=== PATIENT | male | born 1965 | race Caucasian/White ===

== ENCOUNTER 2018-12-01 15:19 | Observation (INO) | payer OTHER ==
[~2018-12-01] VITALS: Ht 180.3 cm; Wt 147.1 kg
--- NOTE | 2018-12-01 16:17 | ED Chest Pain ---
General Chief Complaint: Chest Pain Stated Complaint: CHEST PAIN; EDEMA; SOB Nursing Triage Note: Patient reports intermittent sternal/substernal chest pain rated 8/10 with movement for 1 week. He also reports shortness of breath and increased lower extremity edema bilaterally. Nursing Sepsis Screen: No Definite Risk Source: patient Exam Limitations: no limitations History of Present Illness Date Seen by Provider: Dec 01, 2018 Time Seen by Provider: 15:30 Initial Comments Patient is a 53-year-old male with history of hypertension dyslipidemia who presents with intermittent daily exertional substernal chest pain radiating to his back for the past 2 weeks. Pain is described as sharp and aching and lasts for several minutes at a time. Most recent episode was just prior to ED arrival while talking to his daughter. Pain is relieved by rest. Patient reports several episodes per day. During episodes, patient reports nausea and, shortness of breath and sweats. Patient currently symptom and pain free. Denies dizziness lightheadedness, palpitations, increased sleepiness swelling. No cough, sore throat, abdominal pain. Denies history of DVT or PE. No history of CAD. No other acute symptoms or complaints. Timing/Duration: changing over time, 12-24 hours (2 weeks) Severity/Quality: moderate Location: substernal Radiation: shoulders Activities at Onset: activity Prior CP/Workup: no prior chest pain ASA po HOME CARE COORDINATOR: No NTG SL HOME CARE COORDINATOR: No Associated Symptoms: shortness of breath Allergies and Home Medications Allergies Coded Allergies: lisinopril (Verified Allergy, Unknown, 12/01/18) Patient Home Medication List Home Medication List Reviewed: Yes Review of Systems Review of Systems Constitutional: no symptoms reported EENTM: No Symptoms Reported Respiratory: No Symptoms Reported Cardiovascular: See HPI Gastrointestinal: See HPI Genitourinary: See HPI Musculoskeletal: see HPI Skin: see HPI Psychiatric/Neurological: See HPI Endocrine: See HPI Hematologic/Lymphatic: See HPI Past Eltfwus-Sswofw-Ruzuvy Hx Patient Social History Alcohol Use: Denies Use Recreational Drug Use: No Smoking Status: Never a Smoker Type Used: Smokeless Tobacco 2nd Hand Smoke Exposure: No Recent Foreign Travel: No Contact w/Someone Who Travel: No Recent Infectious Disease Expo: No Recent Hopitalizations: No Physical Abuse: No Sexual Abuse: No Mistreated: No Fear: No Seasonal Allergies Seasonal Allergies: No Past Medical History Surgeries: Yes Gallbladder Respiratory: Yes Sleep Apnea Cardiac: Yes Hypertension Neurological: No Genitourinary: No Gastrointestinal: Yes (gangrenous gallbladder with sepsis) Gall Bladder Disease Musculoskeletal: No Endocrine: No HEENT: No Cancer: No Psychosocial: No Integumentary: No Physical Exam Vital Signs Vital Signs - First Documented 12/01/18 15:23 Temp 97.4 Pulse 77 Resp 18 B/P (MAP) 161/83 (109) Pulse Ox 97 O2 Delivery Room Air Capillary Refill : Less Than 3 Seconds Height, Weight, BMI Height: 6'" Weight: 318lbs. oz. 144.958519my; BMI Method:Stated General Appearance: No Apparent Distress, WD/WN HEENT: Normal ENT Inspection Neck: Full Range of Motion, Non Tender, Supple Respiratory: Chest Non Tender, Lungs Clear Cardiovascular: Regular Rate, Rhythm Extremity: Other (negative Homans sign) Neurologic/Psychiatric: Alert, Oriented x3 Skin: Normal Color, Warm/Dry Focused Exam Sepsis Stage: Ruled Out Progress/Results/Core Measures Results/Orders Lab Results Laboratory Tests Test 12/01/18 15:35 Range/Units White Blood Count 11.5 H 4.3-11.0 10^3/uL Red Blood Count 4.89 4.35-5.85 10^6/uL Hemoglobin 13.1 L 13.3-17.7 G/DL Hematocrit 39 L 40-54 % Mean Corpuscular Volume 80 80-99 FL Mean Corpuscular Hemoglobin 27 25-34 PG Mean Corpuscular Hemoglobin Concent 33 32-36 G/DL Red Cell Distribution Width 13.5 10.0-14.5 % Platelet Count 255 130-400 10^3/uL Mean Platelet Volume 9.7 7.4-10.4 FL Neutrophils (%) (Auto) 64 42-75 % Lymphocytes (%) (Auto) 27 12-44 % Monocytes (%) (Auto) 7 0-12 % Eosinophils (%) (Auto) 1 0-10 % Basophils (%) (Auto) 1 0-10 % Neutrophils # (Auto) 7.3 1.8-7.8 X 10^3 Lymphocytes # (Auto) 3.1 1.0-4.0 X 10^3 Monocytes # (Auto) 0.8 0.0-1.0 X 10^3 Eosinophils # (Auto) 0.2 0.0-0.3 10^3/uL Basophils # (Auto) 0.1 0.0-0.1 10^3/uL D-Dimer 0.36 0.00-0.49 UG/ML Sodium Level 139 135-145 MMOL/L Potassium Level 4.4 3.6-5.0 MMOL/L Chloride Level 99 98-107 MMOL/L Carbon Dioxide Level 26 21-32 MMOL/L Anion Gap 14 5-14 MMOL/L Blood Urea Nitrogen 13 7-18 MG/DL Creatinine 1.10 0.60-1.30 MG/DL Estimat Glomerular Filtration Rate > 60 BUN/Creatinine Ratio 12 Glucose Level 175 H 70-105 MG/DL Calcium Level 9.0 8.5-10.1 MG/DL Corrected Calcium 9.0 8.5-10.1 MG/DL Total Bilirubin 0.3 0.1-1.0 MG/DL Aspartate Amino Transf (AST/SGOT) 36 H 5-34 U/L Alanine Aminotransferase (ALT/SGPT) 58 H 0-55 U/L Alkaline Phosphatase 98 40-136 U/L Troponin I < 0.30 <0.30 NG/ML Total Protein 7.3 6.4-8.2 GM/DL Albumin 4.0 3.2-4.5 GM/DL My Orders Orders - GLORIA CHERRY DO Cbc With Automated Diff (12/01/18 15:57) Comprehensive Metabolic Panel (12/01/18 15:57) Troponin I (12/01/18 15:57) Chest Pa/Lat (2 View) (12/01/18 15:57) Fibrin Degradation Products (12/01/18 15:57) Ekg Tracing (12/01/18 15:58) Aspirin Chewable Tablet (Baby Aspirin Ch (12/01/18 17:00) Vital Signs/I&O 12/01/18 12/01/18 15:23 15:23 Temp 97.4 Pulse 77 Resp 18 B/P (MAP) 161/83 (109) Pulse Ox 97 O2 Delivery Room Air Room Air Blood Pressure Mean: 109 Departure Communication (Admissions) Time/Spoke to Admitting Phy: 17:04 Exertional chest pain today with escalating severity in the past 2 weeks. Patient asymptomatic in the ED. Chest x-ray, EKG lab nondiagnostic. Aspirin given. Dr. Carpenter accepts to [facility] Impression Primary Impression: Chest pain Disposition: 09 ADMITTED INPATIENT Condition: Stable Admissions Decision to Admit Reason: Admit from ER (General) Decision to Admit/Date: Dec 01, 2018 Time/Decision to Admit Time: 17:06 Transfer Method of Transfer: EMS Departure-Patient Inst. Referrals: NO,LOCAL PHYSICIAN (PCP/Family) Primary Care Physician GLORIA CHERRY DO Dec 01, 2018 16:17
--- NOTE | 2018-12-01 16:30 | Diagnostic Imaging Report ---
CLINICAL INDICATION: Patient with chest pain x1 week. EXAM: Chest x-ray PA and lateral views. COMPARISONS: None. FINDINGS: Lungs/pleura: Lungs are clear. There is no pneumothorax. There is no pleural effusion. Mediastinum: Unremarkable. Pulmonary vasculature: Unremarkable. Heart: Unremarkable. Bones/extrathoracic soft tissue: There are mildly hypertrophic degenerative osteophytes scattered throughout the thoracic spine. IMPRESSION: There is no radiographic evidence of acute cardiopulmonary process. Dictated by: Dictated on workstation # [id number]
[2018-12-01 16:43] LABS: HEMATOCRIT 39 % (40-54); HEMOGLOBIN 13.1 G/DL (13.3-17.7); MEAN CORPUSCULAR HEMOGLOBIN 27 PG (25-34); MEAN CORPUSCULAR HGB CONC 33 G/DL (32-36); MEAN CORPUSCULAR VOLUME 80 FL (80-99); MEAN PLATELET VOLUME 9.7 FL (7.4-10.4); PLATELET COUNT 255 10^3/uL (130-400); RED CELL DISTRIBUTION WIDTH 13.5 % (10.0-14.5); WHITE BLOOD COUNT 11.5 10^3/uL (4.3-11.0)
[2018-12-01 16:45] LABS: BASOPHILS # (AUTO) 0.1 10^3/uL (0.0-0.1); BASOPHILS % (AUTO) 1 % (0-10); EOSINOPHILS # (AUTO) 0.2 10^3/uL (0.0-0.3); EOSINOPHILS % (AUTO) 1 % (0-10); LYMPHOCYTES # (AUTO) 3.1 X 10^3 (1.0-4.0); LYMPHOCYTES % (AUTO) 27 % (12-44); MONOCYTES # (AUTO) 0.8 X 10^3 (0.0-1.0); MONOCYTES % (AUTO) 7 % (0-12); NEUTROPHILS # (AUTO) 7.3 X 10^3 (1.8-7.8); NEUTROPHILS % (AUTO) 64 % (42-75)
[2018-12-01 16:46] LABS: ALKALINE PHOSPHATASE 98 U/L (40-136); BILIRUBIN,TOTAL 0.3 MG/DL (0.1-1.0); BUN/CREATININE RATIO 12; CARBON DIOXIDE 26 MMOL/L (21-32); CHLORIDE 99 MMOL/L (98-107); GFR ESTIMATED > 60; GLUCOSE 175 MG/DL (70-105); POTASSIUM 4.4 MMOL/L (3.6-5.0); SODIUM 139 MMOL/L (135-145)
[2018-12-01 16:47] LABS: ALANINE AMINOTRANSFERASE 58 U/L (0-55); TOTAL PROTEIN 7.3 GM/DL (6.4-8.2)
[2018-12-01] MEDS ORDERED: ASPIRIN 81 MG CHEW (CHILDREN'S ASA) PO ONE (17:00)
--- OUTSIDE RECORDS SUMMARY | 2018-12-01 17:43 | XMS REPORT | Continuity of Care Document ---
Author Author [facility] Organization [facility] Address Unknown Phone Unavailable Care Team Providers Care Finance And Administration Manager Name Role Phone DARIA CARRERA M.D. PCP Insurance Providers Payer Name Policy Number Subscriber Name Relationship Auto Insurance Tin Aparicio Self / Same As Patient [facility] Tin Aapricio Self / Same As Patient Chief Complaint and Reason for Visit Chief Complaint Foot Pain Reason for Visit Contusion of foot [id number] Problems Medical Problems Problem Onset Date Status Contusion of foot Unknown Active Crush injury of foot Unknown Active Medications Medication Dose Route Sig Days/Qty Instructions Order Date Discontinued Date Status Metoprolol Succinate 300 Mg OR DAILY 10/27/09 Active Meloxicam 15 Mg PO DAILY 01/15/13 Active Levothyroxine Sodium 25 Mcg PO DAILY 01/15/13 Active Tramadol Hcl 50 Mg PO Every 8 hours as needed PRN PAIN 10 Qty 11/05/14 Active Social History Social History Problem Response Recorded Date/Time Smoking Status Never smoker 11/05/2014 12:23am Query Response Start Date Stop Date Smoking Status Never smoker Hospital Discharge Instructions No hospital discharge instructions. Plan of Care Discharge Date 11/05/14 1:16am Disposition 01 HOME, SELF-CARE Condition at Discharge Stable Instructions/Education Provided Crush Injury Contusion (ED) Prescriptions See Medications Section Referrals DARIA CARRERA M.D. Additional Instructions/Education Ice to help with swelling. Use Ibuprofen up to 800mg 3x/day for mild pain and Tramadol for breakthrough pain. Follow up with your regular doctor in 3-5 days if without improvement. Functional Status No functional status results. Allergies, Adverse Reactions, Alerts Allergen Type Severity Reaction Status Last Updated No Known Drug Allergy Allergy Unknown Active 04/10/14 Immunizations No immunization records. Vital Signs Acute Vital Signs Vital Response Date/Time Blood Pressure 185/104 mm Hg Blood Pressure Mean 131 mm Hg Temperature (Fahrenheit) 98.1 degrees F (96.0 - 99.9) Temperature (Calculated Celsius) 36.53970 degrees C Temperature Source Oral Pulse Pulse Rate: ED 82 bpm Respiratory Rate 16 breaths per minute (10 - 20) Height (Feet) 5 ft Height (Inches) 11 in. Weight (Pounds) 290 lbs Height 5 ft 11 in Weight 290 lb Body Mass Index 40.4 kg/m^2 Ambulatory Vital Signs Vital Response Date/Time Height 5 ft 11 in 09/26/2012 10:15am Weight 292 lbs 09/26/2012 10:15am Blood Pressure 140/108 mm Hg 09/26/2012 10:15am Pulse Rate 68 bpm 09/26/2012 10:15am Body Surface Area 2.63 m2 09/26/2012 10:15am Body Mass Index 40.7 kg/m2 09/26/2012 10:15am Results Test Source Date Result Interp. Ref. Range Comments Alanine Aminotransferase (ALT/SGPT) January 15, 2013 12:50am 34 U/L N 5-40 COMMENT: 01 Albumin January 15, 2013 12:50am 4.0 gm/dL N 3.2-5.0 COMMENT: 01 Albumin/Globulin Ratio January 15, 2013 12:50am 1.2 L 1.4-2.4 COMMENT: 01 Alkaline Phosphatase January 15, 2013 12:50am 58 U/L N 35-125 COMMENT: 01 Anion Gap January 15, 2013 12:50am 5.8 L 6-13 COMMENT: 01 Aspartate Amino Transf (AST/SGOT) January 15, 2013 12:50am 21 U/L N 5-40 COMMENT: 01 B-Type Natriuretic Peptide January 15, 2013 12:50am 94 pg/mL N 15-100 COMMENT: 01 BUN/Creatinine Ratio January 15, 2013 12:50am 12.3 COMMENT: 01 Basophils # (Auto) January 15, 2013 12:50am 0.1 K/uL N 0-0.2 COMMENT: 01 Basophils (%) (Auto) January 15, 2013 12:50am 0.7 % N 0-1 COMMENT: 01 Blood Urea Nitrogen January 15, 2013 12:50am 14 mg/dL N 8-25 COMMENT: 01 Calcium Level January 15, 2013 12:50am 9.2 mg/dL N 8.2-10.6 COMMENT: 01 Carbon Dioxide Level January 15, 2013 12:50am 24 mEq/L N 22-34 COMMENT: 01 Chloride Level January 15, 2013 12:50am 107 mEq/L N 98-116 COMMENT: 01 Creatinine January 15, 2013 12:50am 1.14 mg/dL N 0.9-1.6 COMMENT: 01 Eosinophils # (Auto) January 15, 2013 12:50am 0.5 K/uL N 0-0.8 COMMENT: 01 Eosinophils (%) (Auto) January 15, 2013 12:50am 4.2 % N 0-7.0 COMMENT: 01 Globulin January 15, 2013 12:50am 3.3 gm/dL H 2.0-3.0 COMMENT: 01 Hematocrit January 15, 2013 12:50am 42.3 % N 40.0-54.0 COMMENT: 01 Hemoglobin January 15, 2013 12:50am 14.6 g/dL N 14.0-18.0 COMMENT: 01 Immature Blood Cells January 15, 2013 12:50am 0.2 K/uL N 0-0.4 COMMENT: 01 Lymphocytes # (Auto) January 15, 2013 12:50am 2.7 K/uL N 0.9-5.2 COMMENT: 01 Lymphocytes (%) (Auto) January 15, 2013 12:50am 22.0 % N 16.0-44.0 COMMENT: 01 Mean Corpuscular Hemoglobin January 15, 2013 12:50am 27.3 pg N 26.0-33.0 COMMENT: 01 Mean Corpuscular Hemoglobin Concent January 15, 2013 12:50am 34.5 g/dL N 31.0-36.0 COMMENT: 01 Mean Corpuscular Volume January 15, 2013 12:50am 79.3 fL L 80.0-94.0 COMMENT: 01 Mean Platelet Volume January 15, 2013 12:50am 6.1 fL L 7.0-11.0 COMMENT: 01 Monocytes # (Auto) January 15, 2013 12:50am 0.7 K/uL N 0.16-1.0 COMMENT: 01 Monocytes (%) (Auto) January 15, 2013 12:50am 5.6 % N 2.0-9.0 COMMENT: 01 Neutrophils # (Auto) January 15, 2013 12:50am 7.9 K/uL N 1.9-8.0 COMMENT: 01 Neutrophils (%) (Auto) January 15, 2013 12:50am 65.8 % N 42.0-75.0 COMMENT: 01 Platelet Count January 15, 2013 12:50am 252 K/uL N 130-400 COMMENT: 01 Potassium Level January 15, 2013 12:50am 3.8 mEq/L N 3.5-5.1 COMMENT: 01 Random Glucose January 15, 2013 12:50am 132 mg/dL H 65-115 COMMENT: 01 Red Blood Count January 15, 2013 12:50am 5.33 M/uL N 4.60-5.40 COMMENT: 01 Red Cell Distribution Width January 15, 2013 12:50am 13.9 % N 11.5-14.5 COMMENT: 01 Sodium Level January 15, 2013 12:50am 133 mEq/L N 133-145 COMMENT: 01 Total Bilirubin January 15, 2013 12:50am 0.7 mg/dL N 0.1-1.3 COMMENT: 01 Total Protein January 15, 2013 12:50am 7.3 gm/dL N 6.0-8.4 COMMENT: 01 White Blood Count January 15, 2013 12:50am 12.1 K/uL H 5.0-10.0 COMMENT: 01 Bedside Troponin I January 15, 2013 1:15am < 0.05 ng/mL 0.00-0.05 <0.05 ng/mL=NORMAL0.05 - 0.40 ng/mL=CARDIAC CONDITION >0.40 ng/mL=SUGGESTS AMI Glomerular Filtration Rate Calc January 15, 2013 12:50am > 60.00 mL/min MULTIPLY RESULT BY 1.210 IF THE PATIENT IS -AMERICANUnits are mL/min/1.73 m2 > 60 Normal kidney function 30-59 Moderately decreased kidney function 15-29 Severely decreased kidney function <15 End-stage kidney failure Procedures No known history of procedures. Encounters Encounter Location Date/Time Departed Emergency Room [facility] 11/05/14 12:19am Recent Diagnosis
[2018-12-01 19:30] VITALS: BP 174/92
[2018-12-01] MEDS ORDERED: CATHETER FLUSH 10 ML SYR IV PRN (19:30)
[2018-12-01 19:42] VITALS: BP 154/92
[2018-12-01 19:45] VITALS: BP 154/92
[2018-12-01 20:00] VITALS: BP 176/95
[2018-12-02] VITALS: BP 151/83
[2018-12-02 04:00] VITALS: BP 160/87
[2018-12-02 04:01] LABS: BASOPHILS # (AUTO) 0.1 10^3/uL (0.0-0.1); BASOPHILS % (AUTO) 0 % (0-10); EOSINOPHILS # (AUTO) 0.2 10^3/uL (0.0-0.3); EOSINOPHILS % (AUTO) 2 % (0-10); HEMATOCRIT 39 % (40-54); HEMOGLOBIN 13.2 G/DL (13.3-17.7); LYMPHOCYTES # (AUTO) 3.3 X 10^3 (1.0-4.0); LYMPHOCYTES % (AUTO) 29 % (12-44); MEAN CORPUSCULAR HEMOGLOBIN 26 PG (25-34); MEAN CORPUSCULAR HGB CONC 34 G/DL (32-36); MEAN CORPUSCULAR VOLUME 78 FL (80-99); MEAN PLATELET VOLUME 9.3 FL (7.4-10.4); MONOCYTES # (AUTO) 0.9 X 10^3 (0.0-1.0); MONOCYTES % (AUTO) 8 % (0-12); NEUTROPHILS % (AUTO) 61 % (42-75); PLATELET COUNT 225 10^3/uL (130-400); RED CELL DISTRIBUTION WIDTH 14.3 % (10.0-14.5); WHITE BLOOD COUNT 11.5 10^3/uL (4.3-11.0)
[2018-12-02 04:19] LABS: ALANINE AMINOTRANSFERASE 62 U/L (0-55); ALBUMIN 3.9 GM/DL (3.2-4.5); ALKALINE PHOSPHATASE 97 U/L (40-136); BILIRUBIN,TOTAL 0.3 MG/DL (0.1-1.0); BUN/CREATININE RATIO 10; CALCIUM 9.2 MG/DL (8.5-10.1); CARBON DIOXIDE 22 MMOL/L (21-32); CHLORIDE 104 MMOL/L (98-107); CREATININE SERUM 1.01 MG/DL (0.60-1.30); GFR ESTIMATED > 60; GLUCOSE 116 MG/DL (70-105); POTASSIUM 3.7 MMOL/L (3.6-5.0); SODIUM 137 MMOL/L (135-145); TOTAL PROTEIN 6.8 GM/DL (6.4-8.2)
--- NOTE | 2018-12-02 05:29 | Pulmonary Consultation ---
History of Present Illness History of Present Illness Date of Consultation 12/02/18 05:22 Time Seen by Provider: 05:22 Date of Admission History of Present Illness 53yo presented to ED secondary to 8/10 substernal CP over the last 2 wks. worse with exertion. Rest improved CP. During episodes, patient reports nausea and, shortness of breath and sweats. Allergies and Home Medications Allergies Coded Allergies: lisinopril (Verified Allergy, Unknown, 12/01/18) Home Medications Amlodipine Besylate 10 Mg Tablet, 10 MG PO DAILY, (Reported) Aspirin 81 Mg Tablet.dr, 81 MG PO DAILY Prescribed by: CARL WALKER on 12/02/18 1400 Carvedilol 25 Mg Tab, 25 MG PO BID, (Reported) Furosemide 40 Mg Tablet, 40 MG PO DAILY, (Reported) Meloxicam 15 Mg Tablet, 15 MG PO DAILY, (Reported) Omeprazole 40 Mg Capsule.dr, 40 MG PO DAILY, (Reported) Past Uugjxsz-Ctnejx-Jnddof Hx Patient Social History Alcohol Use: Denies Use Recreational Drug Use: No Smoking Status: Never a Smoker Type Used: Smokeless Tobacco 2nd Hand Smoke Exposure: No Recent Foreign Travel: No Contact w/Someone Who Travel: No Recent Infectious Disease Expo: No Recent Hopitalizations: No Physical Abuse: No Sexual Abuse: No Mistreated: No Fear: No Seasonal Allergies Seasonal Allergies: No Past Medical History Surgeries: Yes (3 neck surgeries and gallbladder removal) Gallbladder Respiratory: Yes (Sleep apnea) Sleep Apnea Currently Using CPAP: Yes Currently Using BIPAP: No Cardiac: Yes Hypertension Neurological: No Genitourinary: No Gastrointestinal: Yes Gall Bladder Disease Musculoskeletal: Yes Arthritis Endocrine: No HEENT: No Cancer: No Psychosocial: No Integumentary: No Blood Disorders: No Adverse Reaction/Blood Tranf: No Family Medical History Cardiovascular disease 19 MOTHER Diabetes mellitus 19 FATHER Hypertension 19 FATHER 19 MOTHER G8 BROTHER Myocardial infarction 19 MOTHER Respiratory disorder 19 MOTHER Review of Systems Time Seen by Provider: 05:39 Constitutional: No: Fever, Chills, Sweats, Weakness, Malaise, Other Eyes: No: Pain, Vision change, Conjunctivae inflammation, Eyelid inflammation, Other, Redness ENT: No: Ear pain, Ear discharge, Nose pain, Nose discharge, Nose congestion, Mouth pain, Mouth swelling, Throat pain, Throat swelling, Other Respiratory: No: Cough, Dry, Shortness of breath, SOB with excertion, Wheezing, Hemoptysis, Pleuritic Pain, Sputum, Wheezing, Other Cardiovascular: Chest Pain; No: Palpitations, Paroxysmal Noc. Dyspnea Gastrointestinal: No: Nausea, Vomiting, Abdominal Pain, Diarrhea, Constipation, Melena, Hematochezia, Other Genitourinary: No Dysuria, No Frequency, No Incontinence, No Hematuria, No Retention, No Other Musculoskeletal: No: other, neck pain, shoulder pain, arm pain, back pain, hand pain, leg pain, foot pain Sepsis Event Evaluation Height, Weight, BMI Height: 5'11.00" Weight: 325lbs. 6.0oz. 147.453207my; 45.4 BMI Method:Stated Exam Exam Vital Signs Date Time Temp Pulse Resp B/P (MAP) Pulse Ox O2 Delivery O2 Flow Rate FiO2 12/02/18 04:35 99 Room Air 12/02/18 04:00 70 17 160/87 (111) 97 Room Air 12/02/18 01:00 75 12/02/18 00:50 99 Room Air 12/02/18 00:00 79 16 151/83 (105) 98 Room Air 12/01/18 20:02 99 Room Air 12/01/18 20:00 75 17 176/95 (122) 99 Room Air 12/01/18 19:45 73 22 154/92 (112) 99 Room Air 12/01/18 19:42 98.7 75 20 154/92 98 Room Air 12/01/18 19:30 98.3 72 20 174/92 (119) 98 Room Air 12/01/18 19:19 73 12/01/18 18:32 84 16 181/68 (105) 97 Room Air 12/01/18 15:23 97.4 77 18 161/83 (109) 97 Room Air 12/01/18 15:23 Room Air I & O 12/02/18 07:00 Intake Total 360 ml Output Total 350 ml Balance 10 ml Height & Weight Height: 5'11.00" Weight: 325lbs. 6.0oz. 147.979502wd; 45.4 BMI Method:Stated General Appearance: No Apparent Distress, WD/WN HEENT: PERRL/EOMI, Normal ENT Inspection, Pharynx Normal Neck: Full Range of Motion, Non Tender, Supple Respiratory: Chest Non Tender, No Accessory Muscle Use, No Respiratory Distress, Decreased Breath Sounds Cardiovascular: Regular Rate, Rhythm, No Edema Capillary Refill: Less Than 3 Seconds Gastrointestinal: non tender, soft Extremity: Normal Capillary Refill, Normal Inspection, No Pedal Edema Neurologic/Psychiatric: Alert, Oriented x3 Skin: Normal Color, Warm/Dry Lymphatic: No Adenopathy Results Lab Laboratory Tests 12/01/18 15:35 12/02/18 03:34 Assessment/Plan Assessment/Plan CP - Now resolved -Cardiology consulted -Troponins negative x 2 HTN -start Hydralazine PRN -Start home meds once known SIMONA -Home CPAP machine. Currently using Morbid obesity with probable OHS AALIYAH PIERRE DO Dec 02, 2018 05:29
[2018-12-02] MEDS ORDERED: hydrALAZINE (APESOLINE) 20 MG/ML VIAL IV PRN (05:45)
[2018-12-02 06:00] LABS: MAGNESIUM 2.2 MG/DL (1.8-2.4); PHOSPHORUS 3.1 MG/DL (2.3-4.7)
[2018-12-02] MEDS: CATHETER FLUSH 10 ML SYR IV SCH ×3 (07:55→14:07)
[2018-12-02 08:00] VITALS: BP 154/83
[2018-12-02] MEDS ORDERED: ASPIRIN 325 MG (5 GR) TABLET PO SCH (09:00)
[2018-12-02] MEDS ORDERED: FUROSEMIDE 40 MG (LASIX) TAB PO ONE (09:30)
[2018-12-02] MEDS ORDERED: CARVEDILOL 12.5 MG (COREG) TABLET PO ONE (09:30)
[2018-12-02] MEDS ORDERED: PANTOPRAZOLE 40 MG (PROTONIX) TAB PO NR (09:43)
[2018-12-02 12:00] VITALS: BP 126/78
--- NOTE | 2018-12-02 13:35 | Short Stay Summary-Hospitalist ---
History of Present Illness HPI/Chief Complaint the patient is a 53-year-old white male who reports for the past 2 weeks he said several episodes of severe stabbing sudden onset left precordial chest pain that radiates through to his back. Several episodes of been associated with activity and is had some associated shortness of breath one episode there was some almita phoresis which caused him to present to the emergency room. The episodes last several minutes in duration. He has no known past history of cardiovascular disease but does have a history of hypertension and reported elevated triglyceride level and there is a family history for early coronary disease his mother had rather diffuse vascular disease with multiple cardiac stents as well as peripheral artery stenting beginning at the age of 40. He has a history of chronic low level her function test elevation suggesting fatty liver disease as he is quite obese and also has a history of sleep apnea. His last episode was most severe lasted 3 or 4 minutes and again was of sudden onset and quite sharp and rather focal in nature. Patient reports that is an area of covers about 2 or 3 fingers in the left lower sternal border area. There is no radiation into the neck jaw or arm. Date Seen 12/02/18 Time Seen by a Provider: 08:00 Attending Physician Carl Walker MD PCP No,Local Physician Referring Physician Date of Admission Dec 01, 2018 at 17:40 Home Medications & Allergies Home Medications Reviewed patient Home Medication Reconciliation performed by pharmacy medication reconciliations landfill gas technician and/or nursing. Patients Allergies have been reviewed. Allergies Allergies Coded Allergies lisinopril (Verified Allergy, Unknown, 12/01/18) Past Bebjhnk-Syevey-Wwfdca Hx Past Med/Social Hx: Reviewed and Corrections made Patient Social History Alcohol Use: Denies Use Recreational Drug Use: No Smoking Status: Never a Smoker Type Used: Smokeless Tobacco 2nd Hand Smoke Exposure: No Physical Abuse Screen: No Sexual Abuse: No Recent Foreign Travel: No Contact w/other who traveled: No Recent Hopitalizations: No Recent Infectious Disease Expo: No Seasonal Allergies Seasonal Allergies: No Past Medical History Surgeries: Gallbladder Currently Using CPAP: Yes Currently Using BIPAP: No Cardiac: Hypertension Gastrointestinal: Gall Bladder Disease Musculoskeletal: Arthritis History of Blood Disorders: No Adverse Reaction to Blood Malik: No Family History Cardiovascular disease 19 MOTHER Diabetes mellitus 19 FATHER Hypertension 19 FATHER 19 MOTHER G8 BROTHER Myocardial infarction 19 MOTHER Respiratory disorder 19 MOTHER Review of Systems Constitutional: no symptoms reported, see HPI Respiratory: no symptoms reported, see HPI; No cough, No dyspnea on exertion, No hemoptysis, No orthopnea, No phlegm, No short of breath, No stridor, No wheezing Cardiovascular: see HPI, chest pain, edema, Hx of Intervention, palpitations, syncope, vascular heart diseas, other Gastrointestinal: other (denies heartburn dysphasia melena or bright red blood per rectum and also denies abdominal pain or change in bowel habit.) Physical Exam Physical Exam Vital Signs Vital Signs - First Documented 12/01/18 15:23 Temp 97.4 Pulse 77 Resp 18 B/P (MAP) 161/83 (109) Pulse Ox 97 O2 Delivery Room Air Capillary Refill : Less Than 3 Seconds Height, Weight, BMI Height: 5'11.00" Weight: 324lbs. 5.0oz. 147.645319dt; 45.4 BMI Method:Stated General Appearance: No Apparent Distress, WD/WN HEENT: PERRL/EOMI, Normal ENT Inspection, Pharynx Normal Neck: Full Range of Motion, Non Tender, Supple Respiratory: Chest Non Tender, No Accessory Muscle Use, No Respiratory Distress, Decreased Breath Sounds Cardiovascular: Regular Rate, Rhythm, No Edema, No Gallop, No JVD, No Murmur, Normal Peripheral Pulses Gastrointestinal: Normal Bowel Sounds, No Organomegaly, No Pulsatile Mass, Non Tender, Soft Extremity: Normal Capillary Refill, Normal Inspection, No Pedal Edema Neurologic/Psychiatric: Alert, Oriented x3 Skin: Normal Color, Warm/Dry Lymphatic: No Adenopathy Results Results/Procedures Labs Laboratory Tests 12/01/18 15:35 12/02/18 03:34 Patient resulted labs reviewed. Short Stay Diagnosis Discharge Diagnosis-Short Stay Admission Diagnosis 1.. Chest pain acute coronary syndrome ruled out 2. Hypertension 3. Reported hyperlipidemia. 4. Elevated liver function tests strongly suspect nonalcoholic fatty liver disease 5. Obstructive sleep apnea continue home CPAP. Final Discharge Diagnosis as per admission diagnosis Conclusion Plan chest pain was rather atypical in nature but the patient has multiple risk factors for coronary artery disease. He was evaluated by Dr. Garcia and is set up for outpatient echocardiogram as well as a nuclear medicine stress testing. Serial EKGs revealed no evidence for ischemia and serial troponin levels were n ormal. Vital signs were stable. He'll be discharged on his home medications with the addition of a baby aspirin daily. Discussed the importance of portion control cutting back on carbohydrates especially in attempt to effect weight loss. Advised to follow-up with his primary care physician to discuss further therapy for his hyperlipidemia to reduce future risk for vascular disease. Clinical Quality Measures AMI/AHF: ASA po Prior to arrival: No DVT/VTE Risk/Contraindication: Risk Factor Score Per Nursin RFS Level Per Nursing on Admit: 2=Moderate CARL WALKER MD Dec 02, 2018 13:35
[2018-12-02] MEDS ORDERED: OMEP40CA36 PO (13:41)
[2018-12-02] MEDS ORDERED: MELO15TA39 PO (13:41)
[2018-12-02] MEDS ORDERED: AMLO10TA7 PO (13:45)
[2018-12-02] MEDS ORDERED: FURO40TA4 PO (13:47)
[2018-12-02] MEDS ORDERED: CRV25T PO (13:47)
--- NOTE | 2018-12-02 13:53 | Consultation-Cardiology ---
HPI-Cardiology Cardiology Consultation: Date of Consultation 12/02/18 Date of Admission Attending Physician Dequan Carpenter MD Admitting Physician Ila,Local Physician Consulting Physician Steve GARCIA MD HPI: Time Seen by a Provider: 11:30 Chief Complaint: Chest pain This is a 53-year-old gentleman with history of hypertension and hyperlipidemia. He denies diabetes and active smoking. He does have family history of premature CAD. He presented with substernal chest pain radiating to the back as well. He describes it as sharp and only for a few seconds. No exacerbating or relieving factors. Denies any other significant symptoms as well. Review of Systems-Cardiology Review of Systems Constitutional: As described under HPI; No As described under HPI, No no symptoms reported, No chills, No fever, No lightheadedness Eyes: No As described under HPI, No no symptoms reported, No blindness, No bl urred vision, No contact lenses, No drainage, No decreased acuity, No foreign body sensation, No pain, No vision change Ears/Nose/Throat: No As described under HPI, No no symptoms reported, No chronic hearing loss, No ear discharge, No ear pain, No nasal drainage, No ulcerations Respiratory: No no symptoms reported; As described under HPI; No As described under HPI, No cough, No orthopnea, No shortness of breath, No SOB with excertion Cardiovascular: No no symptoms reported; As described under HPI; No As described under HPI; chest pain; No edema, No irregular heart rate, No lightheadedness, No palpitations Gastrointestinal: No no symptoms reported, No As described under HPI, No abdomen distended, No abdominal pain, No blood streaked bowels, No constipation, No diarrhea, No nausea, No vomiting, No stool coloration changes Genitourinary: No As described under HPI, No burning, No dysuria, No discharge, No frequency, No flank pain, No hematuria, No urgency Skin: No rash, No skin related problems, No ulcerations Psychiatric/Neurological: No anxiety, No depression, No seizure, No focal weakness, No syncope Hematologic: No bleeding abnormalities SYJ-Cirmxe-Fflwox Hx Patient Social History Alcohol Use: Denies Use Recreational Drug Use: No Smoking Status: Never a Smoker Type Used: Smokeless Tobacco 2nd Hand Smoke Exposure: No Recent Foreign Travel: No Recent Infectious Disease Expo: No Hospitalization with Isolation: Denies Physical Abuse Screen: No Sexual Abuse: No Past Medical History PMH As described under Assessment. Family Medical History Family History: Cardiovascular disease 19 MOTHER Diabetes mellitus 19 FATHER Hypertension 19 FATHER 19 MOTHER G8 BROTHER Myocardial infarction 19 MOTHER Respiratory disorder 19 MOTHER Allergies and Home Medications Allergies Coded Allergies: lisinopril (Verified Allergy, Unknown, 12/01/18) Home Medications Amlodipine Besylate 10 Mg Tablet, 10 MG PO DAILY, (Reported) Carvedilol 25 Mg Tab, 25 MG PO BID, (Reported) Furosemide 40 Mg Tablet, 40 MG PO DAILY, (Reported) Meloxicam 15 Mg Tablet, 15 MG PO DAILY, (Reported) Omeprazole 40 Mg Capsule.dr, 40 MG PO DAILY, (Reported) Patient Home Medication List Home Medication List Reviewed: Yes Physical Exam-Cardiology Physical Exam Vital Signs/I&O 12/02/18 12/02/18 12/02/18 12/02/18 04:00 04:35 07:00 08:00 Temp 97.8 Pulse 70 71 74 Resp 17 15 B/P (MAP) 160/87 (111) 154/83 (106) Pulse Ox 97 99 O2 Delivery Room Air Room Air Room Air 12/02/18 12/02/18 12/02/18 12/02/18 08:00 12:00 12:00 12:47 Temp 96.0 Pulse 68 70 Resp 16 B/P (MAP) 126/78 (94) Pulse Ox 99 O2 Delivery Room Air Room Air 12/02/18 00:00 Intake Total 360 ml Output Total 350 ml Balance 10 ml Capillary Refill : Less Than 3 Seconds Constitutional: appears stated age, AAO x 3; No apparent distress; well- developed, well-nourished HEENT: PERRL; No normal ENT inspection, No TMs normal, No pharynx normal, No scleral icterus (R), No scleral icterus (L), No pale conjunctivae (R), No pale conjunctivae (L), No photophobia, No TM abnormal (R), No TM abnormal (L), No pharyngeal erythema, No tonsillar exudate, No other, No discharge, No EOMI; hearing is well preserved; No hard of hearing; oral hygience is good; No ulceration, No xanthelasmas are seen Neck: No non-tender, No full range of motion, No supple, No normal inspection, No carotid bruit, No limited range of motion, No lymphadenopathy (R), No lymphadenopathy (L), No tender lateral, No tender midline, No thyromegaly, No other; carotid pulses are 2 + bilaterally; No with good upstrokes Respiratory: No accessory muscle use, No respiratory distress, No chest tender, No chest expansion is symmetric; chest is bilaterally symmetric; No lungs clear to percussion; lungs clear to auscultation; No crackles, No rhonchi, No rales, No stridor, No wheezing, No pleural rub, No other Cardiovascular: regular rate-rhythm; No irregularly irregular, No extra beats, No parasternal heave is noted, No JVD, No edema, No bradycardia, No tachycardia, No point of maximal impulse, No cardiac thrills are palpable; S1 and S2; No gallop/S3, No gallop/S4, No diastolic murmur, No systolic murmur, No friction rub, No click, No other Gastrointestinal: No tender, No soft, No round, No distended, No pulsatile mass, No organomegaly, No guarding, No rebound, No tenderness, No hernia, No mass, No audible bowel sounds, No abnormal bowel sounds, No abdominal bruits, No spleenomegaly, No other Rectal: deferred Extremities: No normal range of motion, No non-tender, No normal inspection, No pedal edema, No calf tenderness, No normal capillary refill, No pelvis stable, No calf tenderness, No inflammation, No pedal edema, No slow capillary refill, No swelling, No other, No abrasion, No clubbing, No cyanosis, No ecchymosis, No laceration, No no lower extremity edema bilateral, No significant edema, No tenderness, No wound Neurologic/Psychiatric: no motor/sensory deficits, alert, normal mood/affect, oriented x 3, power is 5/5 both on sides Skin: No normal color, No warm/dry, No cyanosis, No cool, No diaphoresis, No damp, No ecchymosis, No jaundice, No mottled, No pallor, No rash, No tattoos/piercings, No ulcerations, No rash on exposed areas, No ulcerations on exposed areas, No other Data Review Labs Laboratory Tests 12/01/18 15:35: White Blood Count 11.5H, Red Blood Count 4.89, Hemoglobin 13.1L, Hematocrit 39L, Mean Corpuscular Volume 80, Mean Corpuscular Hemoglobin 27, Mean Corpuscular Hemoglobin Concent 33, Red Cell Distribution Width 13.5, Platelet Count 255, Mean Platelet Volume 9.7, Neutrophils (%) (Auto) 64, Lymphocytes (%) (Auto) 27, Monocytes (%) (Auto) 7, Eosinophils (%) (Auto) 1, Basophils (%) (Auto) 1, Neutrophils # (Auto) 7.3, Lymphocytes # (Auto) 3.1, Monocytes # (Auto) 0.8, Eosinophils # (Auto) 0.2, Basophils # (Auto) 0.1, D-Dimer 0.36, Sodium Level 139, Potassium Level 4.4, Chloride Level 99, Carbon Dioxide Level 26, Anion Gap 14, Blood Urea Nitrogen 13, Creatinine 1.10, Estimat Glomerular Filtration Rate > 60, BUN/Creatinine Ratio 12, Glucose Level 175H, Calcium Level 9.0, Corrected Calcium 9.0, Total Bilirubin 0.3, Aspartate Amino Transf (AST/SGOT) 36H, Alanine Aminotransferase (ALT/SGPT) 58H, Alkaline Phosphatase 98, Troponin I < 0.30, Total Protein 7.3, Albumin 4.0 12/01/18 23:49: Troponin I < 0.028 12/02/18 03:34: White Blood Count 11.5H, Red Blood Count 5.03, Hemoglobin 13.2L, Hematocrit 39L, Mean Corpuscular Volume 78L, Mean Corpuscular Hemoglobin 26, Mean Corpuscular Hemoglobin Concent 34, Red Cell Distribution Width 14.3, Platelet Count 225, Mean Platelet Volume 9.3, Neutrophils (%) (Auto) 61, Lymphocytes (%) (Auto) 29, Monocytes (%) (Auto) 8, Eosinophils (%) (Auto) 2, Basophils (%) (Auto) 0, Neutrophils # (Auto) 7.0, Lymphocytes # (Auto) 3.3, Monocytes # (Auto) 0.9, Eosinophils # (Auto) 0.2, Basophils # (Auto) 0.1, Sodium Level 137, Potassium Level 3.7, Chloride Level 104, Carbon Dioxide Level 22, Anion Gap 11, Blood Urea Nitrogen 10, Creatinine 1.01, Estimat Glomerular Filtration Rate > 60, BUN/Creatinine Ratio 10, Glucose Level 116H, Calcium Level 9.2, Corrected Calcium 9.3, Total Bilirubin 0.3, Aspartate Amino Transf (AST/SGOT) 34, Alanine Aminotransferase (ALT/SGPT) 62H, Alkaline Phosphatase 97, Total Protein 6.8, Albumin 3.9, Phosphorus Level 3.1, Magnesium Level 2.2 12/02/18 06:25: Troponin I < 0.028 ECG Impression ECG Initial ECG Rhythm: Normal Sinus Initial ECG Impression: Normal A/P-Cardiology Assessment/Admission Diagnosis Chest pain, Hypertension, Hyperlipidemia, Morbid obesity. Plan Acute coronory syndrome ruled out with negative serial troponin. Negative EKG. Echocardiogram and nuclear stress testing day after tomorrow. Patient can be discharged. However he understands that if he has severe chest pain he will seek immediate medical attention. Hypertension, continue carvedilol and amlodipine. Systolic blood pressure 126 mmHg. Hyperlipidemia, will require statin therapy. Thank you for your consultation. Please call me if you have any questions. Daisy Garcia MD, FACP, FACC, FSCAI, FHRS, CCDS Interventional Cardiology Cardiac Electrophysiology Vascular Medicine and Endovascular Interventions Clinical Quality Measures AMI/AHF: ASA po Prior to arrival: No DVT/VTE Risk/Contraindication: Risk Factor Score Per Nursin RFS Level Per Nursing on Admit: 2=Moderate Steve GARCIA MD Dec 02, 2018 1:53 pm
[2018-12-02] MEDS ORDERED: ASPI-586 PO (14:00)
[2018-12-02] MEDS ORDERED: CARVEDILOL 12.5 MG (COREG) TABLET PO SCH (21:00)
[2018-12-02] MEDS ORDERED: NON-FORMULARY MEDICATION 1 EA EA (Carvedilol (Coreg) 25 MG) PO SCH (21:00)
[2018-12-03] MEDS ORDERED: NON-FORMULARY MEDICATION 1 EA EA (Amlodipine Besylate 10 MG) PO SCH (09:00)
[2018-12-03] MEDS ORDERED: PANTOPRAZOLE 40 MG (PROTONIX) TAB PO SCH (09:00)
[2018-12-03] MEDS ORDERED: MELOXICAM 7.5 MG (MOBIC) TABLET PO SCH (09:00)
[2018-12-03] MEDS ORDERED: FUROSEMIDE 40 MG (LASIX) TAB PO SCH ×2 (09:00)
[2018-12-03] MEDS ORDERED: NON-FORMULARY MEDICATION 1 EA EA (Omeprazole 40 MG) PO SCH (09:00)
[2018-12-03] MEDS ORDERED: amLODIPine 10 MG (NORVASC) TAB PO SCH (21:00)
== END 2018-12-02 13:29 | disposition home or self-care (01) ==
LOC: EDUNIT# 15:19 → ER FS 15:22 → ICU 17:40 → UNDOADMOB 17:40 → ICU 19:15 → UNDODISOB 12-02 14:40
PROVIDERS: ADMIT Internal Medicine; ATTEND Internal Medicine
DX: R07.9 Chest pain, unspecified (principal); I10 Essential (primary) hypertension; E78.5 Hyperlipidemia, unspecified; M19.90 Unspecified osteoarthritis, unspecified site; R94.5 Abnormal results of liver function studies; G47.33 Obstructive sleep apnea (adult) (pediatric); E66.01 Morbid (severe) obesity due to excess calories; Z68.42 Body mass index [BMI] 45.0-49.9, adult; Z82.49 Family history of ischemic heart disease and other diseases of the circulatory system; Z83.3 Family history of diabetes mellitus; Z83.6 Family history of other diseases of the respiratory system; Z88.8 Allergy status to other drugs, medicaments and biological substances
CPT/HCPCS: 36415; 71046; 80053; 83735; 84100; 84484; 85025; 85379; 93005; G0378

== ENCOUNTER → 2018-12-04 | Outpatient (CLI) | payer OTHER ==
[~2018-12-04] VITALS: Ht 180.3 cm; Wt 144.2 kg
[~2018-12-04] MED LIST: AMLO10TA7 PO; ASPI-586 PO; CATHETER FLUSH 10 ML SYR IV PRN; CRV25T PO; FURO40TA4 PO; MELO15TA39 PO; OMEP40CA36 PO; REGADENOSON 0.4 MG/5 ML SYR (LEXISCAN) IV ONE
== END ==
LOC: CARD 08:02
PROVIDERS: ATTEND Internal Medicine Interventional Cardiology
DX: I51.7 Cardiomegaly (principal); I34.0 Nonrheumatic mitral (valve) insufficiency; I87.8 Other specified disorders of veins
CPT/HCPCS: 78452; 93017; 93306

== ENCOUNTER 2019-07-02 05:54 | Outpatient (CLI) | payer OTHER ==
[~2019-07-02] VITALS: Ht 180 cm; Wt 143.0 kg
[~2019-07-02 05:54] MED LIST changes: -CATHETER FLUSH 10 ML SYR IV PRN; +OMEP40CA27 PO; -OMEP40CA36 PO; -REGADENOSON 0.4 MG/5 ML SYR (LEXISCAN) IV ONE
[2019-07-02] MEDS ORDERED: OMEG-109 PO (15:52)
[2019-07-02] MEDS ORDERED: MULT1CAP27 PO (15:52)
[2019-07-02] MEDS ORDERED: TORS20TA3 PO (15:52)
== END 2019-07-02 15:55 | disposition home or self-care (01) ==
LOC: PREOP 05:54
PROVIDERS: ATTEND Surgery
DX: Z01.818 Encounter for other preprocedural examination (principal)

== ENCOUNTER 2019-07-04 09:42 | Day surgery (SDC) | payer OTHER ==
--- NOTE | 2019-07-02 02:32 | HISTORY AND PHYSICAL ---
DATE OF SERVICE: DATE OF ADMISSION 07/04/2019 ATTENDING PRIMARY CARE PHYSICIAN: Dr. Covarrubias. HISTORY OF PRESENT ILLNESS: The patient is a 53-year-old male who was referred over to us in need of a screening colonoscopy. The patient reports at this point in his life he has never had one done before. He did report that they did do a Cologuard test, which did come back Hemoccult positive. He reports he has not noticed any visible blood in the stool; however. He also denies any dark tarry stools as well as no family history of any colon cancer. He denies any diarrhea, constipation or any abdominal pain. PAST MEDICAL HISTORY: Hypercholesterolemia, anxiety, depression, hypertension. PAST SURGICAL HISTORY: Laparoscopic cholecystectomy 2017, C6-C7 fusion 2010, C4-C5 fusion 2011, ORIF C4 and C5 in 2011, left shoulder arthroscopy 1989, vasectomy in 1992. ALLERGIES: FLEXERIL, POISON YOANA. MEDICATIONS: Lipitor, Revatio, Lexapro, Zoloft, Cozaar, aspirin 81 mg, fish oil, multivitamin. SOCIAL HISTORY: Negative for smoke. Positive for chewing tobacco 40 years. Previous for alcohol. FAMILY HISTORY: Father had diabetes, hypertension. Brother had hypertension. Paternal grandfather had diabetes, myocardial infarction at 78 years of age, hypertension. Paternal grandmother had hypertension. Paternal aunt had breast cancer. VITAL SIGNS: Blood pressure is 135/79. Current weight is 306.0, height 5 feet 11 inches. REVIEW OF SYSTEMS: Well-nourished male in no acute distress. He is not experiencing any shortness of breath or difficulty breathing. No chest pain, palpitations or diaphoresis. No nausea, vomiting or abdominal pain. No diarrhea or constipation. No visible red blood per rectum; however, did report a positive Cologuard test. No dark tarry stools. No fever or chills. No recent inadvertent weight loss. All other review of systems are negative. PHYSICAL EXAMINATION: CHEST: Clear. Good breath sounds bilaterally. HEART: Regular, no murmurs. EXTREMITIES: No lower extremity edema. Negative Homans sign. HEENT: No scleral icterus. NECK: No cervical lymphadenopathy. ABDOMEN: Soft, nontender, nondistended. SKIN: Warm, dry and pink. NEUROLOGIC: Awake, alert and oriented x3. ASSESSMENT AND PLAN: A 53-year-old male who is in need of a screening colonoscopy. The risks and benefits of the procedure as well as the procedure and home care instructions were explained to the patient. The patient verbalized understanding of instructions and agrees to proceed as planned. At this time, we will proceed with scheduling the patient for a screening colonoscopy. Job ID: [id number] DocumentID: [id number] Dictated Date: 06/29/2019 09:46:08 Keeper Head Date: 06/29/2019 10:05:36 Dictated By: VIOLA ISBELL
[2019-07-04] VITALS (8 sets, daily range): BP systolic 115–137; BP diastolic 59–81
[~2019-07-04] VITALS: Ht 180 cm; Wt 143.0 kg
[~2019-07-04 09:42] MED LIST changes: +MULT1CAP27 PO; +OMEG-109 PO; +TORS20TA3 PO
[2019-07-04] MEDS ORDERED: NS IV 500 ML 500 ML ONE (09:43)
[2019-07-04] MEDS ORDERED: NS IV 500 ML 500 ML IV PRN (09:46)
[2019-07-04] MEDS ORDERED: LIDOCAINE JELLY 2% 6 ML SYRINGE MM PRN (10:00)
[2019-07-04] MEDS ORDERED: fentaNYL INJECTION 100 MCG/2 ML AMP IVP ONE (10:00)
[2019-07-04] MEDS ORDERED: MIDAZOLAM 5 MG/5 ML (VERSED) VIAL IV PRN (10:00)
[2019-07-04] MEDS ORDERED: LIDOCAINE JELLY 2% 6 ML SYRINGE ONE (10:08)
[2019-07-04] MEDS ORDERED: fentaNYL INJECTION 100 MCG/2 ML AMP ONE (10:09)
[2019-07-04] MEDS ORDERED: MIDAZOLAM 5 MG/5 ML (VERSED) VIAL ONE ×2 (10:09)
--- NOTE | 2019-07-04 10:10 | Conscious Sedation/ASA ---
Conscious Sedation Pre-Proced Time 10:00 ASA Score 2 For ASA 3 and 4: Consider anesthesia and medical clearance. Also, for patients with a history of failed moderate sedation consider anesthesia. Airway Lungs Heart ASA score ASA 1: a normal healthy patient ASA 2: a patient with a mild systemic disease (mid diabetes, controlled hypertension, obesity ASA 3: a patient with a severe systemic disease that limits activity (angina, COPD, prior Myocardial infarction) ASA 4: a patient with an incapacitating disease that is a constant threat to life (CHF, renal failure) ASA 5: a moribund patient not expected to survive 24 hrs. (ruptured aneurysm) ASA 6: a declared brain- patient whose organs are being harvested. For emergent operations, add the letter E after the classification Mallampati Classification Grade 2 Sedation Plan Analgesia, Amnesia, Plan communicated to team members, Discussed options with patient/fam, Discussed risks with patient/fam The patient is an appropriate candidate to undergo the planned procedure, sedation, and anesthesia. The patient immediately re-assessed prior to indication. CAROLINE GUERRERO MD Jul 04, 2019 10:10
--- NOTE | 2019-07-04 10:11 | Progress Note-Pre Operative ---
Pre-Operative Progress Note H&P Reviewed The H&P was reviewed, patient examined and no changes noted. Date Seen by Provider: Jul 04, 2019 Time Seen by Provider: 10:00 Date H&P Reviewed: Jul 04, 2019 Time H&P Reviewed: 10:00 Pre-Operative Diagnosis: CAROLINE Keane MD Jul 04, 2019 10:11
--- NOTE | 2019-07-04 10:13 | Discharge Inst-Surgical ---
D/C Lap Instructions-YOLANDA Follow Up Activity as tolerated High Fiber Diet 25g or more per day Avoid Alcohol, Caffeine, Spicy [place] and Acid foods. Drink 64 fluid oz or more of fluids per day. Symptoms to Report: Fever over 101 degree F, Nausea/Vomiting If any problems/questions: Contact your physician or go to Emergency Room CAROLINE GUERRERO MD Jul 04, 2019 10:13
[2019-07-04] MEDS ORDERED: HYDROcodone/APAP 5 MG/325 MG (LORTAB) TAB PO PRN (10:15)
[2019-07-04] MEDS ORDERED: ONDANSETRON 4 MG/2 ML (SDV) Z0FRAN IVP PRN (10:15)
[2019-07-04] MEDS ORDERED: ACETAMINOPHEN 325 MG TABLET PO PRN (10:15)
[2019-07-04] MEDS ORDERED: morphine INJ 10 MG/ML 1ML (SYR OR VIAL) IVP PRN ×2 (10:15)
--- NOTE | 2019-07-04 10:40 | Progress Note-Post Operative ---
Post-Operative Progess Note Surgeon (s)/Watch Repair Person (s) Surgeon CAROLINE GUERRERO MD Watch Repair Person: none Pre-Operative Diagnosis screening colo Post-Operative Diagnosis mild chronic stage 2 ext and int hemorrhoids. Procedure & Operative Findings Date of Procedure 07/04/19 Procedure Performed/Findings colonoscopy Anesthesia Type cs Estimated Blood Loss Estimated blood loss (mL): minimal Specimens/Packing Specimens Removed none CAROLINE GUERRERO MD Jul 04, 2019 10:39
--- NOTE | 2019-07-04 14:57 | OPERATIVE REPORT ---
DATE OF SERVICE: 07/04/2019 ATTENDING PRIMARY CARE PHYSICIAN: Dr. Hayedn Covarrubias. PREOPERATIVE DIAGNOSIS: Screening colonoscopy. POSTOPERATIVE DIAGNOSES: Mild chronic stage II external and internal hemorrhoids. PROCEDURE: Colonoscopy. SURGEON: Caroline Guerrero MD. ANESTHESIA: Conscious sedation. ESTIMATED BLOOD LOSS: Minimal. FINDINGS: Same as postoperative diagnoses. DISPOSITION: The patient tolerated the procedure well. INDICATIONS: The patient is a 53-year-old male who was referred over to us for screening colonoscopy. He has not had a colonoscopy up to this point in his life. He does not report any major issues with diarrhea nor constipation as well as no red blood per rectum nor any dark tarry stools. He did undergo Cologuard test, which did come back positive. DESCRIPTION OF PROCEDURE: The patient was brought to the endoscopy suite, laid in left lateral decubitus position. After adequate IV pain and sedative medications and conscious sedation anesthesia, a digital rectal examination was performed, which revealed mild chronic stage II external and internal hemorrhoids, not actively edematous nor inflamed and no bleeding. Normal sphincter tone was felt and there were no palpable masses. Prostate gland was palpable and appeared normal. The endoscope was then intubated into anus and rectum gently insufflated. The endoscope was then advanced to the valves of Rosario of the rectum with no polyps or any neoplasms identified. Through the sigmoid colon, there were no diverticulosis identified. The endoscope was then advanced to the remainder of the descending, transverse and ascending colon to the cecum. These segments were normal. There were no polyps or any neoplasms identified throughout the colon or rectum. Endoscope was then slowly withdrawn while taking a second look and suctioning of residual air with no additional findings. The patient tolerated the procedure well. We will recommend medical management with a high fiber diet with 30 grams of fiber a day as well as significant amounts of water to promote soft stools on a daily basis. He does not have any family history of colon cancer and if he is asymptomatic, he may wait 10 years for his next colonoscopy. Job ID: [id number] DocumentID: [id number] Dictated Date: 07/04/2019 10:35:16 Handcrew Foreman Date: 07/04/2019 14:56:41 Dictated By: CAROLINE GUERRERO MD
== END 2019-07-04 11:10 | disposition home or self-care (01) ==
LOC: ENDO 09:42
PROVIDERS: ATTEND Surgery
DX: Z12.11 Encounter for screening for malignant neoplasm of colon (principal); K64.1 Second degree hemorrhoids; E78.00 Pure hypercholesterolemia, unspecified; F41.9 Anxiety disorder, unspecified; F32.9 Major depressive disorder, single episode, unspecified; I10 Essential (primary) hypertension; F17.220 Nicotine dependence, chewing tobacco, uncomplicated; Z98.1 Arthrodesis status; Z79.82 Long term (current) use of aspirin; Z79.899 Other long term (current) drug therapy

== ENCOUNTER 2020-05-10 18:44 | Emergency (ER) | payer BC, OTHER ==
[~2020-05-10 18:44] MED LIST changes: +AMLO-251 PO; -AMLO10TA7 PO
--- NOTE | 2020-05-10 19:41 | ED Fall/Injury ---
General Chief Complaint: Trauma-Non Activation Stated Complaint: FALL; LT LEG INJ Nursing Triage Note: Pt states he missed a step and fell on the porch tonight. Pt presents with left upper leg pain Source: patient History of Present Illness Date Seen by Provider: May 10, 2020 Time Seen by Provider: 18:58 Initial Comments 54-year-old male presents after missing a step on his front porch and slipping. He hit his left leg on a cinderblock when he fell. He states that he has increased pain with trying to bear any weight. He also bumped his head on an infant's bed that was in the yard. He denies losing consciousness or having any significant head or neck pain. He does have chronic neck pain but states it is not any worse than normal. He denies any new numbness or tingling in his arms or legs. He has had no loss of bowel or bladder control. 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 Allergies and Home Medications Allergies Coded Allergies: cyclobenzaprine (Verified Allergy, Mild, ITCHING, 07/02/19) lisinopril (Verified Allergy, Mild, COUGH, 07/02/19) Home Medications Amlodipine Besylate 10 Mg Tablet, 10 MG PO DAILY, (Reported) Aspirin 81 Mg Tablet.dr, 81 MG PO DAILY Prescribed by: CARL WALKER on 12/02/181399 Carvedilol 25 Mg Tab, 25 MG PO BID, (Reported) Furosemide 40 Mg Tablet, 40 MG PO DAILY, (Reported) Meloxicam 15 Mg Tablet, 15 MG PO DAILY, (Reported) Multivitamin 1 Each Capsule, 1 EACH PO DAILY, (Reported) [place]-3 Fatty Acids/Fish Oil 1 Each Capsule, 1 EACH PO DAILY, (Reported) Omeprazole 40 Mg Capsule.dr, 40 MG PO DAILY, (Reported) Torsemide 20 Mg Tablet, 40 MG PO Q48H, (Reported) Patient Home Medication List Home Medication List Reviewed: Yes Review of Systems Review of Systems Constitutional: No chills, No dizziness, No fever Eyes: No Symptoms Reported Ears, Nose, Mouth, Throat: no symptoms reported Respiratory: no symptoms reported Cardiovascular: no symptoms reported Gastrointestinal: No nausea, No vomiting Genitourinary: no symptoms reported Musculoskeletal: see HPI Skin: see HPI, other (abrasions and contusion to left lateral thigh and leg) Psychiatric/Neurological: Denies Headache, Denies Numbness, Denies Paresthesia Past Siljwuq-Svjtdq-Rzpcam Hx Past Med/Social Hx: Reviewed Nursing Past Med/Soc Hx Patient Social History Alcohol Use: Denies Use Recreational Drug Use: No Type Used: Smokeless Tobacco 2nd Hand Smoke Exposure: No Recent Foreign Travel: No Contact w/Someone Who Travel: No Recent Infectious Disease Expo: No Recent Hopitalizations: No Physical Abuse: No Sexual Abuse: No Seasonal Allergies Seasonal Allergies: No Past Medical History Surgeries: Yes (3 neck surgeries, SHOULDER, ) Gallbladder, Vasectomy Respiratory: Yes Sleep Apnea Currently Using CPAP: Yes Currently Using BIPAP: No Cardiac: Yes (PASSED STRESS TEST 2019) Hypertension Neurological: No Sexually Transmitted Disease: No HIV/AIDS: No Genitourinary: No Gastrointestinal: Yes Gastroesophageal Reflux Musculoskeletal: Yes Arthritis Endocrine: No HEENT: No Loss of Vision: Denies Hearing Impairment: Denies Cancer: No Psychosocial: No Integumentary: No Blood Disorders: No Adverse Reaction/Blood Tranf: No (N/A) Family Medical History Cardiovascular disease 19 MOTHER Diabetes mellitus 19 FATHER Hypertension 19 FATHER 19 MOTHER G8 BROTHER Myocardial infarction 19 MOTHER Respiratory disorder 19 MOTHER Physical Exam Vital Signs Vital Signs - First Documented 05/10/20 18:50 Pulse 70 Resp 18 B/P (MAP) 175/69 (104) Pulse Ox 100 O2 Delivery Room Air Capillary Refill : Less Than 3 Seconds Height, Weight, BMI Height: 5'11.00" Weight: 318lbs. 0.0oz. 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, alert, oriented x 3 Skin: warm/dry, other (abrasions to left thigh and leg) Shawn Coma Score Best Eye Response: (4) Open Spontaneously Best Verbal Response: (5) Oriented Best Motor Response: (6) Obeys Commands Shawn Total: 15 Progress/Results/Core Measures Results/Orders My Orders Orders - NILO GALLO MD Femur 2 View Left (05/10/20 19:15) Tibia Fibula 2 View Left (05/10/20 19:15) Franklin Bandage (05/10/20 19:58) Ice: Apply To Affected Area (05/10/20 19:58) Acetaminophen Tablet (Tylenol Tablet) (05/10/20 19:58) Vital Signs/I&O 05/10/20 05/10/20 18:50 20:08 Pulse 70 70 Resp 18 18 B/P (MAP) 175/69 (104) 175/69 (104) Pulse Ox 100 100 O2 Delivery Room Air Room Air Blood Pressure Mean: 104 Progress Progress Note #1: Progress Note obtain femur and tib/fib xrays. Progress Note #2: Progress Note no acute fracture or dislocation on imaging. treat with franklin bandage for compression, ice packs for pain and swelling, acetaminophen on top of his meloxicam he takes at home already for chronic neck pain. He also reports having an appt on Tuesday with Dr. Covarrubias for follow up. 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 He also refused crutches or walker and stated he would hobble around on his leg rather than use the devices. Diagnostic Imaging Diagonstic Imaging: Xray Plain Films/CT/US/NM/MRI: femur Comments [facility] [place], [place] NAME: APARICIOELENA Rome [facility] REC#: [id number] PT STATUS: REG ER : 1965 PHYSICIAN: NILO GALLO MD ADMIT DATE: 05/10/20/ER FS Draft Date of Exam:05/10/20 FEMUR 2 VIEW LEFT INDICATION: Left thigh pain after fall. COMPARISON: Left tibia and fibula radiographs performed concurrently. TECHNIQUE: AP and lateral views of the left femur. FINDINGS: There is no acute fracture within the left femur. The hip and knee are grossly normal in alignment. Mild degenerative arthritis of the left hip. No soft tissue gas or radiopaque foreign body. No appreciable knee joint effusion. IMPRESSION: No fracture in the left femur. Dictated on workstation # [id number] Dict: 05/10/201940 Trans: 05/10/201944 [facility] [id number] Interpreted by: WILLIAMS STEPHENSON MD Electronically signed by: Liligonsharshad Imaging: Xray Plain Films/CT/US/NM/MRI: leg Comments [facility]. [place], [place] NAME: ELENA APARICIO [facility] REC#: [id number] PT STATUS: REG ER : 1965 PHYSICIAN: NILO GALLO MD ADMIT DATE: 05/10/20/ER FS Draft Date of Exam:05/10/20 TIBIA FIBULA 2 VIEW LEFT INDICATION: Left leg pain after fall. COMPARISON: None available. TECHNIQUE: Two views of the left tibia and fibula. FINDINGS: No acute fracture or traumatic malalignment. Smooth periosteal thickening in the proximal tibia may be due to old injury. No radiopaque foreign body or soft tissue gas. IMPRESSION: No acute fracture in the left lower leg. Dictated on workstation # [id number] Dict: 05/10/201941 Trans: 05/10/201945 [facility] [id number] Interpreted by: WILLIAMS STEPHENSON MD Electronically signed by: Departure Impression Primary Impression: Pain of left lateral upper thigh Additional Impressions: Contusion of left thigh, initial encounter Contusion of left lower leg, initial encounter Abrasion, left lower leg, initial encounter Abrasion, left thigh, initial encounter Fall from steps Qualified Codes: W10.9XXA - Fall (on) (from) unspecified stairs and steps, initial encounter Disposition: HOME, SELF-CARE Condition: Stable Departure-Patient Inst. Decision time for Depature: 20:03 Referrals: TERRA COVARRUBIAS MD (PCP/Family) Primary Care Physician Patient Instructions: Abrasions ED, Minor Contusion ED Add. Discharge Instructions: Use compression wraps to help with pain and swelling. Keep abrasions clean with soap and water. May apply antibiotic ointment 2-3 times a day as needed to help the abrasions heal May take Acetaminophen in addition to your Meloxicam at home to treat your pain. Ice 20-30 minutes every few hours as needed for pain and swelling as well. Try to rest and elevate your leg when you can to help with pain and swelling. All discharge instructions reviewed with patient and/or family. Voiced understanding. Images Extremities-Lower 1 - Abrasion, Contusion, Tenderness 2 - Abrasion, Contusion, Tenderness NILO GALLO MD May 10, 2020 19:41
--- NOTE | 2020-05-10 19:46 | Diagnostic Imaging Report ---
INDICATION: Left thigh pain after fall. COMPARISON: Left tibia and fibula radiographs performed concurrently. TECHNIQUE: AP and lateral views of the left femur. FINDINGS: There is no acute fracture within the left femur. The hip and knee are grossly normal in alignment. Mild degenerative arthritis of the left hip. No soft tissue gas or radiopaque foreign body. No appreciable knee joint effusion. IMPRESSION: No fracture in the left femur. Dictated by: Dictated on workstation # [id number]
--- NOTE | 2020-05-10 19:47 | Diagnostic Imaging Report ---
INDICATION: Left leg pain after fall. COMPARISON: None available. TECHNIQUE: Two views of the left tibia and fibula. FINDINGS: No acute fracture or traumatic malalignment. Smooth periosteal thickening in the proximal tibia may be due to old injury. No radiopaque foreign body or soft tissue gas. IMPRESSION: No acute fracture in the left lower leg. Dictated by: Dictated on workstation # [id number]
[2020-05-10] MEDS ORDERED: ACETAMINOPHEN 500 MG TAB (TYLENOL) PO STA (19:58)
[2020-05-10 20:08] VITALS: BP 175/69
== END 2020-05-10 20:08 | disposition home or self-care (01) ==
LOC: EDUNIT# 18:44 → ER FS 18:47
DX: S70.12XA Contusion of left thigh, initial encounter (principal); S80.12XA Contusion of left lower leg, initial encounter; S00.03XA Contusion of scalp, initial encounter; I10 Essential (primary) hypertension; K21.9 Gastro-esophageal reflux disease without esophagitis; R40.2410 Glasgow coma scale score 13-15, unspecified time; Z82.49 Family history of ischemic heart disease and other diseases of the circulatory system; Z83.3 Family history of diabetes mellitus; Z88.8 Allergy status to other drugs, medicaments and biological substances; Z79.82 Long term (current) use of aspirin; W10.9XXA Fall (on) (from) unspecified stairs and steps, initial encounter
CPT/HCPCS: 73552; 73590

== ENCOUNTER 2020-05-12 19:05 | Emergency (ER) | payer OTHER ==
[~2020-05-12] VITALS: Ht 180.3 cm; Wt 150.9 kg
[2020-05-12 19:08] VITALS: BP 191/78
--- NOTE | 2020-05-12 19:10 | ED Upper Extremity ---
General Stated Complaint: RT THUMB LAC Source: patient History of Present Illness Date Seen by Provider: May 12, 2020 Time Seen by Provider: 19:10 Initial Comments 54-year-old male presenting with right thumb pain and bleeding. He was slicing potatoes with a mandolin slicer and cut his thumb. He was unable to get the bleeding controlled and stopped at home. He thinks his last tetanus shot was more than 10 years ago. He has no other cuts or injury from the accident tonight. He is right-hand dominant. Allergies and Home Medications Allergies Coded Allergies: cyclobenzaprine (Verified Allergy, Mild, ITCHING, 07/02/19) lisinopril (Verified Allergy, Mild, COUGH, 07/02/19) Home Medications Amlodipine Besylate 10 Mg Tablet, 10 MG PO DAILY, (Reported) Aspirin 81 Mg Tablet.dr, 81 MG PO DAILY Prescribed by: CARL WALKER on 12/02/181399 Carvedilol 25 Mg Tab, 25 MG PO BID, (Reported) Furosemide 40 Mg Tablet, 40 MG PO DAILY, (Reported) Meloxicam 15 Mg Tablet, 15 MG PO DAILY, (Reported) Multivitamin 1 Each Capsule, 1 EACH PO DAILY, (Reported) [place]-3 Fatty Acids/Fish Oil 1 Each Capsule, 1 EACH PO DAILY, (Reported) Omeprazole 40 Mg Capsule.dr, 40 MG PO DAILY, (Reported) Torsemide 20 Mg Tablet, 40 MG PO Q48H, (Reported) Patient Home Medication List Home Medication List Reviewed: Yes Review of Systems Constitutional: no symptoms reported EENTM: no symptoms reported Respiratory: no symptoms reported Cardiovascular: no symptoms reported Gastrointestinal: no symptoms reported Genitourinary: no symptoms reported Musculoskeletal: muscle pain (continued pain in his left leg from a fall on May 10) Skin: other (avulsion laceration to the tip of his right thumb) Past Sqrxhoz-Cyzomb-Elahat Hx Past Med/Social Hx: Reviewed Nursing Past Med/Soc Hx Patient Social History Type Used: Smokeless Tobacco 2nd Hand Smoke Exposure: No Recent Foreign Travel: No Contact w/Someone Who Travel: No Recent Hopitalizations: No Seasonal Allergies Seasonal Allergies: No Past Medical History Surgeries: Yes (3 neck surgeries, SHOULDER, ) Gallbladder, Vasectomy Respiratory: Yes Sleep Apnea Currently Using CPAP: Yes Currently Using BIPAP: No Cardiac: Yes (PASSED STRESS TEST 2018) Hypertension Neurological: No Sexually Transmitted Disease: No HIV/AIDS: No Genitourinary: No Gastrointestinal: Yes Gastroesophageal Reflux Musculoskeletal: Yes Arthritis Endocrine: No HEENT: No Loss of Vision: Denies Hearing Impairment: Denies Cancer: No Psychosocial: No Integumentary: No Blood Disorders: No Adverse Reaction/Blood Tranf: No (N/A) Family Medical History Cardiovascular disease 19 MOTHER Diabetes mellitus 19 FATHER Hypertension 19 FATHER 19 MOTHER G8 BROTHER Myocardial infarction 19 MOTHER Respiratory disorder 19 MOTHER Physical Exam Vital Signs Vital Signs - First Documented 05/12/20 19:08 Temp 37.1 Pulse 73 Resp 18 B/P (MAP) 191/78 (115) Pulse Ox 98 O2 Delivery Room Air Capillary Refill : Height, Weight, BMI Height: 5'11.00" Weight: 318lbs. 0.0oz. 144.371513mn; 44.13 BMI Method:Stated General Appearance: WD/WN, no apparent distress Cardiovascular: normal peripheral pulses, regular rate, rhythm Respiratory: chest non-tender, lungs clear Hand: Right, laceration (avulsion laceration to the tip of his right thumb) Neurologic/Tendon: normal sensation, normal motor functions, normal tendon functions Neurologic/Psychiatric: alert, normal mood/affect, oriented x 3 Skin: warm/dry Procedures/Interventions Wound Location: Upper Extremities (right thumb) Wound Length (cm): 1.4 Wound's Depth, Shape: superficial (avulsed) Wound Explored: clean Sterile Dressing Applied?: Yes Progress Wound cleaned with sterile water and surgical scrub. Then silver nitrate used to cauterize the wound. 5 minutes of direct steady pressure applied to get the bleeding controlled. Pt tolerated procedure well without any immediate complications. Progress/Results/Core Measures Results/Orders My Orders Orders - NILO GALLO MD Dipht,Pertuss(Acell),Tet Adult (Boostrix (05/12/20 19:45) Wound Dressing-Ed (05/12/20 19:32) Medications Given in ED Current Medications Medications Dose Ordered Sig/Jose Route Start Time Stop Time Status Last Admin Dose Admin Diphtheria/ Tetanus/Acell Pertussis 0.5 ml ONCE ONCE IM 05/12/20 19:45 05/12/20 19:46 DC 05/12/20 19:45 0.5 ML Vital Signs/I&O 05/12/20 19:08 Temp 37.1 Pulse 73 Resp 18 B/P (MAP) 191/78 (115) Pulse Ox 98 O2 Delivery Room Air Progress Progress Note : Progress Note approximately 1.4 cm avulsion laceration to the tip of his right thumb. Bleeding partially controlled with direct pressure. After cleaning the wound a silver nitrate cautery stick was used to cauterize the wound and control the bleeding. Then 5 minutes of steady pressure was applied. After this the patient had no further bleeding. The wound was dressed with a pressure dressing. He had a teta nus booster given. Counseled on follow-up and return precautions. Departure Impression Primary Impression: Avulsion of skin of right thumb without complication Qualified Codes: S61.001A - Unspecified open wound of right thumb without damage to nail, initial encounter Disposition: HOME, SELF-CARE Condition: Stable Departure-Patient Inst. Decision time for Depature: 19:35 Referrals: SELFTERRA MD (PCP/Family) Primary Care Physician Patient Instructions: SKIN AVULSION, Wound Care ED Add. Discharge Instructions: Keep wound dressed with pressure for next 24 hours. Then you may wash with soap and water and apply antibiotic ointment and dressing or band aid to help keep it covered and prevent it from hitting anything or getting infected. If you have bleeding start up again then apply pressure directly over the bleeding area for at least 5 minutes to get the bleeding to stop. Check back with clinic for continued problems/concerns. NILO GALLO MD May 12, 2020 19:10
[2020-05-12] MEDS ORDERED: TETANUS,DIPTH,PERTUSS P/F (BOOSTRIX) 0.5 ML VIAL IM ONE (19:45)
== END 2020-05-12 19:49 | disposition home or self-care (01) ==
LOC: EDUNIT# 19:05 → ER FS 19:07
DX: S61.011A Laceration without foreign body of right thumb without damage to nail, initial encounter (principal); I10 Essential (primary) hypertension; K21.9 Gastro-esophageal reflux disease without esophagitis; M79.18 Myalgia, other site; F17.220 Nicotine dependence, chewing tobacco, uncomplicated; Z23 Encounter for immunization; Z79.82 Long term (current) use of aspirin; Z79.899 Other long term (current) drug therapy; Z88.8 Allergy status to other drugs, medicaments and biological substances; Z83.3 Family history of diabetes mellitus; W27.4XXA Contact with kitchen utensil, initial encounter; Y92.009 Unspecified place in unspecified non-institutional (private) residence as the place of occurrence of the external cause
CPT/HCPCS: 90715; 99282

== ENCOUNTER → 2021-08-24 | Outpatient (CLI) | payer BC ==
[~2021-08-24] MED LIST changes: -OMEP40CA27 PO; +OMEP40CA6 PO
== END ==
LOC: CARD 09:00
PROVIDERS: ATTEND Internal Medicine Cardiovascular Disease
DX: I49.9 Cardiac arrhythmia, unspecified (principal)
CPT/HCPCS: 93225; 93226

== ENCOUNTER → 2021-09-29 | Outpatient (CLI) | payer BC | LOC: CARD 10:30 | PROVIDERS: ATTEND Internal Medicine Cardiovascular Disease | DX: I11.9 Hypertensive heart disease without heart failure (principal); I25.10 Atherosclerotic heart disease of native coronary artery without angina pectoris; I48.0 Paroxysmal atrial fibrillation | CPT/HCPCS: 93306 ==

== ENCOUNTER 2022-02-24 01:37 | Inpatient (IN) | payer BC ==
[~2022-02-24] VITALS: Ht 177.8 cm; Wt 161.0 kg
[2022-02-24] MEDS ORDERED: methylPREDNISolone 125 MG (Solu-MEDROL) VIAL IM ONE (02:15)
[2022-02-24] MEDS ORDERED: RT-ALBUTEROL/IPRATROPIUM 3 ML (DUONEB) VIAL INH ONE (02:15)
[2022-02-24] MEDS ORDERED: NS IV 1000 ML 1,000 ML IV SCH (02:15)
[2022-02-24 02:22] LABS: BASOPHILS # (AUTO) 0.1 10^3/uL (0.0-0.1); BASOPHILS % (AUTO) 0 % (0-10); EOSINOPHILS # (AUTO) 0.1 10^3/uL (0.0-0.3); EOSINOPHILS % (AUTO) 0 % (0-10); HEMATOCRIT 38 % (40-54); HEMOGLOBIN 12.4 g/dL (13.3-17.7); LYMPHOCYTES # (AUTO) 1.4 10^3/uL (1.0-4.0); LYMPHOCYTES % (AUTO) 5 % (12-44); MEAN CORPUSCULAR HEMOGLOBIN 27 pg (25-34); MEAN CORPUSCULAR HGB CONC 33 g/dL (32-36); MEAN CORPUSCULAR VOLUME 80 fL (80-99); MONOCYTES # (AUTO) 1.1 10^3/uL (0.0-1.0); MONOCYTES % (AUTO) 4 % (0-12); NEUTROPHILS % (AUTO) 90 % (42-75); PLATELET COUNT 260 10^3/uL (130-400); WHITE BLOOD COUNT 27.8 10^3/uL (4.3-11.0)
[2022-02-24 02:42] LABS: ABG PCO2 37 MMHG (35-45); ABG PH 7.49 (7.37-7.43); ABG PO2 59 MMHG (79-93)
[2022-02-24 02:43] LABS: ABG BASE EXCESS 4.7 MMOL/L (-2.5-2.5); ABG OXYGEN SATURATION 92 % (94-100); ABG TCO2 29.3 MMOL/L (21.0-31.0); ALLENS TEST YES-POS; INSPIRED O2 ROOM AIR; PATIENT TEMP 37.8; VENTILATOR NO
[2022-02-24 02:45] LABS: CARBON DIOXIDE 25 MMOL/L (21-32); CHLORIDE 96 MMOL/L (98-107); POTASSIUM 4.1 MMOL/L (3.6-5.0); SODIUM 135 MMOL/L (135-145)
[2022-02-24] MEDS ORDERED: PIPERACILLIN SODIUM/TAZOBACTAM 4.5 GM in NS (IVPB) 100 ML IV ONE (02:45)
[2022-02-24] MEDS ORDERED: VANCOMYCIN INJECTION 1,000 MG in NS (IVPB) 250 ML IV ONE (02:45)
[2022-02-24 02:46] LABS: ALANINE AMINOTRANSFERASE 54 U/L (0-55); ALBUMIN 4.3 GM/DL (3.2-4.5); ALKALINE PHOSPHATASE 77 U/L (40-136); BILIRUBIN,TOTAL 0.6 MG/DL (0.1-1.0); BUN/CREATININE RATIO 11; CALCIUM 10.2 MG/DL (8.5-10.1); CREATININE SERUM 1.58 MG/DL (0.60-1.30); GFR ESTIMATED 51; GLUCOSE 174 MG/DL (70-105); TOTAL PROTEIN 7.5 GM/DL (6.4-8.2)
[2022-02-24] MEDS ORDERED: CATHETER FLUSH 10 ML SYR IV PRN (03:00)
[2022-02-24] MEDS ORDERED: IOHEXOL 350 MG/ML 100 ML (OMNIPAQUE 350) VIAL IV ONE (03:00)
[2022-02-24] MEDS ORDERED: HOLD METFORMIN - RECEIVED CONTRAST 20 ML VIAL IV SCH (03:00)
[2022-02-24] MEDS ORDERED: NS 100 ML (IVPB) BAG IV ONE (03:00)
[2022-02-24 03:08] LABS: BAND NEUTROPHILS 24 %; EOSINOPHILS % (MANUAL) 1 %; LYMPHOCYTES % (MANUAL) 3 %; METAMYELOCYTES % 2 %; MONOCYTES % (MANUAL) 1 %; NEUTROPHILS % (MANUAL) 69 %; PLATELET ESTIMATE NORMAL; RBC MORPH NORMAL
[2022-02-24] MEDS ORDERED: RIVA20TA PO (03:25)
[2022-02-24] MEDS ORDERED: DRON400T6 PO (03:25)
[2022-02-24] MEDS ORDERED: LOSA25TA41 PO (03:25)
--- NOTE | 2022-02-24 03:31 | ED General ---
General Chief Complaint: Respiratory Problems Stated Complaint: SOB/BACK PAIN Nursing Triage Note: patient states since last night around 1999 started having shortness of breath, mid-sternum back pain and chills. states took a home COVID test it was negative. patient states fatigued went to bed using CPAP. Family states patient calling out in pain and very short of breath even on CPAP machine. Source of Information: Patient, Family Exam Limitations: No Limitations History of Present Illness Date Seen by Provider: Feb 24, 2022 Time Seen by Provider: 01:38 Initial Comments Patient is a 56-year-old male with history of sleep apnea who presents with cute onset shortness of breath and mid thoracic back pain, body aches and rigors starting approximately 3 hours prior to ED arrival. Patient was using his BiPAP at time symptoms began. Took a home COVID test which was reportedly negative prior to coming to the emergency department. ED arrival, the patient is generally weak, acutely ill-appearing with respiratory distress and anxiety. He is breathing rapid shallow respirations 40 to 45 breaths a minute with O2 saturation in the upper 80s. He currently denies chest pain, nausea or vomiting. History is limited due to clinical condition. Additional history obtained from the patient's family members. Timing/Duration: 1-3 Hours Severity: Severe Modifying Factors: improves with Other Associated Systoms: Other Allergies and Home Medications Allergies Coded Allergies: cyclobenzaprine (Verified Allergy, Mild, ITCHING, 07/02/19) lisinopril (Verified Allergy, Mild, COUGH, 07/02/19) Patient Home Medication List Home Medication List Reviewed: Yes Amlodipine Besylate (Amlodipine Besylate) 10 Mg Tablet, 10 MG PO DAILY, (Reported) Entered as Reported by: KP CASTRO on 12/02/18 1345 Aspirin (Aspir 81) 81 Mg Tablet.dr, 81 MG PO DAILY Prescribed by: CARL WALKER on 12/02/18 1400 Carvedilol (Coreg) 25 Mg Tab, 25 MG PO BID, (Reported) Entered as Reported by: KP CASTRO on 12/02/18 1347 Dronedarone HCl (Multaq) 400 Mg Tablet, 400 MG PO BID, (Reported) Entered as Reported by: SUHA RIOS on 02/24/22 0325 Last Action: Edited Furosemide (Furosemide) 40 Mg Tablet, 40 MG PO DAILY, (Reported) Entered as Reported by: KP CASTRO on 12/02/18 1347 Losartan Potassium (Losartan Potassium) 25 Mg Tablet, 25 MG PO DAILY, (Reported) Entered as Reported by: SUHA RIOS on 02/24/22324 Last Action: Edited Meloxicam (Meloxicam) 15 Mg Tablet, 15 MG PO DAILY, (Reported) Entered as Reported by: KP CASTRO on 12/02/18 1341 Multivitamin (Multivitamins) 1 Each Capsule, 1 EACH PO DAILY, (Reported) Entered as Reported by: LAMONTE WHITTAKER on 07/02/19 155 [place]-3 Fatty Acids/Fish Oil (Fish Oil 1,200 mg Softgel) 1 Each Capsule, 1 EACH PO DAILY, (Reported) Entered as Reported by: LAMONTE WHITTAKER on 07/02/19 155 Omeprazole (Omeprazole) 40 Mg Capsule.dr, 40 MG PO DAILY, (Reported) Entered as Reported by: KP CASTRO on 12/02/18 134 Rivaroxaban (Xarelto) 20 Mg Tablet, 20 MG PO DAILY, (Reported) Entered as Reported by: SUHA RIOS on 02/24/22324 Last Action: Edited Torsemide (Torsemide) 20 Mg Tablet, 40 MG PO Q48H, (Reported) Entered as Reported by: LAMONTE WHITTAKER on 07/02/191551 Review of Systems Review of Systems Constitutional: see HPI EENTM: see HPI Respiratory: see HPI Cardiovascular: see HPI Gastrointestinal: see HPI Genitourinary: see HPI Musculoskeletal: see HPI Skin: see HPI Psychiatric/Neurological: See HPI Hematologic/Lymphatic: See HPI Immunological/Allergic: see HPI Past [id number]-Vsrfod-Vcynld Hx Patient Social History Tobacco Use?: Yes Use of E-Cig and/or Vaping dev: No Substance use?: No Alcohol Use?: No Immunizations Up To Date Tetanus Booster (TDap): More than 5yrs Influenza Vaccine Up-to-Date: No; Not Current Seasonal Allergies Seasonal Allergies: No Past Medical History Surgeries: Yes (3 neck surgeries, SHOULDER, ) Gallbladder, Vasectomy Respiratory: Yes Sleep Apnea Currently Using CPAP: Yes Currently Using BIPAP: No Cardiac: Yes (PASSED STRESS TEST 2019) Hypertension Neurological: No Sexually Transmitted Disease: No HIV/AIDS: No Genitourinary: No Gastrointestinal: Yes Gastroesophageal Reflux Musculoskeletal: Yes Arthritis Endocrine: No HEENT: No Loss of Vision: Denies Hearing Impairment: Denies Cancer: No Psychosocial: No Integumentary: No Blood Disorders: No Adverse Reaction/Blood Tranf: No (N/A) Family Medical History Cardiovascular disease 19 MOTHER Diabetes mellitus 19 FATHER Hypertension 19 FATHER 19 MOTHER G8 BROTHER Myocardial infarction 19 MOTHER Respiratory disorder 19 MOTHER Physical Exam-Suspected Sepsis Physical Exam Vital Signs Vital Signs - First Documented 02/24/22 02/24/22 01:45 03:00 Temp 37.8 Pulse 97 Resp 50 B/P (MAP) 135/71 (92) Pulse Ox 96 O2 Delivery Room Air O2 Flow Rate 2.00 FiO2 90 Capillary Refill : Less Than 3 Seconds Blood Pressure Mean: 92 Height, Weight, BMI Height: 5'11.00" Weight: 318lbs. 0.0oz. [id number]; 46.00 BMI Method:Stated General Appearance: Moderate Distress, Other (Acutely ill, anxious, moderate respiratory distress) Eyes: Bilateral Eye Normal Inspection HEENT: PERRL/EOMI, TMs Normal, Moist Mucous Membranes Neck: Non Tender, Supple Respiratory: Lungs Clear, Decreased Breath Sounds, Respiratory Distress, Other (Tachypnea, respiratory rate in 40s, shallow respirations with pursed lip breathing. Speaks less than 5 word sentences.) Cardiovascular: Regular Rate, Rhythm Gastrointestinal: Non Tender, Soft Back: No CVA Tenderness Neurologic/Psychiatric: Alert Focused Exam Sepsis Stage: Sepsis Possible Source: Pulmonary Lactate Level 02/24/22 01:57: Lactic Acid Level 2.40*H Time of Focused Exam: 01:40 Respiratory: Decreased Breath Sounds, Respiratory Distress Cardiovascular: Regular Rate, Rhythm Capillary Refill: Less Than 3 Seconds Skin: normal color Lactic Acid Level Laboratory Tests Test 02/24/22 01:57 Lactic Acid Level 2.40 MMOL/L (0.50-2.00) *H Within 3hrs of presentation: Admin fluids, Admin ABX, Lactate level Progress/Results/Core Measures Suspected Sepsis SIRS Temperature: Pulse: 97 Respiratory Rate: 50 Laboratory Tests 02/24/22 01:57: White Blood Count 27.8H Blood Pressure 135 /71 Mean: 92 02/24/22 01:57: Lactic Acid Level 2.40*H Laboratory Tests 02/24/22 01:57: Creatinine 1.58H, Platelet Count 260, Total Bilirubin 0.6 Results/Orders Lab Results Laboratory Tests Test 02/24/22 01:57 02/24/22 02:28 02/24/22 02:44 02/24/22 03:30 Range/Units White Blood Count 27.8 H 4.3-11.0 10^3/uL Red Blood Count 4.67 4.30-5.52 10^6/uL Hemoglobin 12.4 L 13.3-17.7 g/dL Hematocrit 38 L 40-54 % Mean Corpuscular Volume 80 80-99 fL Mean Corpuscular Hemoglobin 27 25-34 pg Mean Corpuscular Hemoglobin Concent 33 32-36 g/dL Red Cell Distribution Width 14.5 10.0-14.5 % Platelet Count 260 130-400 10^3/uL Mean Platelet Volume 10.0 9.0-12.2 fL Immature Granulocyte % (Auto) 1 % Neutrophils (%) (Auto) 90 H 42-75 % Lymphocytes (%) (Auto) 5 L 12-44 % Monocytes (%) (Auto) 4 0-12 % Eosinophils (%) (Auto) 0 0-10 % Basophils (%) (Auto) 0 0-10 % Neutrophils # (Auto) 25.0 H 1.8-7.8 10^3/uL Lymphocytes # (Auto) 1.4 1.0-4.0 10^3/uL Monocytes # (Auto) 1.1 H 0.0-1.0 10^3/uL Eosinophils # (Auto) 0.1 0.0-0.3 10^3/uL Basophils # (Auto) 0.1 0.0-0.1 10^3/uL Immature Granulocyte # (Auto) 0.3 H 0.0-0.1 10^3/uL Neutrophils % (Manual) 69 % Lymphocytes % (Manual) 3 % Monocytes % (Manual) 1 % Eosinophils % (Manual) 1 % Metamyelocytes % 2 % Band Neutrophils 24 % Platelet Estimate NORMAL Blood Morphology Comment NORMAL D-Dimer 0.28 0.00-0.49 UG/ML Sodium Level 135 135-145 MMOL/L Potassium Level 4.1 3.6-5.0 MMOL/L Chloride Level 96 L 98-107 MMOL/L Carbon Dioxide Level 25 21-32 MMOL/L Anion Gap 14 5-14 MMOL/L Blood Urea Nitrogen 17 7-18 MG/DL Creatinine 1.58 H 0.60-1.30 MG/DL Estimat Glomerular Filtration Rate 51 BUN/Creatinine Ratio 11 Glucose Level 174 H 70-105 MG/DL Lactic Acid Level 2.40 *H 0.50-2.00 MMOL/L Calcium Level 10.2 H 8.5-10.1 MG/DL Corrected Calcium 10.0 8.5-10.1 MG/DL Total Bilirubin 0.6 0.1-1.0 MG/DL Aspartate Amino Transf (AST/SGOT) 45 H 5-34 U/L Alanine Aminotransferase (ALT/SGPT) 54 0-55 U/L Alkaline Phosphatase 77 40-136 U/L Troponin I < 0.30 <0.30 NG/ML Pro-B-Type Natriuretic Peptide 541.5 H <125.0 PG/ML Total Protein 7.5 6.4-8.2 GM/DL Albumin 4.3 3.2-4.5 GM/DL Blood Gas Puncture Site LT. RADIAL Blood Gas Patient Temperature 37.8 Arterial Blood pH 7.49 H 7.37-7.43 Arterial Blood Partial Pressure CO2 37 35-45 MMHG Arterial Blood Partial Pressure O2 59 L 79-93 MMHG Arterial Blood HCO3 28 H 23-27 MMOL/L Arterial Blood Total CO2 29.3 21.0-31.0 MMOL/L Arterial Blood Oxygen Saturation 92 L 94-100 % Arterial Blood Base Excess 4.7 H -2.5-2.5 MMOL/L Suresh Test YES-POS Blood Gas Ventilator Setting NO Blood Gas Inspired Oxygen ROOM AIR Influenza Type A (RT-PCR) Not Detected Not Detecte Influenza Type B (RT-PCR) Not Detected Not Detecte SARS-CoV-2 RNA (RT-PCR) Not Detected Not Detecte My Orders Orders - GLORIA CHERRY DO Cbc With Automated Diff (02/24/22 02:06) Comprehensive Metabolic Panel (02/24/22 02:06) Chest 1 View Ap/Pa Only (02/24/22 02:06) Troponin I Fs (02/24/22 02:06) Probnp Fs (02/24/22 02:06) Ekg Tracing (02/24/22 02:06) Lactic Acid Analyzer (02/24/22 02:06) Fibrin Degradation Products (02/24/22 02:06) Blood Culture (02/24/22 02:06) Covid 19 Inhouse Test (02/24/22 02:06) Influenza A & B Antigens (02/24/22 02:06) Influenza A And B By Pcr (02/24/22 02:06) Isolation Central Supply Req (02/24/22 02:06) Ns Iv 1000 Ml (Sodium Chloride 0.9%) (02/24/22 02:15) Ua Culture If Indicated (02/24/22 02:06) Albuterol/Ipra Inhalation Soln (Duoneb I (02/24/22 02:15) Svn Small Volume Nebulizer (02/24/22 02:06) Methylprednisolone Sod Succ (Solu-Medrol (02/24/22 02:15) Manual Differential (02/24/22 01:57) Arterial Blood Gas (02/24/22 02:28) Piperacillin Sodium/Tazobactam (Zosyn Vi (02/24/22 02:45) Ns Iv 1000 Ml (Sodium Chloride 0.9%) (02/24/22 02:45) Vancomycin Injection (Vancomycin Injecti (02/24/22 02:45) Ct Angio Chest W (02/24/22 02:45) Iohexol Injection (Omnipaque 350 Mg/Ml 1 (02/24/22 03:00) Received Contrast (Hold Metformin- Contr (02/24/22 03:00) Sodium Chloride Flush (Catheter Flush Sy (02/24/22 03:00) Ns (Ivpb) (Sodium Chloride 0.9% Ivpb Bag (02/24/22 03:00) Blood Culture (02/24/22 03:42) Medications Given in ED Current Medications Medications Dose Ordered Sig/Jose Route Start Time Stop Time Status Last Admin Dose Admin Albuterol/ Ipratropium 5 ml ONCE ONCE INH 02/24/22 02:15 02/24/22 02:16 DC 02/24/22 02:35 5 ML Iohexol 100 ml ONCE ONCE IV 02/24/22 03:00 02/24/22 03:01 DC 02/24/22 03:36 100 ML Methylprednisolone Sodium Succinate 125 mg ONCE ONCE IM 02/24/22 02:15 02/24/22 02:16 DC 02/24/22 02:36 125 MG Piperacillin Sod/ Tazobactam Sod 4.5 gm/Sodium Chloride 100 ml @ 200 mls/hr ONCE ONCE IV 02/24/22 02:45 02/24/22 03:14 DC 02/24/22 03:08 200 MLS/HR Vital Signs/I&O 02/24/22 02/24/22 02/24/22 01:45 02:55 03:00 Temp 37.8 Pulse 97 Resp 50 B/P (MAP) 135/71 (92) Pulse Ox 96 94 O2 Delivery Room Air Room Air Nasal Cannula O2 Flow Rate 2.00 FiO2 90 Capillary Refill : Less Than 3 Seconds Blood Pressure Mean: 92 Departure Communication (Admissions) EKG: Sinus rhythm, rate 93, no acute ST-T wave changes, interpretation limited due to artifact Chest x-ray: No acute cardiopulmonary disease on preliminary ED review CT angio chest: Pending Patient with acute respiratory distress secondary to respiratory tract infection and sepsis. Influenza and COVID-negative. Patient given aggressive nebulized breathing treatments, steroids, antibiotics and IV fluids with improved breathing. Oxygen saturation post breathing treatment is 99% with respiratory rate improved to 20. Blood pressure remains stable. Dr. Zaidi agrees to admit to ICU. On-call eICU contacted and case reviewed at 03:45. Impression Primary Impression: Respiratory distress, acute Additional Impression: Severe sepsis Disposition: ADMITTED INPATIENT Condition: Critical Admissions Decision to Admit Reason: Admit from ER (General) Decision to Admit/Date: Feb 24, 2022 Time/Decision to Admit Time: 03:30 Departure-Patient Inst. Referrals: TERRA LEONARD MD (PCP/Family) Primary Care Physician GLORIA CHERRY DO Feb 24, 2022 03:31
[2022-02-24] MEDS: NS IV 1000 ML 1,000 ML IV SCH ×5 (03:40→17:13)
[2022-02-24 03:43] LABS: BILIRUBIN,URINE NEGATIVE (NEGATIVE); CLARITY,URINE CLEAR; GLUCOSE, URINE (UA) NEGATIVE (NEGATIVE); KETONES,URINE NEGATIVE (NEGATIVE); LEUKOCYTE ESTERASE ,URINE NEGATIVE (NEGATIVE); NITRITE,URINE NEGATIVE (NEGATIVE); PROTEIN,URINE NEGATIVE (NEGATIVE)
[2022-02-24 03:52] LABS: BACTERIA,URINE NEGATIVE /HPF; COLOR,URINE DK YELLOW; RBC,URINE RARE /HPF; WBC,URINE RARE /HPF
[2022-02-24 03:53] LABS: SQUAMOUS EPITHELIAL CELL,UR RARE /HPF
[2022-02-24] MEDS ORDERED: PRAV20TA3 PO (04:04)
[2022-02-24] MEDS ORDERED: ONDANSETRON 4 MG/2 ML (SDV) Z0FRAN IV PRN (05:30)
[2022-02-24] MEDS ORDERED: NS IV 500 ML 500 ML IV PRN (05:30)
[2022-02-24] MEDS ORDERED: ANTACID SUSP 30 ML UDC (MYLANTA) PO PRN (05:30)
[2022-02-24] MEDS ORDERED: BISACODYL 10 MG SUPP (DULCOLAX) PR PRN (05:30)
[2022-02-24] MEDS ORDERED: LORazepam INJ 2 MG/ML (ATIVAN) VIAL IVP PRN (05:30)
[2022-02-24] MEDS ORDERED: polyethylene glycoL POWDER 17 GM (MIRALAX) PACK PO PRN (05:30)
[2022-02-24] MEDS ORDERED: ONDANSETRON 4 MG (ZOFRAN) ORAL DISSOLVE TAB PO PRN (05:30)
[2022-02-24] MEDS ORDERED: diphenhydrAMINE 25 MG TAB (BENADRYL) PO PRN (05:30)
[2022-02-24] MEDS ORDERED: DexMEDEtomidine 250 ML DRIP 250 ML IV SCH (05:30)
[2022-02-24] MEDS ORDERED: ACETAMINOPHEN 325 MG TABLET PO PRN (05:30)
[2022-02-24] MEDS ORDERED: MELATONIN 3 MG TABLET PO PRN (05:30)
[2022-02-24] MEDS ORDERED: LORazepam 0.5 MG (ATIVAN) TABLET PO PRN (05:30)
[2022-02-24] MEDS ORDERED: diphenhydrAMINE 50 MG/ML INJ (BENADRYL) IVP PRN (05:30)
[2022-02-24] MEDS ORDERED: morphine INJ 4 MG/ML 1 ML (VIAL/SYRINGE) IV PRN (05:30)
[2022-02-24] MEDS: RT-ALBUTEROL/IPRATROPIUM 3 ML (DUONEB) VIAL INH SCH ×5 (06:07→22:36)
--- NOTE | 2022-02-24 07:11 | Diagnostic Imaging Report ---
PROCEDURE: CT angiography of the chest with contrast. TECHNIQUE: Multiple contiguous axial images were obtained through the chest after uneventful bolus administration of intravenous contrast. 3D reconstructed CTA MIP acquisitions were also performed. Auto Exposure Controls were utilized during the CT exam to meet ALARA standards for radiation dose reduction. INDICATION: Chest pain, shortness of air COMPARISON: Radiograph dated December 01, 2018 FINDINGS: An enlarged right paratracheal lymph node is present measuring 1.5 cm in short dimension. Bilateral gynecomastia. No aneurysmal dilatation of thoracic aorta. The heart is within normal limits in size. No significant pericardial effusion. No pleural effusion. No pneumothorax. The lungs are clear. No significant filling defect within the central or segmental pulmonary arteries. Fatty infiltration of the liver. Cholecystectomy. The minimally visualized upper abdomen is otherwise unremarkable. Scattered osseous degenerative changes without acute osseous abnormality. IMPRESSION: No significant pulmonary embolus. No acute abnormality within the chest. Mild right paratracheal adenopathy, of uncertain significance or etiology. This could be reactive in nature, though infiltrative process not excluded. Agree with preliminary interpretation. Dictated by: Dictated on workstation # [id number]
[2022-02-24] MEDS: KCL 20 MEQ TAB (K-DUR) PO SCH (07:16)
[2022-02-24] MEDS: MAGNESIUM 1 GM/100 ML IVPB 100 ML IV SCH (07:16)
[2022-02-24] MEDS: POTASSIUM CL 10MEQ/50ML IVPB 50 ML IV SCH (07:16)
[2022-02-24] MEDS: cefTRIAXone 1 GM PRE-MIX 50 ML IV SCH (07:28)
--- NOTE | 2022-02-24 08:22 | Diagnostic Imaging Report ---
INDICATION: Chest pain, shortness of breath. FINDINGS: The lungs are clear. The heart size within normal limits. No failure, effusion or pneumothorax. IMPRESSION: No acute appearing abnormality. Dictated by: Dictated on workstation # [id number]
[2022-02-24] MEDS: methylPREDNISolone 40 MG/ML (Solu-MEDROL) VIAL IV SCH ×3 (08:50→21:04)
[2022-02-24] MEDS: DOXYCYCLINE INJECTION 100 MG in NS (IVPB) 100 ML IV SCH ×2 (08:50→21:05)
[2022-02-24] MEDS: DOCUSATE SODIUM 100 MG (COLACE) CAP PO SCH ×2 (08:50→21:05)
[2022-02-24 09:33] LABS: BASOPHILS # (AUTO) 0.1 10^3/uL (0.0-0.1); BASOPHILS % (AUTO) 0 % (0-10); EOSINOPHILS % (AUTO) 0 % (0-10); HEMATOCRIT 38 % (40-54); HEMOGLOBIN 11.7 g/dL (13.3-17.7); LYMPHOCYTES % (AUTO) 3 % (12-44); MEAN CORPUSCULAR HEMOGLOBIN 27 pg (25-34); MEAN CORPUSCULAR HGB CONC 31 g/dL (32-36); MEAN CORPUSCULAR VOLUME 85 fL (80-99); MEAN PLATELET VOLUME 10.3 fL (9.0-12.2); MONOCYTES # (AUTO) 0.5 10^3/uL (0.0-1.0); MONOCYTES % (AUTO) 2 % (0-12); NEUTROPHILS # (AUTO) 30.3 10^3/uL (1.8-7.8); NEUTROPHILS % (AUTO) 94 % (42-75); PLATELET COUNT 183 10^3/uL (130-400)
[2022-02-24 09:38] LABS: WHITE BLOOD COUNT 32.4 10^3/uL (4.3-11.0)
[2022-02-24 09:43] LABS: ALBUMIN 3.9 GM/DL (3.2-4.5); POTASSIUM 4.3 MMOL/L (3.6-5.0)
[2022-02-24 09:45] LABS: CALCIUM 9.1 MG/DL (8.5-10.1)
[2022-02-24 09:46] LABS: TOTAL PROTEIN 7.1 GM/DL (6.4-8.2)
[2022-02-24 09:47] LABS: BILIRUBIN,TOTAL 0.6 MG/DL (0.1-1.0)
[2022-02-24 09:49] LABS: CREATININE SERUM 1.65 MG/DL (0.60-1.30)
--- NOTE | 2022-02-24 10:22 | Consultation-Cardiology ---
HPI-Cardiology Cardiology Consultation Date of Consultation 02/24/22 Date of Admission Time Seen by Provider: 10:18 Indication: Paroxysmal atrial fibrillation HPI 56 years old gentleman with history of paroxysmal atrial fibrillation, woke up last night with fever and chills and rigors in addition to shortness of breath. Came into the emergency room and noted to be septic and in respiratory failure. He was admitted to ICU and started on antibiotics. On my evaluation, he was feeling better, sitting up and eating breakfast on nasal cannula. Denied any chest pain, admit having the fever and chills did not have any cough or sputum. No urinary symptoms. Has been working with [facility] and has been having pedal edema. Home Medications & Allergies Allergies: Coded Allergies: cyclobenzaprine (Verified Allergy, Mild, ITCHING, 07/02/19) lisinopril (Verified Allergy, Mild, COUGH, 07/02/19) Home Medication List Reviewed: Yes YQI-Coykax-Leumoz Hx Patient Social History Marital Status: Employed/Student: employed Type Used: Smokeless Tobacco 2nd Hand Smoke Exposure: No Recent Hopitalizations: No Have you traveled recently?: No Alcohol Use?: Yes Immunizations Up To Date Tetanus Booster (TDap): More than 5yrs Date of Influenza Vaccine: May 12, 2020 Past Medical History Discussed below Family Medical History Family History: Cardiovascular disease 19 MOTHER Diabetes mellitus 19 FATHER Hypertension 19 FATHER 19 MOTHER G8 BROTHER Myocardial infarction 19 MOTHER Respiratory disorder 19 MOTHER Review of Systems-General Review of Systems Constitutional: see HPI, chills, fever, malaise EENTM: see HPI Respiratory: see HPI; No cough, No dyspnea on exertion, No hemoptysis, No orthopnea, No phlegm, No short of breath, No stridor, No wheezing, No other Cardiovascular: see HPI; No chest pain; edema; No Hx of Intervention, No palpitations, No syncope, No vascular heart diseas, No other Gastrointestinal: no symptoms reported, see HPI Genitourinary: no symptoms reported, see HPI Musculoskeletal: no symptoms reported, see HPI Skin: no symptoms reported, see HPI Psychiatric/Neurological: No Symptoms Reported, See HPI Reviewed Test Results Reviewed Test Results Lab Laboratory Tests Test 02/24/22 01:57 02/24/22 02:28 02/24/22 02:44 02/24/22 03:30 Range/Units White Blood Count 27.8 H 4.3-11.0 10^3/uL Red Blood Count 4.67 4.30-5.52 10^6/uL Hemoglobin 12.4 L 13.3-17.7 g/dL Hematocrit 38 L 40-54 % Mean Corpuscular Volume 80 80-99 fL Mean Corpuscular Hemoglobin 27 25-34 pg Mean Corpuscular Hemoglobin Concent 33 32-36 g/dL Red Cell Distribution Width 14.5 10.0-14.5 % Platelet Count 260 130-400 10^3/uL Mean Platelet Volume 10.0 9.0-12.2 fL Immature Granulocyte % (Auto) 1 % Neutrophils (%) (Auto) 90 H 42-75 % Lymphocytes (%) (Auto) 5 L 12-44 % Monocytes (%) (Auto) 4 0-12 % Eosinophils (%) (Auto) 0 0-10 % Basophils (%) (Auto) 0 0-10 % Neutrophils # (Auto) 25.0 H 1.8-7.8 10^3/uL Lymphocytes # (Auto) 1.4 1.0-4.0 10^3/uL Monocytes # (Auto) 1.1 H 0.0-1.0 10^3/uL Eosinophils # (Auto) 0.1 0.0-0.3 10^3/uL Basophils # (Auto) 0.1 0.0-0.1 10^3/uL Immature Granulocyte # (Auto) 0.3 H 0.0-0.1 10^3/uL Neutrophils % (Manual) 69 % Lymphocytes % (Manual) 3 % Monocytes % (Manual) 1 % Eosinophils % (Manual) 1 % Metamyelocytes % 2 % Band Neutrophils 24 % Platelet Estimate NORMAL Blood Morphology Comment NORMAL D-Dimer 0.28 0.00-0.49 UG/ML Sodium Level 135 135-145 MMOL/L Potassium Level 4.1 3.6-5.0 MMOL/L Chloride Level 96 L 98-107 MMOL/L Carbon Dioxide Level 25 21-32 MMOL/L Anion Gap 14 5-14 MMOL/L Blood Urea Nitrogen 17 7-18 MG/DL Creatinine 1.58 H 0.60-1.30 MG/DL Estimat Glomerular Filtration Rate 51 BUN/Creatinine Ratio 11 Glucose Level 174 H 70-105 MG/DL Lactic Acid Level 2.40 *H 0.50-2.00 MMOL/L Calcium Level 10.2 H 8.5-10.1 MG/DL Corrected Calcium 10.0 8.5-10.1 MG/DL Total Bilirubin 0.6 0.1-1.0 MG/DL Aspartate Amino Transf (AST/SGOT) 45 H 5-34 U/L Alanine Aminotransferase (ALT/SGPT) 54 0-55 U/L Alkaline Phosphatase 77 40-136 U/L Troponin I < 0.30 <0.30 NG/ML Pro-B-Type Natriuretic Peptide 541.5 H <125.0 PG/ML Total Protein 7.5 6.4-8.2 GM/DL Albumin 4.3 3.2-4.5 GM/DL Blood Gas Puncture Site LT. RADIAL Blood Gas Patient Temperature 37.8 Arterial Blood pH 7.49 H 7.37-7.43 Arterial Blood Partial Pressure CO2 37 35-45 MMHG Arterial Blood Partial Pressure O2 59 L 79-93 MMHG Arterial Blood HCO3 28 H 23-27 MMOL/L Arterial Blood Total CO2 29.3 21.0-31.0 MMOL/L Arterial Blood Oxygen Saturation 92 L 94-100 % Arterial Blood Base Excess 4.7 H -2.5-2.5 MMOL/L Suresh Test YES-POS Blood Gas Ventilator Setting NO Blood Gas Inspired Oxygen ROOM AIR Influenza Type A (RT-PCR) Not Detected Not Detecte Influenza Type B (RT-PCR) Not Detected Not Detecte SARS-CoV-2 RNA (RT-PCR) Not Detected Not Detecte Urine Color DK YELLOW Urine Clarity CLEAR Urine pH 6.0 5-9 Urine Specific [place] <=1.005 1.016-1.022 Urine Protein NEGATIVE NEGATIVE Urine Glucose (UA) NEGATIVE NEGATIVE Urine Ketones NEGATIVE NEGATIVE Urine Nitrite NEGATIVE NEGATIVE Urine Bilirubin NEGATIVE NEGATIVE Urine Urobilinogen 1.0 < = 1.0 MG/DL Urine Leukocyte Esterase NEGATIVE NEGATIVE Urine RBC (Auto) NEGATIVE NEGATIVE Urine RBC RARE /HPF Urine WBC RARE /HPF Urine Squamous Epithelial Cells RARE /HPF Urine Crystals NONE /LPF Urine Bacteria NEGATIVE /HPF Urine Casts NONE /LPF Urine Mucus NEGATIVE /LPF Urine Culture Indicated NO Test 02/24/22 03:40 02/24/22 06:11 02/24/22 09:24 Range/Units Lactic Acid Level 2.28 *H 1.27 0.50-2.00 MMOL/L White Blood Count 32.4 *H 4.3-11.0 10^3/uL Red Blood Count 4.39 4.30-5.52 10^6/uL Hemoglobin 11.7 L 13.3-17.7 g/dL Hematocrit 38 L 40-54 % Mean Corpuscular Volume 85 80-99 fL Mean Corpuscular Hemoglobin 27 25-34 pg Mean Corpuscular Hemoglobin Concent 31 L 32-36 g/dL Red Cell Distribution Width 14.5 10.0-14.5 % Platelet Count 183 130-400 10^3/uL Mean Platelet Volume 10.3 9.0-12.2 fL Immature Granulocyte % (Auto) 2 % Neutrophils (%) (Auto) 94 H 42-75 % Lymphocytes (%) (Auto) 3 L 12-44 % Monocytes (%) (Auto) 2 0-12 % Eosinophils (%) (Auto) 0 0-10 % Basophils (%) (Auto) 0 0-10 % Neutrophils # (Auto) 30.3 H 1.8-7.8 10^3/uL Lymphocytes # (Auto) 1.0 1.0-4.0 10^3/uL Monocytes # (Auto) 0.5 0.0-1.0 10^3/uL Eosinophils # (Auto) 0.0 0.0-0.3 10^3/uL Basophils # (Auto) 0.1 0.0-0.1 10^3/uL Immature Granulocyte # (Auto) 0.5 H 0.0-0.1 10^3/uL Sodium Level 133 L 135-145 MMOL/L Potassium Level 4.3 3.6-5.0 MMOL/L Chloride Level 102 98-107 MMOL/L Carbon Dioxide Level 20 L 21-32 MMOL/L Anion Gap 11 5-14 MMOL/L Blood Urea Nitrogen 16 7-18 MG/DL Creatinine 1.65 H 0.60-1.30 MG/DL Estimat Glomerular Filtration Rate 49 BUN/Creatinine Ratio 10 Glucose Level 199 H 70-105 MG/DL Calcium Level 9.1 8.5-10.1 MG/DL Corrected Calcium 9.2 8.5-10.1 MG/DL Total Bilirubin 0.6 0.1-1.0 MG/DL Aspartate Amino Transf (AST/SGOT) 41 H 5-34 U/L Alanine Aminotransferase (ALT/SGPT) 55 0-55 U/L Alkaline Phosphatase 48 40-136 U/L Total Protein 7.1 6.4-8.2 GM/DL Albumin 3.9 3.2-4.5 GM/DL Physical Exam Physical Exam Vital Signs Vital Signs - First Documented 02/24/22 02/24/22 01:45 03:00 Temp 37.8 Pulse 97 Resp 50 B/P (MAP) 135/71 (92) Pulse Ox 96 O2 Delivery Room Air O2 Flow Rate 2.00 FiO2 90 Capillary Refill : Less Than 3 Seconds Height, Weight, BMI Height: 5'11.00" Weight: 318lbs. 0.0oz. 144.619634jk; 46.28 BMI Method:Stated General Appearance: Moderate Distress, Other (Acutely ill, anxious, moderate respiratory distress) Eyes: Bilateral Eye Normal Inspection HEENT: PERRL/EOMI, TMs Normal, Moist Mucous Membranes Neck: Non Tender, Supple Respiratory: Lungs Clear, Decreased Breath Sounds, Respiratory Distress Cardiovascular: Regular Rate, Rhythm, No Gallop, No Murmur Gastrointestinal: Non Tender, Soft Back: No CVA Tenderness Extremity: Normal Capillary Refill, Normal Inspection, Normal Range of Motion, Non Tender, No Calf Tenderness, No Pedal Edema Neurologic/Psychiatric: Alert Skin: Normal Color, Warm/Dry Lymphatic: No Adenopathy A/P-Cardiology Admission Diagnosis Sepsis Paroxysmal atrial fibrillation Hypertension Diabetes mellitus Assessment/Plan Sepsis, fever with elevated lactic acid. Patient was having significant dyspnea on arrival to the emergency room Chest x-ray was normal CT of the chest showed some lymphadenopathy. Patient is receiving antibiotic and reporting improvement, managed by medical team. Paroxysmal atrial fibrillation, currently in sinus rhythm. Patient had history of atrial fibrillation and has been compliant with his medication. [id number] score 3, maintained on Xarelto. Hypertension, restart home medication monitor blood pressure Diabetes mellitus, managed by primary care team COPD/obstructive sleep apnea, has been using CPAP. Mild bilateral carotid stenosis, ultrasound was done in August 2021 Obesity, BMI 46. History of peripheral edema, chronic. CAROLINE MOISE MD Feb 24, 2022 10:22
[2022-02-24] MEDS ORDERED: TORSEMIDE 20 MG (DEMADEX) TAB PO SCH (10:30)
[2022-02-24] MEDS ORDERED: LOSARTAN 25 MG (COZAAR) TAB PO SCH (10:30)
--- NOTE | 2022-02-24 10:32 | Tele-ICU Consult ---
History of Present Illness History of Present Illness Date Seen by Provider: Feb 24, 2022 Time Seen by Provider: 10:32 Date of Admission (Tele-ICU Physician , consultation) Available chart/ vitals / labs / Images reviewed H&P is from ER notes Patient's information available about PMH, Shx, Fhx allergy reviewed inEMR. ROS as per chart and RN report Now in ICU, hemodynamically stable Video assessment done using teleICU camera, rest of exam as per RN Discussed with RN. Consultants: Hospital course: (02/24) 56y/M in with sob, sepsis workup , bipap A/P Acute hypoxix resp failue with bronchospam ( no PE , no PNA ) - was on bipap for WOB and hypoxia - off now , on NC , doing better - cont NIPPV at night ( simona ) and prn Suspected br-spam - on large dose od IV steroids - to follow Suspected infection . 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 CKD - will cont IVF , monitor carefully with eleb BNP ( ECHO 09/27 EF 55% Leukocutosis - ? bact infection - ? sourse vs leukemoid reaction SIMONA - cont home CPAP Lines : periph , (Central Line Necessity Reviewed) Dick: void OG: Nutrition: Analgesia: Anxiety/ delirium VTE Prophylaxis: xarelto Stress Ulcer Prophylaxis: Plans in collaboration with bedside consultants and IM MDs. Discussed with RN to reach out if any questions or concerns A total of 34 minutes of critical care time was devoted to this patient today, required to treat and/or prevent further deterioration of critical care condition ( as above ) . I am remotely monitoring this patient from another state. I am unable to do the bedside exam, and history/physical and pertinent information is taken from other notes in the computer and bedside staff. I cannot take responsibility for the accuracy of this information. . Reason for Visit: Paroxysmal atrial fibrillation Allergies and Home Medications Allergies Coded Allergies: cyclobenzaprine (Verified Allergy, Mild, ITCHING, 07/02/19) lisinopril (Verified Allergy, Mild, COUGH, 07/02/19) Home Medications Amlodipine Besylate 10 Mg Tablet, 10 MG PO HS, (Reported) Aspirin 81 Mg Tablet., 81 MG PO DAILY Prescribed by: CARL WALKER on 12/02/18 1400 Carvedilol 25 Mg Tab, 25 MG PO BID, (Reported) Dronedarone HCl 400 Mg Tablet, 400 MG PO BID, (Reported) Furosemide 40 Mg Tablet, 40 MG PO DAILY, (Reported) Losartan Potassium 25 Mg Tablet, 25 MG PO DAILY, (Reported) Meloxicam 15 Mg Tablet, 15 MG PO DAILY, (Reported) Multivitamin 1 Each Capsule, 1 EACH PO DAILY, (Reported) Falconer-3 Fatty Acids/Fish Oil 1 Each Capsule, 1 EACH PO DAILY, (Reported) Omeprazole 40 Mg Capsule.dr, 40 MG PO DAILY, (Reported) Pravastatin Sodium 20 Mg Tablet, 20 MG PO HS, (Reported) Rivaroxaban 20 Mg Tablet, 20 MG PO DAILY, (Reported) Torsemide 20 Mg Tablet, 40 MG PO Q48H, (Reported) Past Medical/Social/Family Hx Patient Social History Marrital Status: Employed/Student: employed Tobacco Use?: Yes Smokeless type used: Chew Smokeless Tobacco Frequency: Current Everyday User Use of E-Cig and/or Vaping dev: No Substance use?: No Alcohol Use?: Yes Alcohol Frequency: Rarely Pt stated abuse/neglect: No Immunizations Up To Date Influenza Vaccine Up-to-Date: No; Not Current Tetanus Booster (TDap): More Than 5 Years Hepatitis A: No Hepatitis B: No TB Skin Test: Negative Current Status Advance Directives: No Communicates: Verbally Primary Language: Pashto Preferred Spoken Language: Pashto Is interpretation needed?: No Implanted or Applied Medical D: None Review of Systems Constitutional: see HPI Focused Exam Lactate Level 02/24/22 01:57: Lactic Acid Level 2.40*H 02/24/22 03:40: Lactic Acid Level 2.28*H 02/24/22 06:11: Lactic Acid Level 1.27 Height, Weight, BMI Height: 5'11.00" Weight: 318lbs. 0.0oz. 144.614425hx; 46.28 BMI Method:Stated Time of Focused Exam: 01:40 Exam Exam Patient acknowledged, consented, and participated in this virtual visit which was conducted using real time audio/video Vital Signs Date Time Temp Pulse Resp B/P (MAP) Pulse Ox O2 Delivery O2 Flow Rate FiO2 02/24/22 09:40 Nasal Cannula 4.00 02/24/22 09:00 74 25 124/71 (88) 94 NIV Bilevel 50.00 02/24/22 08:00 78 26 127/72 (90) 89 NIV Bilevel 50.00 02/24/22 08:00 NIV Bilevel 35 02/24/22 07:50 36.6 02/24/22 07:40 75 02/24/22 06:07 79 22 100 50.00 02/24/22 06:00 78 29 100 NIV Bilevel 50.00 02/24/22 05:45 79 22 122/71 (86) 97 Nasal Cannula 6.00 02/24/22 05:30 84 135/84 (105) 98 Nasal Cannula 6.00 02/24/22 05:30 95 Nasal Cannula 6.00 02/24/22 05:19 85 02/24/22 05:17 86 15 148/88 (113) 98 Nasal Cannula 6.00 02/24/22 04:27 38.0 88 26 123/52 94 Nasal Cannula 3.00 02/24/22 03:00 Nasal Cannula 2.00 90 02/24/22 02:55 94 Room Air 02/24/22 01:45 37.8 97 50 135/71 (92) 96 Room Air I & O 02/24/22 07:00 Intake Total 1750 ml Balance 1750 ml Height & Weight Height: 5'11.00" Weight: 318lbs. 0.0oz. 144.627729fw; 46.28 BMI Method:Stated General Appearance: No Apparent Distress, Moderate Distress, Other (Acutely ill, anxious, moderate respiratory distress) HEENT: PERRL/EOMI, TMs Normal, Moist Mucous Membranes Neck: Non Tender, Supple Respiratory: Lungs Clear, Decreased Breath Sounds, Respiratory Distress Cardiovascular: Regular Rate, Rhythm, No Gallop, No Murmur Capillary Refill: Less Than 3 Seconds Extremity: Normal Capillary Refill, Normal Inspection, Normal Range of Motion, Non Tender, No Calf Tenderness, No Pedal Edema Neurologic/Psychiatric: Alert Skin: Normal Color, Warm/Dry Lymphatic: No Adenopathy Results Lab Laboratory Tests 02/24/22 01:57 02/24/22 09:24 Assessment/Plan Assessment/Plan 1 MARIA L TITUS MD Feb 24, 2022 10:32
[2022-02-24] MEDS: ASPIRIN E.C. 81 MG (ECOTRIN) TAB PO SCH (10:37)
[2022-02-24] MEDS: DRONEDARONE 400 MG TABLET PO SCH ×2 (10:37→21:05)
--- NOTE | 2022-02-24 10:59 | History & Physical-Hospitalist ---
ANTOINETTE JESUS 02/24/22 1059: History of Present Illness HPI/Chief Complaint CC: Acute shortness of breath, fever, chills HPI: Mr. Hawk, 56 YO M with hx of sleep apnea and paroxysmal A-fib, was admitted to ICU for acute respiratory distress and sepsis. He presented to the ED last night due to waking up with fever, chills, SOB, body aches and rigors af ter working with hay lencho earlier that day. He sleeps with CPAP on at night. In ED he was found to be in respiratory distress with rapid breathing of 40-45 breaths per min and O2 in 80s. He was also septic with lactic acid of 2.4 and was started on zosyn, methylprednisone, and duonebs. He responded well to the treatment and was placed on BIPAP in the ICU. D-dimer and CTA were negative for evidence of PE. This morning patient was feeling much better, oxygenating 100% on BIPAP. Lactic acid improved this morning to 1.27, ABG 7.4, 37, 59. We started him on doxycycline and ceftriaxone. He denies chest pain, fever, chills, N/V/D, or any other acute sx. Source: patient, RN/MD, other (ER report) Exam Limitations: other (on Bipap) Date Seen 02/24/22 Time Seen by a Provider: 08:45 Attending Physician Kumar Covarrubias MD PCP Admitting Physician: Ana Rosa Wilson DO Attending Physician: Ana Rosa Wilson DO Referring Physician Date of Admission Feb 24, 2022 at 05:05 Home Medications & Allergies Home Medications Reviewed patient Home Medication Reconciliation performed by pharmacy medication reconciliations dyno technician and/or nursing. Patients Allergies have been reviewed. Allergies Allergies Coded Allergies cyclobenzaprine (Verified Allergy, Mild, ITCHING, 07/02/19) lisinopril (Verified Allergy, Mild, COUGH, 07/02/19) Past Xclgljn-Xooowy-Ovfjit Hx Patient Social History Marrital Status: Employed/Student: employed Tobacco Use?: Yes Smokeless type used: Chew Smokeless Tobacco Frequency: Current Everyday User Use of E-Cig and/or Vaping dev: No Substance use?: No Alcohol Use?: Yes Alcohol Frequency: Rarely Pt feels they are or have been: No Immunizations Up To Date Date of Influenza Vaccine: May 12, 2020 Tetanus Booster (TDap): More Than 5 Years Hepatitis A: No Hepatitis B: No Seasonal Allergies Seasonal Allergies: No Current Status Advance Directives: No Communicates: Verbally Primary Language: Ghanaian Preferred Spoken Language: Ghanaian Is interpretation needed?: No Implanted or Applied Medical D: CPAP (at night ) Past Medical History Surgeries: Gallbladder, Vasectomy Sleep Apnea Currently Using CPAP: Yes Currently Using BIPAP: No Atrial Fibrillation (paroxysmal), High Cholesterol, Hypertension Sexually Transmitted Disease: No HIV/AIDS: No Gastroesophageal Reflux Arthritis Loss of Vision: Denies Hearing Impairment: Denies Blood Disorders: No Adverse Reaction/Blood Tranf: No (N/A) Family Medical History Cardiovascular disease 19 MOTHER Diabetes mellitus 19 FATHER Hypertension 19 FATHER 19 MOTHER G8 BROTHER Myocardial infarction 19 MOTHER Respiratory disorder 19 MOTHER Review of Systems Constitutional: No diaphoresis, No fever; other (chills and fever, improved) EENTM: No ear pain, No blurred vision, No throat pain Respiratory: No cough; short of breath (improved this AM); No wheezing Cardiovascular: No chest pain, No palpitations, No syncope Gastrointestinal: No abdominal pain, No diarrhea, No nausea, No vomiting Genitourinary: No dysuria, No frequency, No hematuria Skin: No change in color, No rash Physical Exam Physical Exam Vital Signs Vital Signs - First Documented 02/24/22 02/24/22 01:45 03:00 Temp 37.8 Pulse 97 Resp 50 B/P (MAP) 135/71 (92) Pulse Ox 96 O2 Delivery Room Air O2 Flow Rate 2.00 FiO2 90 Capillary Refill : Less Than 3 Seconds Height, Weight, BMI Height: 5'11.00" Weight: 318lbs. 0.0oz. 144.781281yw; 46.28 BMI Method:Stated General Appearance: No Apparent Distress, Obese Eyes: Bilateral Eye PERRL, Bilateral Eye EOMI HEENT: PERRL/EOMI, Moist Mucous Membranes Neck: Non Tender, Supple Respiratory: Lungs Clear, Normal Breath Sounds, No Accessory Muscle Use, No Respiratory Distress, Other (good air movement) Cardiovascular: Regular Rate, Rhythm, No Gallop, No Murmur, Normal Peripheral Pulses Gastrointestinal: Normal Bowel Sounds, Non Tender, Soft Back: No CVA Tenderness Extremity: Normal Capillary Refill, Non Tender, No Calf Tenderness, Pedal Edema, Other (bilateral LE swelling with some chronic venous stasis changes. ) Neurologic/Psychiatric: Alert, Oriented x3, Normal Mood/Affect Skin: Normal Color, Warm/Dry Lymphatic: No Adenopathy Results Results/Procedures Labs Laboratory Tests 02/24/22 01:57 02/24/22 09:24 Patient resulted labs reviewed. Assessment/Plan Admission Diagnosis Acute Respiratory Distress and Sepsis Admission Status: Inpatient Order (span 2 midnights) Reason for Inpatient Admission: Acute Respiratory Distress and Sepsis Assessment and Plan Assessment: Sepsis - white count elevated. Lactic acid now 1.27 Acute Respiratory Distress - improved, oxygenating at 100% on BIPAP Obesity Hypoventilation Syndrome Chronic alkolosis - ABG 7.49, 37, 59 Upper Respiratory Tract infection - likely viral or related to hay exposure Sleep Apnea - CPAP at night Paroxysmal A-fib - on xarelto NINA - Cr 1.65, will continue to monitor Obese male - BMI 46 HTN Plan: Continue IVF and steroids (methylprednisone 80 mg) IV Abx - doxycycline (100ml/hr, 10 bags) and ceftriaxone (100ml/hr, 5 bags) Cardiology consult appreciated Supportive care and close monitoring ANA ROSA WILSON DO 02/24/222056: Past Nqvtczy-Ikphnv-Swxbla Hx Patient Social History Marrital Status: Employed/Student: employed ([employer]) Smoking Status: Former Smoker Past Medical History Sleep Apnea Currently Using CPAP: No Currently Using BIPAP: Yes Atrial Fibrillation (paroxysmal), High Cholesterol, Hypertension Family Medical History Cardiovascular disease 19 MOTHER Diabetes mellitus 19 FATHER Hypertension 19 FATHER 19 MOTHER G8 BROTHER Myocardial infarction 19 MOTHER Respiratory disorder 19 MOTHER Review of Systems Constitutional: see HPI, fever, malaise, weakness Respiratory: dyspnea on exertion, short of breath (improved this AM) All Other Systems Reviewed Negative Unless Noted: Yes Physical Exam Physical Exam General Appearance: No Apparent Distress, Anxious, Chronically ill, Obese, O ther (bipap) Eyes: Right Eye Normal Inspection, Right Eye PERRL HEENT: PERRL/EOMI, Normal ENT Inspection, Pharynx Normal, Moist Mucous Membranes Neck: Full Range of Motion, Normal Inspection, Non Tender Respiratory: Chest Non Tender, Lungs Clear, Normal Breath Sounds, No Accessory Muscle Use, No Respiratory Distress, Decreased Breath Sounds, Other (good air movement) Cardiovascular: Regular Rate, Rhythm, No Edema, No Gallop, No JVD, No Murmur, Normal Peripheral Pulses Gastrointestinal: Normal Bowel Sounds, No Organomegaly, No Pulsatile Mass, Non Tender, Soft Back: Normal Inspection, No CVA Tenderness, No Vertebral Tenderness Extremity: Normal Capillary Refill, Normal Inspection, Normal Range of Motion, Non Tender, No Calf Tenderness, No Pedal Edema Neurologic/Psychiatric: Alert, Oriented x3, No Motor/Sensory Deficits, Normal Mood/Affect Skin: Normal Color, Warm/Dry Lymphatic: No Adenopathy Assessment/Plan Admission Diagnosis Assessment: Acute respiratory failure Suspect obesity hypoventilation syndrome SIMONA on biPAP Obesity BMI 46 HTN AF Plan: O2 BiPAP Cardiology ICU Admission Status: Inpatient Order (span 2 midnights) Reason for Inpatient Admission: resp failure Supervisory-Addendum Brief Verification & Attestation Participated in pt care: history, MDM, physical Personally performed: exam, history, MDM, supervision of care Care discussed with: Medical Student Procedures: n/a Results interpretation: Verified all documentation Verification and Attestation of Medical Student E/M Service A medical student performed and documented this service in my presence. I reviewed and verified all information documented by the medical student and made modifications to such information, when appropriate. I personally performed the physical exam and medical decision making. Ana Rosa Wilson, Feb 24, 2022,20:55 ANTOINETTE JESUS Feb 24, 2022 10:59 ANA ROSA WILSON DO Feb 24, 2022 20:57
[2022-02-24] MEDS ORDERED: inSUlin ASPART (NovoLOG) 1 UNIT/0.01 ML (CHARGE PER UNIT) ONE (12:55)
[2022-02-24] MEDS: inSUlin ASPART (NovoLOG) 1 UNIT/0.01 ML (CHARGE PER UNIT) SC SCH ×3 (12:57→21:05)
[2022-02-24] MEDS ORDERED: ASPI-1238 PO (13:35)
[2022-02-24] MEDS ORDERED: FENO145T26 PO (13:35)
[2022-02-24] MEDS ORDERED: MAGN250C PO (13:35)
[2022-02-24] MEDS ORDERED: ALLO300T2 PO (13:35)
[2022-02-24] MEDS ORDERED: CELE-63 PO (13:35)
[2022-02-24] MEDS ORDERED: METF-397 PO (13:35)
[2022-02-24] MEDS ORDERED: MULT-1136 PO (13:35)
[2022-02-24] MEDS ORDERED: TORSEMIDE 20 MG (DEMADEX) TAB PO NR (14:30)
[2022-02-24] MEDS: RIVAROXABAN 20 MG TABLET (XARELTO) PO SCH (17:07)
[2022-02-24] MEDS: AtorvaSTATin TABLET 10 MG TABLET PO SCH (21:05)
[2022-02-24 22:39] VITALS: BP_DIAS 120
[2022-02-25] MEDS: NS IV 1000 ML 1,000 ML IV SCH (01:00)
[2022-02-25 02:33] VITALS: BP_DIAS 114
[2022-02-25] MEDS: RT-ALBUTEROL/IPRATROPIUM 3 ML (DUONEB) VIAL INH SCH ×6 (02:33→22:49)
[2022-02-25] MEDS: methylPREDNISolone 40 MG/ML (Solu-MEDROL) VIAL IV SCH ×2 (04:19→08:43)
[2022-02-25 05:11] LABS: BASOPHILS % (AUTO) 0 % (0-10); EOSINOPHILS % (AUTO) 0 % (0-10); HEMATOCRIT 34 % (40-54); LYMPHOCYTES # (AUTO) 1.5 10^3/uL (1.0-4.0); LYMPHOCYTES % (AUTO) 7 % (12-44); MEAN CORPUSCULAR HEMOGLOBIN 27 pg (25-34); MEAN CORPUSCULAR HGB CONC 32 g/dL (32-36); MEAN CORPUSCULAR VOLUME 83 fL (80-99); MEAN PLATELET VOLUME 9.8 fL (9.0-12.2); MONOCYTES # (AUTO) 0.6 10^3/uL (0.0-1.0); MONOCYTES % (AUTO) 3 % (0-12); NEUTROPHILS % (AUTO) 90 % (42-75); PLATELET COUNT 202 10^3/uL (130-400); WHITE BLOOD COUNT 23.4 10^3/uL (4.3-11.0)
[2022-02-25 05:46] LABS: ALBUMIN 3.4 GM/DL (3.2-4.5); BILIRUBIN,TOTAL 0.5 MG/DL (0.1-1.0); CALCIUM 8.8 MG/DL (8.5-10.1); CREATININE SERUM 1.55 MG/DL (0.60-1.30); MAGNESIUM 2.1 MG/DL (1.6-2.4); PHOSPHORUS 2.9 MG/DL (2.3-4.7); POTASSIUM 4.4 MMOL/L (3.6-5.0); TOTAL PROTEIN 6.5 GM/DL (6.4-8.2)
[2022-02-25] MEDS: KCL 20 MEQ TAB (K-DUR) PO SCH (05:51)
[2022-02-25] MEDS: POTASSIUM CL 10MEQ/50ML IVPB 50 ML IV SCH (05:51)
[2022-02-25] MEDS: MAGNESIUM 1 GM/100 ML IVPB 100 ML IV SCH (05:51)
[2022-02-25] MEDS: cefTRIAXone 1 GM PRE-MIX 50 ML IV SCH (06:01)
[2022-02-25] MEDS: inSUlin ASPART (NovoLOG) 1 UNIT/0.01 ML (CHARGE PER UNIT) SC SCH ×4 (06:01→20:48)
[2022-02-25 06:56] VITALS: BP_DIAS 120
[2022-02-25] MEDS: ALLOPURINOL 300 MG (ZYLOPRIM) TAB PO SCH (08:44)
[2022-02-25] MEDS: DOXYCYCLINE INJECTION 100 MG in NS (IVPB) 100 ML IV SCH (08:44)
[2022-02-25] MEDS: FENOFIBRATE 134 MG (LOFIBRA) CAPSULE PO SCH (08:44)
[2022-02-25] MEDS: TORSEMIDE 20 MG (DEMADEX) TAB PO SCH (08:44)
[2022-02-25] MEDS: DRONEDARONE 400 MG TABLET PO SCH ×2 (08:44→20:47)
[2022-02-25] MEDS: DOCUSATE SODIUM 100 MG (COLACE) CAP PO SCH ×2 (08:44→22:01)
[2022-02-25] MEDS: ASPIRIN E.C. 81 MG (ECOTRIN) TAB PO SCH (08:44)
--- NOTE | 2022-02-25 08:56 | Cardiology Progress Note ---
Subjective Date Seen by Provider: Feb 25, 2022 Time Seen by Provider: 08:55 Subjective/Events-last exam Patient was seen at bedside, laying down comfortably, using CPAP at night. Feeling better Review of Systems General: No Chills, No Night Sweats, No Fatigue, No Malaise, No Appetite, No Other HEENT: No Head Aches, No Visual Changes, No Eye Pain, No Ear Pain, No Dy sphasia, No Sinus Congestion, No Post Nasal Drip, No Sore Throat, No Other Pulmonary: No Dyspnea, No Cough, No Pleuritic Chest Pain, No Other Cardiovascular: No: Chest Pain, Palpitations, Orthopnea, Paroxysmal Noc. Dyspnea, Edema, Lt Headedness, Other Focused Exam Lactate Level 02/24/22 01:57: Lactic Acid Level 2.40*H 02/24/22 03:40: Lactic Acid Level 2.28*H 02/24/22 06:11: Lactic Acid Level 1.27 Time of Focused Exam: 01:40 Objective-Cardiology Exam Last Set of Vital Signs Vital Signs 02/25/22 02/25/22 02/25/22 02/25/22 04:32 06:00 06:56 08:00 Temp 35.9 Pulse 61 Resp 18 B/P (MAP) 120/68 (85) Pulse Ox 96 O2 Delivery NIV Bilevel O2 Flow Rate 35.00 FiO2 35 I&O Intake and Output 02/25/22 00:00 Intake Total 6000 ml Output Total 1801 ml Balance 4199 ml Intake Oral 3350 ml IV Total 2650 ml Output Urine Total 1801 ml # Bowel Movements 1 Daily Weight Change No General: Alert, Oriented X3, Cooperative HEENT: Atraumatic, PERRLA Neck: Supple, No JVD, No Thyromegaly Lungs: Clear to Auscultation, Normal Air Movement Heart: Regular Rate, Normal S1, Normal S2, No Murmurs Abdomen: Normal Bowel Sounds, Soft, No Tenderness, No Hepatosplenomegaly, No Masses Extremities: No Clubbing, No Cyanosis, No Edema, Normal Pulses, No Tenderness/Swelling Skin: No Rashes, No Breakdown, No Significant Lesion Neuro: Normal Gait, Normal Speech, Strength at 5/5 X4 Ext, Normal Tone, Sensation Intact Psych/Mental Status: Mental Status NL, Mood NL Results Lab Laboratory Tests 02/24/22 09:24 02/25/22 05:00 A/P-Cardiology Admission Diagnosis Sepsis Paroxysmal atrial fibrillation Hypertension Diabetes mellitus Assessment/Plan Sepsis, fever with elevated lactic acid. Patient was having significant dyspnea on arrival to the emergency room Chest x-ray was normal CT of the chest showed some lymphadenopathy. Patient is receiving antibiotic and reporting improvement, managed by medical team. Paroxysmal atrial fibrillation, currently in sinus rhythm. Patient had history of atrial fibrillation and has been compliant with his medication. [id number] score 3, maintained on Xarelto. Hypertension, continue to monitor blood pressure Diabetes mellitus, managed by primary care team COPD/obstructive sleep apnea, has been using CPAP. Mild bilateral carotid stenosis, ultrasound was done in August 2021 Obesity, BMI 46. History of peripheral edema, chronic. CAROLINE MOISE MD Feb 25, 2022 08:56
[2022-02-25] MEDS ORDERED: ASPIRIN E.C. 81 MG (ECOTRIN) TAB PO SCH (09:00)
[2022-02-25] MEDS ORDERED: NON-FORMULARY MEDICATION 1 EA EA (Fenofibrate Nanocrystallized (Fenofibrate) 145 MG) PO SCH (09:00)
[2022-02-25] MEDS ORDERED: RIVAROXABAN 20 MG TABLET (XARELTO) PO SCH (09:00)
--- NOTE | 2022-02-25 10:09 | Tele-ICU Progress Note ---
Subjective Date Seen by a Provider: Feb 25, 2022 Time Seen by a Provider: 10:09 Subjective/Events-last exam (Tele-ICU Physician , Progress Note ) Available chart/ vitals / labs / Images reviewed Video assessment done using teleICU camera, rest of exam as per RN Discussed with RN Events overnight : Afebrile hemodynamically stable Respiratory - I/O = Drips: Pressors- no Consultants: Hospital course: (02/24) 56y/M in with sob, sepsis workup , bipap A/P Acute hypoxix resp failue with bronchospam ( no PE , no PNA ) - was on bipap for WOB and hypoxia - off now , on NC , doing better- TO WEAN OFF O2 - cont NIPPV at night ( destiney ) and prn Suspected br-spam - on large dose od IV steroids - no wheezing now - DECREASED TODAY - ? as per PCP Suspected infection . viral syndrome ? cellulitis ? 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 CKD - will stop IVF , carefully with elev BNP ( ECHO 09/27 EF 55% Leukocutosis - ? bact infection - ? sourse vs leukemoid reaction - improving DESTINEY - cont home CPAP Lines : periph , (Central Line Necessity Reviewed) Dick: void OG: Nutrition: Analgesia: Anxiety/ delirium VTE Prophylaxis: xarelto Stress Ulcer Prophylaxis: Plans in collaboration with bedside consultants and IM MDs. Discussed with RN to reach out if any questions or concerns A total of 32 minutes of critical care time was devoted to this patient today, required to treat and/or prevent further deterioration of critical care condition ( as above ) . I am remotely monitoring this patient from another state. I am unable to do the bedside exam, and history/physical and pertinent information is taken from other notes in the computer and bedside staff. Sepsis Event Evaluation Height, Weight, BMI Height: 5'11.00" Weight: 318lbs. 0.0oz. 144.581599jk; 46.66 BMI Method:Stated Focused Exam Lactate Level 02/24/22 01:57: Lactic Acid Level 2.40*H 02/24/22 03:40: Lactic Acid Level 2.28*H 02/24/22 06:11: Lactic Acid Level 1.27 Time of Focused Exam: 01:40 Exam Exam Patient acknowledged, consented, and participated in this virtual visit which was conducted using real time audio/video Vital Signs Date Time Temp Pulse Resp B/P (MAP) Pulse Ox O2 Delivery O2 Flow Rate FiO2 02/25/22 08:00 35.9 02/25/22 08:00 Nasal Cannula 4.00 02/25/22 07:55 66 02/25/22 06:56 61 18 96 35.00 02/25/22 06:00 111 21 120/68 (85) 98 NIV Bilevel 35.00 02/25/22 05:00 63 14 104/58 (73) 97 NIV Bilevel 35.00 02/25/22 04:32 NIV Bilevel 35 02/25/22 04:00 55 24 105/60 (75) 97 NIV Bilevel 35.00 02/25/22 03:00 60 21 110/61 (77) 97 NIV Bilevel 35.00 02/25/22 02:33 56 21 97 35.00 02/25/22 02:29 36.2 NIV Bilevel 35.00 02/25/22 02:00 64 114/60 (78) 100 NIV Bilevel 35.00 02/25/22 01:00 61 02/25/22 01:00 61 113/60 (77) 95 NIV Bilevel 35.00 02/25/22 00:56 36.4 NIV Bilevel 35.00 02/25/22 00:22 35.6 02/25/22 00:00 63 107/54 (71) 96 Nasal Cannula 4.00 02/25/22 00:00 NIV Bilevel 35 02/24/22 23:00 66 133/75 (94) 96 Nasal Cannula 4.00 02/24/22 22:39 68 20 99 35.00 02/24/22 22:35 36.8 Nasal Cannula 4.00 02/24/22 22:00 74 128/65 (86) 97 Nasal Cannula 4.00 02/24/22 21:00 109 123/63 (83) 97 Nasal Cannula 4.00 02/24/22 20:04 36.0 02/24/22 20:00 80 112/80 (91) 97 Nasal Cannula 4.00 02/24/22 20:00 Nasal Cannula 4.00 02/24/22 19:00 80 117/60 (79) 95 Nasal Cannula 4.00 02/24/22 19:00 79 02/24/22 18:47 78 Nasal Cannula 4.00 02/24/22 18:00 81 130/67 (88) 95 Nasal Cannula 4.00 02/24/22 17:00 81 164/92 (116) 97 Nasal Cannula 4.00 02/24/22 16:00 Nasal Cannula 4.00 02/24/22 16:00 76 86/55 (65) 95 Nasal Cannula 4.00 02/24/22 15:12 79 24 98 35.00 02/24/22 15:00 95 115/65 (82) 97 Nasal Cannula 4.00 02/24/22 14:00 110 110/66 (81) 98 Nasal Cannula 4.00 02/24/22 13:00 77 38 112/80 (91) 98 Nasal Cannula 4.00 02/24/22 12:35 79 02/24/22 12:00 Nasal Cannula 4.00 02/24/22 12:00 76 28 119/58 (78) 97 Nasal Cannula 4.00 02/24/22 11:21 37.5 02/24/22 11:07 95 Nasal Cannula 4.00 02/24/22 11:00 76 28 127/69 (88) Nasal Cannula 4.00 I & O 02/25/22 06:59 Intake Total 6100 ml Output Total 2626 ml Balance 3474 ml Height & Weight Height: 5'11.00" Weight: 318lbs. 0.0oz. 144.135763eu; 46.66 BMI Method:Stated General Appearance: No Apparent Distress, Anxious, Chronically ill, Obese, Other (bipap) HEENT: PERRL/EOMI, Normal ENT Inspection, Pharynx Normal, Moist Mucous Membranes Neck: Full Range of Motion, Normal Inspection, Non Tender Respiratory: Chest Non Tender, Lungs Clear, Normal Breath Sounds, No Accessory Muscle Use, No Respiratory Distress, Decreased Breath Sounds, Other (good air movement) Cardiovascular: Regular Rate, Rhythm, No Edema, No Gallop, No JVD, No Murmur, Normal Peripheral Pulses Capillary Refill: Less Than 3 Seconds Extremity: Normal Capillary Refill, Normal Inspection, Normal Range of Motion, Non Tender, No Calf Tenderness, No Pedal Edema Neurologic/Psychiatric: Alert, Oriented x3, No Motor/Sensory Deficits, Normal Mood/Affect Skin: Normal Color, Warm/Dry Lymphatic: No Adenopathy Results Lab Laboratory Tests 02/24/22 01:57 02/24/22 09:24 02/25/22 05:00 Assessment/Plan Assessment/Plan 1 MARIA L TITUS MD Feb 25, 2022 10:09
--- NOTE | 2022-02-25 12:16 | Progress Note - Hospitalist ---
EDINANTOINETTE 02/25/22 1216: Subjective HPI/CC On Admission Date Seen by Provider: Feb 25, 2022 Time Seen by Provider: 10:40 CC: Acute shortness of breath, fever, chills HPI: Mr. Hawk, 56 YO M with hx of sleep apnea and paroxysmal A-fib, was admitted to ICU for acute respiratory distress and sepsis. He presented to the ED last night due to waking up with fever, chills, SOB, body aches and rigors after working with [employer] earlier that day. He sleeps with CPAP on at night. In ED he was found to be in respiratory distress with rapid breathing of 40-45 breaths per min and O2 in 80s. He was also septic with lactic acid of 2.4 and was started on zosyn, methylprednisone, and duonebs. He responded well to the treatment and was placed on BIPAP in the ICU. D-dimer and CTA were negative for evidence of PE. This morning patient was feeling much better, oxygenating 100% on BIPAP. Lactic acid improved this morning to 1.27, ABG 7.4, 37, 59. We started him on doxycycline and ceftriaxone. He denies chest pain, fever, chills, N/V/D, or any other acute sx. Subjective/Events-last exam Pt feeling much better today, oxygenating 98% on 4L NC Eating and drinking normally with good urinary output Last BM was last night Echo yesterday (02/24) showed some LVH with EF 55-60% He is c/o some very mild LLE pain after dropping a mower on it 1.5 weeks ago. Some mild bruising noted but he is ambulatory without difficulty. Had doppler and xray on LLE last year without any abnormalities No fever, chills, N/V/D, abdominal pain Review of Systems General: No Chills, No Night Sweats, No Fatigue HEENT: No Head Aches, No Sore Throat Pulmonary: No Cough Cardiovascular: No: Chest Pain Gastrointestinal: No: Nausea, Vomiting, Abdominal Pain Genitourinary: No Dysuria, No Hematuria, No Retention Musculoskeletal: back pain (chronic ), leg pain (left lower leg pain ) Neurological: No: Weakness, Numbness Focused Exam Lactate Level 02/24/22 01:57: Lactic Acid Level 2.40*H 02/24/22 03:40: Lactic Acid Level 2.28*H 02/24/22 06:11: Lactic Acid Level 1.27 Time of Focused Exam: 01:40 Objective Exam Vital Signs Vital Signs Date Time Temp Pulse Resp B/P (MAP) Pulse Ox O2 Delivery O2 Flow Rate FiO2 02/25/22 12:00 36.8 02/25/22 11:00 71 28 109/49 (69) 92 NIV Bilevel 35.00 02/25/22 04:32 35 Capillary Refill : Less Than 3 Seconds General Appearance: No Apparent Distress, Obese HEENT: PERRL/EOMI, Moist Mucous Membranes Neck: Non Tender, Supple Respiratory: Chest Non Tender, Lungs Clear, Normal Breath Sounds, No Accessory Muscle Use, No Respiratory Distress Cardiovascular: Regular Rate, Rhythm, No Gallop, No JVD, No Murmur, Normal Peripheral Pulses Gastrointestinal: Normal Bowel Sounds, Non Tender, Soft Back: No CVA Tenderness, Other (Thoracic paraspinal tenderness with no midline tenderness or step offs. ) Extremity: Normal Capillary Refill, Non Tender, No Calf Tenderness, Swelling, Other (Bilateral lower extremity swelling, worse on L than R. Mild tenderness to palpation over left anterior lower leg with some swelling, mild bruising and redness. He is able to bear weight on LLE. ) Neurologic/Psychiatric: Alert, Oriented x3, Normal Mood/Affect Skin: Normal Color, Warm/Dry Lymphatic: No Adenopathy Results/Procedures Lab Laboratory Tests 02/25/22 05:00 Patient resulted labs reviewed. Assessment/Plan Assessment and Plan Assess & Plan/Chief Complaint Assessment: Sepsis - white count trending down Acute Respiratory Distress - improved - BIPAP was used only at night - 98% on NC 4L Obesity Hypoventilation Syndrome Chronic alkolosis - ABG (02/24/22) 7.49, 37, 59 Upper Respiratory Tract infection - likely viral or related to hay exposure Sleep Apnea - CPAP at night Paroxysmal A-fib - on xarelto NINA - Cr 1.65, will continue to monitor Obese male - BMI 46 HTN Plan: Move to the floor today Discontinued methylprednisolone, doxycycline and ceftriaxone Switched to cefdinir (300mg BID) PT/OT Bipap at night Supportive care ANA ROSA ZAIDI DO 02/26/22 0525: Assessment/Plan Assessment and Plan Assess & Plan/Chief Complaint Transfer to floor today Supervisory-Addendum Brief Verification & Attestation Participated in pt care: history, MDM, physical Personally performed: exam, history, MDM, supervision of care Care discussed with: Medical Student Procedures: n/a Results interpretation: Verified all documentation Verification and Attestation of Medical Student E/M Service A medical student performed and documented this service in my presence. I reviewed and verified all information documented by the medical student and made modifications to such information, when appropriate. I personally performed the physical exam and medical decision making. Ana Rosa Zaidi, Feb 26, 2022,05:25 ANTOINETTE JESUS Feb 25, 2022 12:16 ANA ROSA ZAIDI DO Feb 26, 2022 05:25
[2022-02-25] MEDS ORDERED: methylPREDNISolone 40 MG/ML (Solu-MEDROL) VIAL IV SCH (17:00)
[2022-02-25] MEDS: RIVAROXABAN 20 MG TABLET (XARELTO) PO SCH (17:17)
[2022-02-25 20:00] VITALS: BP 156/80
[2022-02-25] MEDS: AtorvaSTATin TABLET 10 MG TABLET PO SCH (20:47)
[2022-02-25] MEDS: CEFDINIR 300 MG (OMNICEF) CAP PO SCH (20:47)
[2022-02-25] MEDS ORDERED: LOSARTAN 25 MG (COZAAR) TAB PO SCH (21:00)
[2022-02-25 22:49] VITALS: BP_DIAS 120
[2022-02-26] VITALS: BP 119/59
[2022-02-26 02:11] VITALS: BP_DIAS 120
[2022-02-26] MEDS: RT-ALBUTEROL/IPRATROPIUM 3 ML (DUONEB) VIAL INH SCH ×3 (02:11→10:59)
[2022-02-26 04:00] VITALS: BP 115/59
[2022-02-26] MEDS: inSUlin ASPART (NovoLOG) 1 UNIT/0.01 ML (CHARGE PER UNIT) SC SCH ×2 (06:13→11:22)
[2022-02-26 06:28] LABS: BASOPHILS % (AUTO) 0 % (0-10); EOSINOPHILS % (AUTO) 0 % (0-10); HEMATOCRIT 35 % (40-54); HEMOGLOBIN 11.3 g/dL (13.3-17.7); LYMPHOCYTES # (AUTO) 1.8 10^3/uL (1.0-4.0); LYMPHOCYTES % (AUTO) 8 % (12-44); MEAN CORPUSCULAR HEMOGLOBIN 26 pg (25-34); MEAN CORPUSCULAR HGB CONC 32 g/dL (32-36); MEAN CORPUSCULAR VOLUME 82 fL (80-99); MEAN PLATELET VOLUME 10.4 fL (9.0-12.2); MONOCYTES % (AUTO) 5 % (0-12); NEUTROPHILS # (AUTO) 19.1 10^3/uL (1.8-7.8); NEUTROPHILS % (AUTO) 87 % (42-75); PLATELET COUNT 214 10^3/uL (130-400); WHITE BLOOD COUNT 22.2 10^3/uL (4.3-11.0)
[2022-02-26 06:41] LABS: ALBUMIN 3.3 GM/DL (3.2-4.5); POTASSIUM 4.7 MMOL/L (3.6-5.0)
[2022-02-26 06:42] LABS: CALCIUM 8.5 MG/DL (8.5-10.1)
[2022-02-26 06:44] LABS: TOTAL PROTEIN 6.4 GM/DL (6.4-8.2)
[2022-02-26 06:46] LABS: BILIRUBIN,TOTAL 0.4 MG/DL (0.1-1.0)
[2022-02-26 06:47] LABS: CREATININE SERUM 1.35 MG/DL (0.60-1.30)
[2022-02-26 06:50] LABS: MAGNESIUM 2.4 MG/DL (1.6-2.4)
[2022-02-26 07:43] VITALS: BP 136/72
[2022-02-26] MEDS: FENOFIBRATE 134 MG (LOFIBRA) CAPSULE PO SCH (08:55)
[2022-02-26] MEDS: CEFDINIR 300 MG (OMNICEF) CAP PO SCH (08:55)
[2022-02-26] MEDS: DRONEDARONE 400 MG TABLET PO SCH (08:55)
[2022-02-26] MEDS: ASPIRIN E.C. 81 MG (ECOTRIN) TAB PO SCH (08:55)
[2022-02-26] MEDS: ALLOPURINOL 300 MG (ZYLOPRIM) TAB PO SCH (08:56)
[2022-02-26] MEDS: DOCUSATE SODIUM 100 MG (COLACE) CAP PO SCH (08:56)
[2022-02-26] MEDS: TORSEMIDE 20 MG (DEMADEX) TAB PO SCH (08:56)
--- NOTE | 2022-02-26 09:17 | Occ Therapy Progress Note ---
Therapy Progress Note OT orders received and chart reviewed. OT visited with pt who indicates he is at his PLOF with ADLs and functional mobility. He has been up in his room independently, taking himself to the bathroom without difficulty, he feels steady on his feet, and doesn't see any difficulties with self care tasks at this time. Pt able to eat independently during visit. No skilled OT services indicated at this time, as pt is at PLOF with ADLs and functional mobility at this time. D/C from OT 1, visit 09 SEN GARCIA OT Feb 26, 2022 09:17
--- NOTE | 2022-02-26 10:30 | Physician Query Clarification ---
Physician Query-General Query to Physician: The medical record reflects the following clinical scenario: History/Risk factors: Sepsis, No documentation of Home 02, Clinical Findings: Documentation of shortness of air with exertion and labored breathing upon admission also documenting shortness of air at rest within a few hours, RR 50 on admission decreased to 26 after 02 started at 3L with sat of 94% (P/F=228) 02 increased as high FIO2 of 50%, RR in the mid 20s to 30s at times since admission Treatment: Supplemental 02, Albuterol, Solu-Medrol IV, Zosyn IV, vancomycin IV, Question: Is Acute Respiratory Failure a clinically valid diagnosis? Acute Respiratory Failure was documented in the H and P with no further do cumentation of Acute Respiratory Failure in the medical record. (Acute Respiratory Distress has been documented multiple times in the chart). If yes, please document in the Progress Notes and Discharge Summary. 1. Yes, Acute Respiratory Failure is clinically valid, condition resolving 2. No, Acute Respiratory Failure was ruled out 3. Other, with explanation of clinical findings 4. Undetermined, no explanation for clinical findings In responding to this query, please exercise your independent professional judgment. The purpose of this communication is to more accurately reflect the complexity of your patients condition. The fact that a question is asked does not imply that any particular answer is desired or expected. Thank you for your timely response to this clarification. Laly Morrison MSN, RN Clinical Strap Buckler Machine [email or web address] PHYSICIAN RESPONSE: Based on the clinical findings in the record, please respond to the query above on this document as an addendum. Physician Response: Physician Response 1 If you have questions please contact: Flight Security Specialist: Ext: Thank you for your time and cooperation. Clinical Strap Buckler Machine/Flight Security Specialist This is a permanent part of the medical record LALY MORRISON Feb 26, 2022 10:30 FINA WILSON DO Feb 26, 2022 17:32
--- NOTE | 2022-02-26 10:31 | Cardiology Progress Note ---
Subjective Date Seen by Provider: Feb 26, 2022 Time Seen by Provider: 10:31 Subjective/Events-last exam Patient was seen at bedside, sitting comfortably, feeling well. No new complaint Review of Systems General: No Chills, No Night Sweats, No Fatigue, No Malaise, No Appetite, No Other HEENT: No Head Aches, No Visual Changes, No Eye Pain, No Ear Pain, No Dysphasia, No Sinus Congestion, No Post Nasal Drip, No Sore Throat, No Other Pulmonary: No Dyspnea, No Cough, No Pleuritic Chest Pain, No Other Cardiovascular: No: Chest Pain, Palpitations, Orthopnea, Paroxysmal Noc. Dyspnea, Edema, Lt Headedness, Other Focused Exam Lactate Level 02/24/22 01:57: Lactic Acid Level 2.40*H 02/24/22 03:40: Lactic Acid Level 2.28*H 02/24/22 06:11: Lactic Acid Level 1.27 Time of Focused Exam: 01:40 Objective-Cardiology Exam Last Set of Vital Signs Vital Signs 02/25/22 02/26/22 02/26/22 04:32 07:10 07:43 Temp 36.0 Pulse 63 Resp 18 B/P (MAP) 136/72 (93) Pulse Ox 93 O2 Delivery Room Air O2 Flow Rate 0.00 FiO2 35 I&O Intake and Output 02/26/22 00:00 Intake Total 5420 ml Output Total 3325 ml Balance 2095 ml Intake Oral 3020 ml IV Total 2400 ml Output Urine Total 3325 ml # Voids 1 # Bowel Movements 1 General: Alert, Oriented X3, Cooperative HEENT: Atraumatic, PERRLA Neck: Supple, No JVD, No Thyromegaly Lungs: Clear to Auscultation, Normal Air Movement Heart: Regular Rate, Normal S1, Normal S2, No Murmurs Abdomen: Normal Bowel Sounds, Soft, No Tenderness, No Hepatosplenomegaly, No Masses Extremities: No Clubbing, No Cyanosis, No Edema, Normal Pulses, No Tenderness/Swelling Skin: No Rashes, No Breakdown, No Significant Lesion Neuro: Normal Gait, Normal Speech, Strength at 5/5 X4 Ext, Normal Tone, Sensation Intact Psych/Mental Status: Mental Status NL, Mood NL Results Lab Laboratory Tests 02/26/22 06:19 A/P-Cardiology Admission Diagnosis Sepsis Paroxysmal atrial fibrillation Hypertension Diabetes mellitus Assessment/Plan Status post sepsis, fever with elevated lactic acid. Patient was having significant dyspnea on arrival to the emergency room Chest x-ray was normal CT of the chest showed some lymphadenopathy. Patient is receiving antibiotic and reporting improvement, managed by medical team. Paroxysmal atrial fibrillation, currently in sinus rhythm. Patient had history of atrial fibrillation and has been compliant with his medication. [id number] score 3, maintained on Xarelto. Hypertension, continue to monitor blood pressure Diabetes mellitus, managed by primary care team COPD/obstructive sleep apnea, has been using CPAP. Mild bilateral carotid stenosis, ultrasound was done in August 2021 Obesity, BMI 46. History of peripheral edema, chronic. Okay for discharge from cardiology standpoint CAROLINE MOISE MD Feb 26, 2022 10:31
--- NOTE | 2022-02-26 10:47 | Physical Therapy Progress Note ---
Therapy Progress Note Patient up independently and declined PT intervention. Nursing notified. No skilled PT indicated. 1 visit DONOVAN BARRY PT Feb 26, 2022 10:47
[2022-02-26] MEDS ORDERED: AMLO-251 PO (11:24)
[2022-02-26] MEDS ORDERED: CEFD300C3 PO (11:24)
--- NOTE | 2022-02-26 11:25 | Discharge Summary ---
Discharge Summary Hospital Course Was the Problem List Reviewed?: Yes Problems/Dx: (1) Respiratory distress, acute Status: Acute Hospital Course Date of Admission: Feb 24, 2022 at 05:05 Admission Diagnosis : Family Physician/Provider: Kumar Covarrubias MD Date of Discharge: 02/26/22 Discharge Diagnosis: [ ] Hospital Course: Hospital Course: Mr. Hawk, 56 YO M with hx of sleep apnea and paroxysmal A-fib, was admitted to ICU for acute respiratory distress and sepsis. He presented to the ED on 02/24 with fever, chills, SOB, body aches and rigors after working with [employer] earlier that day. He normally wears BIPAP at night. He was found to be in acute respiratory failure with severe sepsis (lactic acid of 2.5). In ED he was started on zosyn, methylprednisone, and duonebs, then placed on BIPAP in the ICU. D-dimer and CTA were negative for evidence of PE. He was switched to doxycycline and ceftriaxone in ICU, tolerated well and moved to the floor on 02/25. Steroids were discontinued, switched to cefdinir (300 mg BID) and he only wore BIPAP at night, otherwise oxygenated well on RA. Upon discharge he is asymptomatic with vitals stable and improved labs. Instructed the pt to continue the cefdinir for x 3 more days. He is to follow up with Dr. Ellison as outpatient in x 2 weeks. Pt stable for d/c. ANTOINETTE JESUS Feb 26, 2022 12:29 Labs and Pending Lab Test: Laboratory Tests 02/25/22 16:45: Glucometer 265H 02/25/22 20:30: Glucometer 343H 02/26/22 05:20: Glucometer 232H 02/26/22 06:19: White Blood Count 22.2H, Red Blood Count 4.29L, Hemoglobin 11.3L, Hematocrit 35L , Mean Corpuscular Volume 82, Mean Corpuscular Hemoglobin 26, Mean Corpuscular Hemoglobin Concent 32, Red Cell Distribution Width 14.6H, Platelet Count 214, Mean Platelet Volume 10.4, Immature Granulocyte % (Auto) 1, Neutrophils (%) (Auto) 87H, Lymphocytes (%) (Auto) 8L, Monocytes (%) (Auto) 5, Eosinophils (%) (Auto) 0, Basophils (%) (Auto) 0, Neutrophils # (Auto) 19.1H, Lymphocytes # (Auto) 1.8, Monocytes # (Auto) 1.0, Eosinophils # (Auto) 0.0, Basophils # (Auto) 0.0, Immature Granulocyte # (Auto) 0.2H, Sodium Level 136, Potassium Level 4.7, Chloride Level 105, Carbon Dioxide Level 23, Anion Gap 8, Blood Urea Nitrogen 27H, Creatinine 1.35H, Estimat Glomerular Filtration Rate 62, BUN/Creatinine Ratio 20, Glucose Level 259H, Calcium Level 8.5, Corrected Calcium 9.1, Magnesium Level 2.4, Total Bilirubin 0.4, Aspartate Amino Transf (AST/SGOT) 21, Alanine Aminotransferase (ALT/SGPT) 42, Alkaline Phosphatase 47, Total Protein 6.4, Albumin 3.3 02/26/22 10:55: Glucometer 242H Microbiology 02/24/22 Blood Culture - Preliminary, Resulted No growth Home Meds Active Reported Celecoxib 200 Mg Capsule 200 Mg PO DAILY Magnesium (Magnesium Citrate and Oxide) 250 Mg Capsule 500 Mg PO HS Aspirin EC (Aspirin) 81 Mg Tablet.dr 81 Mg PO DAILY Metformin HCl 500 Mg Tablet 500 Mg PO BID Allopurinol 300 Mg Tablet 300 Mg PO DAILY Fenofibrate (Fenofibrate Nanocrystallized) 145 Mg Tablet 145 Mg PO DAILY Multivitamin 1 Each Tablet 1 Each PO HS Pravastatin Sodium 20 Mg Tablet 20 Mg PO DAILY Multaq (Dronedarone HCl) 400 Mg Tablet 400 Mg PO BID Xarelto (Rivaroxaban) 20 Mg Tablet 20 Mg PO HS Losartan Potassium 25 Mg Tablet 25 Mg PO HS Torsemide 20 Mg Tablet 60 Mg PO DAILY TAKES 3 (20MG) TABS Coreg (Carvedilol) 25 Mg Tab 25 Mg PO BID Amlodipine Besylate 10 Mg Tablet 10 Mg PO HS Assessment/Pt Instructions Dr. Ellison in 2 weeks Discharge Planning: <30 minutes discharge planning Discharge Instructions Activity as Tolerated: Yes Discharge Physical Examination Vital Signs Vital Signs Date Time Temp Pulse Resp B/P (MAP) Pulse Ox O2 Delivery O2 Flow Rate FiO2 02/26/22 10:59 93 Room Air 0.00 02/26/22 07:43 36.0 63 18 136/72 (93) 02/25/22 04:32 35 General Appearance: No Apparent Distress, WD/WN, Chronically ill, Obese Respiratory: Lungs Clear Neurologic/Psychiatric: Alert, Oriented x3, No Motor/Sensory Deficits, Normal Mood/Affect Allergies: Coded Allergies: cyclobenzaprine (Verified Allergy, Mild, ITCHING, 07/02/19) lisinopril (Verified Allergy, Mild, COUGH, 07/02/19) Discharge Summary Date of Admission Feb 24, 2022 at 05:05 Date of Discharge Discharge Date: Feb 26, 2022 Admission Diagnosis Assessment: Acute respiratory failure Suspect obesity hypoventilation syndrome SIMONA on biPAP Obesity BMI 46 HTN AF Plan: O2 BiPAP Cardiology ICU Discharge Diagnosis Transfer to floor today FINA WILSON DO Feb 26, 2022 11:25
[2022-02-26 11:37] VITALS: BP 129/72
--- NOTE | 2022-02-26 12:29 | Progress Note ---
ANTOINETTE JESUS 02/26/22 1229: Progress Note Pt improved, walking around room, ready for dismissal. He wore bipap over night (as b/l) and was oxygenating well on RA. He is continent of urine and stool. Denies fever, chills, N/V/D, CP, or any other sx. Hospital Course: Mr. Hawk, 56 YO M with hx of sleep apnea and paroxysmal A-fib, was admitted to ICU for acute respiratory distress and sepsis. He presented to the ED on 02/24 with fever, chills, SOB, body aches and rigors after working with [employer] earlier that day. He normally wears BIPAP at night. He was found to be in acute respiratory failure with severe sepsis (lactic acid of 2.5). In ED he was started on zosyn, methylprednisone, and duonebs, then placed on BIPAP in the ICU. D-dimer and CTA were negative for evidence of PE. He was switched to doxycycline and ceftriaxone in ICU, tolerated well and moved to the floor on 02/25. Steroids were discontinued, switched to cefdinir (300 mg BID) and he only wore BIPAP at night, otherwise oxygenated well on RA. Upon discharge he is asymptomatic with vitals stable and improved labs. Instructed the pt to continue the cefdinir for x 3 more days. He is to follow up with Dr. Ellison as outpatient in x 2 weeks. Pt stable for d/c. ANA ROSA WILSON DO 02/27/22 0502: Supervisory-Addendum Brief Verification & Attestation Participated in pt care: history, MDM, physical Personally performed: exam, history, MDM, supervision of care Care discussed with: Medical Student Procedures: n/a Results interpretation: Verified all documentation Verification and Attestation of Medical Student E/M Service A medical student performed and documented this service in my presence. I reviewed and verified all information documented by the medical student and made modifications to such information, when appropriate. I personally performed the physical exam and medical decision making. Ana Rosa Wilson, Feb 27, 2022,05:02 ANTOINETTE JESUS Feb 26, 2022 12:29 ANA ROSA WILSON DO Feb 27, 2022 05:02
== END 2022-02-26 13:45 | disposition home or self-care (01) | DRG 871 ==
LOC: EDUNIT# 01:37 → ER FS 01:42 → ICU 05:05 → 4TH 02-25 13:15
PROVIDERS: ADMIT Internal Medicine; ATTEND Internal Medicine
PROC: 5A09357 Assistance with Respiratory Ventilation, Less than 24 Consecutive Hours, Continuous Positive Airway Pressure (ICD-10-PCS; principal; 2022-02-24)
DX: A41.9 Sepsis, unspecified organism (principal); J96.01 Acute respiratory failure with hypoxia; Z68.42 Body mass index [BMI] 45.0-49.9, adult; E66.2 Morbid (severe) obesity with alveolar hypoventilation; E87.3 Alkalosis; N17.9 Acute kidney failure, unspecified; I48.0 Paroxysmal atrial fibrillation; R65.20 Severe sepsis without septic shock; I10 Essential (primary) hypertension; Z79.82 Long term (current) use of aspirin; Z79.899 Other long term (current) drug therapy; K21.9 Gastro-esophageal reflux disease without esophagitis; M19.90 Unspecified osteoarthritis, unspecified site; Z20.822 Contact with and (suspected) exposure to COVID-19; J98.01 Acute bronchospasm; B34.9 Viral infection, unspecified; E78.00 Pure hypercholesterolemia, unspecified; J06.9 Acute upper respiratory infection, unspecified; I65.23 Occlusion and stenosis of bilateral carotid arteries; E11.9 Type 2 diabetes mellitus without complications; J44.9 Chronic obstructive pulmonary disease, unspecified
CPT/HCPCS: 36415; 71045; 71275; 80053; 81000; 82805; 82947; 83605; 83735; 83880; 84100; 84484; 85007; 85025; 85027; 85379; 87040; 87636; 93005; 93041; 93306; 94640; 94660; 94760; 99291

== ENCOUNTER 2022-10-06 03:35 | Inpatient (IN) | payer BC ==
[~2022-10-06] VITALS: Ht 177 cm; Wt 163.0 kg
[2022-10-06] VITALS (7 sets, daily range): BP systolic 134–174; BP diastolic 64–86
[~2022-10-06 03:35] MED LIST changes: +ALLO300T2 PO; +ASPI-1238 PO; +CEFD300C3 PO; +CELE-63 PO; +DRON400T6 PO; +FENO145T26 PO; +LOSA25TA41 PO; +MAGN250C PO; +METF-397 PO; +MULT-1136 PO; +PRAV20TA3 PO; +RIVA20TA PO
[2022-10-06] MEDS ORDERED: ACETAMINOPHEN 325 MG TABLET PO STA (03:43)
[2022-10-06] MEDS ORDERED: NS IV 1000 ML 1,000 ML IV STA ×3 (03:47→05:27)
[2022-10-06] MEDS ORDERED: RT-ALBUTEROL/IPRATROPIUM 3 ML (DUONEB) VIAL INH STA (03:50)
[2022-10-06] MEDS ORDERED: CEFEPIME INJECTION 1,000 MG in NS (IVPB) 50 ML IV STA (03:50)
--- NOTE | 2022-10-06 04:01 | ED Fever ---
History of Present Illness General Stated Complaint: SOB Source: patient, old records (Reviewed notes from admission February [address] Wilson and inspector assemblies and installations Dr. Ellison), spouse Exam Limitations: clinical condition (short of breath with rigors) History of Present Illness Date Seen by Provider: October 06, 2022 Time Seen by Provider: 03:35 Initial Comments 57-year-old morbidly obese male presenting with sudden onset of chills, rigors, shortness of breath, body aches. He reports being on antibiotics and just being started on cephalexin yesterday, October 05, for an infection in his leg. He has obstructive sleep apnea and paroxysmal atrial fibrillation. He wears CPAP at night. Even with the CPAP he woke up feeling short of breath and having chills. He did not take his temperature at home. He was finally able to get his awake and had her drive him to the emergency department. He reports having similar presentation and February and he had sepsis. He denies having asthma or COPD. He is coughing and reports he occasionally can get some sputum to come up. He denies taking any breathing treatments or inhalers. 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: none Associated Symptoms: No abdominal pain, No chest pain, No confusion; cough, diaphoresis; No headache; muscle aches; No nausea/vomiting, No rash; shortness of breath; No sore throat, No syncope; weakness Allergies and Home Medications Allergies Coded Allergies: cyclobenzaprine (Verified Allergy, Mild, ITCHING, 07/02/19) lisinopril (Verified Allergy, Mild, COUGH, 07/02/19) Patient Home Medication List Home Medication List Reviewed: Yes Allopurinol (Allopurinol) 300 Mg Tablet, 300 MG PO DAILY, (Reported) Entered as Reported by: HILDA SALGADO on 02/24/22 1335 Amlodipine Besylate (Amlodipine Besylate) 10 Mg Tablet, 10 MG PO HS Prescribed by: FINA WILSON on 02/26/22 1124 Aspirin (Aspirin EC) 81 Mg Tablet.dr, 81 MG PO DAILY, (Reported) Entered as Reported by: HILDA SALGADO on 02/24/22 1335 Carvedilol (Coreg) 25 Mg Tab, 25 MG PO BID, (Reported) Entered as Reported by: KP CASTRO on 12/02/18 1347 Cefdinir (Cefdinir) 300 Mg Capsule, 300 MG PO BID Prescribed by: FINA WILSON on 02/26/22 1124 Celecoxib (Celecoxib) 200 Mg Capsule, 200 MG PO DAILY, (Reported) Entered as Reported by: HILDA SALGADO on 02/24/22 133 Dronedarone HCl (Multaq) 400 Mg Tablet, 400 MG PO BID, (Reported) Entered as Reported by: SUHA RIOS on 02/24/22 032 Fenofibrate Nanocrystallized (Fenofibrate) 145 Mg Tablet, 145 MG PO DAILY, (Reported) Entered as Reported by: HILDA SALGADO on 02/24/22 133 Losartan Potassium (Losartan Potassium) 25 Mg Tablet, 25 MG PO HS, (Reported) Entered as Reported by: SUHA RIOS on 02/24/22 032 Magnesium Citrate and Oxide (Magnesium) 250 Mg Capsule, 500 MG PO HS, (Reported) Entered as Reported by: HILDA SALGADO on 02/24/22 133 Metformin HCl (Metformin HCl) 500 Mg Tablet, 500 MG PO BID, (Reported) Entered as Reported by: HILDA SALGADO on 02/24/22 133 Multivitamin (Multivitamin) 1 Each Tablet, 1 EACH PO HS, (Reported) Entered as Reported by: HILDA SALGADO on 02/24/221334 Pravastatin Sodium (Pravastatin Sodium) 20 Mg Tablet, 20 MG PO DAILY, (Reported) Entered as Reported by: SUHA RIOS on 02/24/22 0404 Rivaroxaban (Xarelto) 20 Mg Tablet, 20 MG PO HS, (Reported) Entered as Reported by: SUHA RIOS on 02/24/22 032 Torsemide (Torsemide) 20 Mg Tablet, 60 MG PO DAILY, (Reported) Entered as Reported by: LAMONTE WHITTAKER on 07/02/19 369 Review of Systems Review of Systems Constitutional: chills, diaphoresis, fever, malaise, weakness EENTM: No nose congestion, No throat pain Respiratory: cough, dyspnea on exertion, phlegm, short of breath; No stridor; wheezing Cardiovascular: No chest pain; palpitations Gastrointestinal: No abdominal pain, No nausea, No vomiting Genitourinary: No dysuria Musculoskeletal: see HPI (Generalized body aches with rigors and chills) Skin: change in color (Some erythema to the lower extremity left greater than right ) Psychiatric/Neurological: Anxiety Hematologic/Lymphatic: Denies Blood Clots (On Xarelto) Past Rhphxmn-[id number]-[id number] Hx Patient Social History Tobacco Use?: Yes Smokeless Tobacco Frequency: Current Everyday User Use of E-Cig and/or Vaping dev: No Substance use?: No Immunizations Up To Date Tetanus Booster (TDap): More than 5yrs Seasonal Allergies Seasonal Allergies: No Past Medical History Surgery/Hospitalization HX: Paroxysmal atrial fibrillation, hypertension, high cholesterol, obstructive sleep apnea, cholecystectomy, vasectomy, GERD, diabetes mellitus without long-term use of insulin, chronic peripheral edema on Lasix Surgeries: Yes (3 neck surgeries, SHOULDER, ) Gallbladder, Vasectomy Respiratory: Yes Sleep Apnea Currently Using CPAP: No Currently Using BIPAP: Yes Cardiac: Yes (PASSED STRESS TEST 2018) Atrial Fibrillation, High Cholesterol, Hypertension Neurological: No Sexually Transmitted Disease: No HIV/AIDS: No Genitourinary: No Gastrointestinal: Yes Gastroesophageal Reflux Musculoskeletal: Yes Arthritis Endocrine: Yes Diabetes, Non-Insulin dep HEENT: No Loss of Vision: Denies Hearing Impairment: Denies Cancer: No Psychosocial: No Integumentary: No Blood Disorders: No Adverse Reaction/Blood Tranf: No (N/A) Family Medical History Cardiovascular disease 19 MOTHER Diabetes mellitus 19 FATHER Hypertension 19 FATHER 19 MOTHER G8 BROTHER Myocardial infarction 19 MOTHER Respiratory disorder 19 MOTHER Physical Exam Vital Signs - First Documented 10/06/22 03:36 Temp 38.2 Pulse 102 Resp 50 B/P (MAP) 174/86 (115) Pulse Ox 95 O2 Delivery Nasal Cannula O2 Flow Rate 2.00 Capillary Refill : Height: 5'11.00" Weight: 318lbs. 0.0oz. [id number]; 50.99 BMI Method:Stated General Appearance: moderate distress (Patient is anxious and working hard to breathe. He is having rigors and shaking.), obese HEENT: PERRL/EOMI, pharynx normal Neck: non-tender, full range of motion, supple Respiratory: chest non-tender, respiratory distress, decreased breath sounds, accessory muscle use; No rales, No rhonchi, No stridor; wheezing Cardiovascular: normal peripheral pulses, regular rate, rhythm Gastrointestinal: normal bowel sounds, non tender, soft, no pulsatile mass Extremities: normal range of motion, non-tender, normal capillary refill, pedal edema (1+ bilateral lower extremity edema. His some chronic venous stasis appearing erythema to the lower extremities left greater than right.) Neurologic/Psychiatric: bi analyst II-XII nml as tested, no motor/sensory deficits, alert; No normal mood/affect (Anxious); oriented x 3 Skin: normal color, warm/dry Focused Exam Sepsis Stage: Sepsis Possible Source: Pulmonary Lactate Level 10/06/22 04:15: Lactic Acid Level 2.25*H 10/06/22 06:15: Lactic Acid Level 1.97 Time of Focused Exam: 05:31 Respiratory: Chest Non Tender, Accessory Muscle Use, Decreased Breath Sounds, Respiratory Distress; No Rhonci, No Stridor; Wheezing (improved wheezing from initial presentation) Cardiovascular: Regular Rate, Rhythm, Normal Peripheral Pulses Capillary Refill: Less Than 3 Seconds Peripheral Pulses: 2+ Carotid (R), 2+ Carotid (L), 2+ Radial Pulses (R), 2+ Radial Pulses (L) Skin: normal color, warm/dry Lactic Acid Level Laboratory Tests Test 10/06/22 04:15 10/06/22 06:15 Lactic Acid Level 2.25 MMOL/L (0.50-2.00) *H 1.97 MMOL/L (0.50-2.00) Within 3hrs of presentation: Admin fluids, Admin 30ml/kg IBW due to BMI>30, Admin ABX, Blood cultures prior to ABX's, Focus exam, Lactate level Progress/Results/Core Measures Suspected Sepsis SIRS Temperature: Pulse: Respiratory Rate: Laboratory Tests 10/06/22 04:15: White Blood Count 18.0H Blood Pressure / Mean: 10/06/22 04:15: Lactic Acid Level 2.25*H 10/06/22 06:15: Lactic Acid Level 1.97 Laboratory Tests 10/06/22 04:15: Creatinine 1.25, INR Comment 1.5H, Platelet Count 237, Total Bilirubin 0.5 Results/Orders Lab Results Laboratory Tests Test 10/06/22 04:09 10/06/22 04:15 10/06/22 04:40 10/06/22 06:15 Range/Units Influenza Type A (RT-PCR) Not Detected Not Detecte Influenza Type B (RT-PCR) Not Detected Not Detecte SARS-CoV-2 RNA (RT-PCR) Not Detected Not Detecte White Blood Count 18.0 H 4.3-11.0 10^3/uL Red Blood Count 5.06 4.30-5.52 10^6/uL Hemoglobin 13.5 13.3-17.7 g/dL Hematocrit 42 40-54 % Mean Corpuscular Volume 82 80-99 fL Mean Corpuscular Hemoglobin 27 25-34 pg Mean Corpuscular Hemoglobin Concent 33 32-36 g/dL Red Cell Distribution Width 14.4 10.0-14.5 % Platelet Count 237 130-400 10^3/uL Mean Platelet Volume 10.5 9.0-12.2 fL Immature Granulocyte % (Auto) 0 % Neutrophils (%) (Auto) 79 H 42-75 % Lymphocytes (%) (Auto) 14 12-44 % Monocytes (%) (Auto) 5 0-12 % Eosinophils (%) (Auto) 1 0-10 % Basophils (%) (Auto) 1 0-10 % Neutrophils # (Auto) 14.3 H 1.8-7.8 10^3/uL Lymphocytes # (Auto) 2.5 1.0-4.0 10^3/uL Monocytes # (Auto) 0.8 0.0-1.0 10^3/uL Eosinophils # (Auto) 0.2 0.0-0.3 10^3/uL Basophils # (Auto) 0.1 0.0-0.1 10^3/uL Immature Granulocyte # (Auto) 0.1 0.0-0.1 10^3/uL Neutrophils % (Manual) 62 % Lymphocytes % (Manual) 9 % Monocytes % (Manual) 7 % Eosinophils % (Manual) 2 % Metamyelocytes % 1 % Myelocytes % 1 % Band Neutrophils 12 % Atypical Lymphocytes 2 % Reactive Lymphocytes 4 % Platelet Estimate NORMAL Blood Morphology Comment NORMAL Prothrombin Time 18.2 H 12.2-14.7 SEC INR Comment 1.5 H 0.8-1.4 Activated Partial Thromboplast Time 44 H 24-35 SEC D-Dimer 0.26 0.00-0.49 UG/ML Blood Gas Puncture Site LT. RADIAL Blood Gas Patient Temperature 38.2 Arterial Blood pH 7.38 7.37-7.43 Arterial Blood Partial Pressure CO2 45 35-45 MMHG Arterial Blood Partial Pressure O2 72 L 79-93 MMHG Arterial Blood HCO3 26 23-27 MMOL/L Arterial Blood Total CO2 27.0 21.0-31.0 MMOL/L Arterial Blood Oxygen Saturation 94 94-100 % Arterial Blood Base Excess 1.0 -2.5-2.5 MMOL/L Suresh Test OK Blood Gas Ventilator Setting NO Blood Gas Inspired Oxygen 2 L Sodium Level 141 135-145 MMOL/L Potassium Level 3.9 3.6-5.0 MMOL/L Chloride Level 101 98-107 MMOL/L Carbon Dioxide Level 28 21-32 MMOL/L Anion Gap 12 5-14 MMOL/L Blood Urea Nitrogen 15 7-18 MG/DL Creatinine 1.25 0.60-1.30 MG/DL Estimat Glomerular Filtration Rate 68 BUN/Creatinine Ratio 12 Glucose Level 172 H 70-105 MG/DL Lactic Acid Level 2.25 *H 1.97 0.50-2.00 MMOL/L Calcium Level 9.5 8.5-10.1 MG/DL Corrected Calcium 9.2 8.5-10.1 MG/DL Total Bilirubin 0.5 0.1-1.0 MG/DL Aspartate Amino Transf (AST/SGOT) 60 H 5-34 U/L Alanine Aminotransferase (ALT/SGPT) 90 H 0-55 U/L Alkaline Phosphatase 91 40-136 U/L Troponin I < 0.30 <0.30 NG/ML C-Reactive Protein 0.96 H <0.50 MG/DL Pro-B-Type Natriuretic Peptide 132.4 H <125.0 PG/ML Total Protein 7.7 6.4-8.2 GM/DL Albumin 4.4 3.2-4.5 GM/DL Urine Color YELLOW Urine Clarity CLEAR Urine pH 7.0 5-9 Urine Specific [place] 1.015 L 1.016-1.022 Urine Protein 2+ H NEGATIVE Urine Glucose (UA) NEGATIVE NEGATIVE Urine Ketones NEGATIVE NEGATIVE Urine Nitrite NEGATIVE NEGATIVE Urine Bilirubin NEGATIVE NEGATIVE Urine Urobilinogen 0.2 < = 1.0 MG/DL Urine Leukocyte Esterase NEGATIVE NEGATIVE Urine RBC (Auto) TRACE-I H NEGATIVE Urine RBC 0-2 /HPF Urine WBC RARE /HPF Urine Squamous Epithelial Cells RARE /HPF Urine Crystals NONE /LPF Urine Bacteria NEGATIVE /HPF Urine Casts NONE /LPF Urine Mucus NEGATIVE /LPF Urine Culture Indicated NO My Orders Orders - ENNILO FINLEY E MD Acetaminophen Tablet/Caplet (Tylenol T (10/06/22 03:43) Cbc With Automated Diff (10/06/22 03:43) Comprehensive Metabolic Panel (10/06/22 03:43) Blood Culture (10/06/22 03:43) Ua Culture If Indicated (10/06/22 03:43) Chest 1 View Ap/Pa Only (10/06/22 03:43) Ed Iv/Invasive Line Start (10/06/22 03:43) Crp Fs (10/06/22 03:43) Lactic Acid Analyzer (10/06/22 03:43) Arterial Blood Gas (10/06/22 03:43) O2 (10/06/22 03:43) Troponin I Fs (10/06/22 03:43) Probnp Fs (10/06/22 03:43) Ekg Tracing (10/06/22 03:43) Monitor-Rhythm Ecg Trace Only (10/06/22 03:43) Covid 19 Inhouse Test (10/06/22 03:43) Influenza A And B By Pcr (10/06/22 03:43) Isolation Central Supply Req (10/06/22 03:43) Fibrin Degradation Products (10/06/22 03:46) Protime With Inr (10/06/22 03:46) Partial Thromboplastin Time (10/06/22 03:46) Ns Iv 1000 Ml (Sodium Chloride 0.9%) (10/06/22 03:47) Albuterol/Ipra Inhalation Soln (Duoneb I (10/06/22 03:50) Cefepime Injection (Maxipime Injection) (10/06/22 03:50) Svn Small Volume Nebulizer (10/06/22 03:50) Sputum Culture (10/06/22 03:50) Ibuprofen Tablet (Motrin Tablet) (10/06/22 04:48) Ns Iv 1000 Ml (Sodium Chloride 0.9%) (10/06/22 04:48) Manual Differential (10/06/22 04:15) Ns Iv 1000 Ml (Sodium Chloride 0.9%) (10/06/22 05:27) Ed Admission (Communication) (10/06/22 05:46) Bipap (Bilevel) Set Up (10/06/22 05:55) Rt Ed Bilevel Assessment (10/06/22 05:55) Lactated Ringers (Lr 1000 Ml Iv Solution (10/06/22 06:19) Vital Signs/I&O 10/06/22 10/06/22 10/06/22 10/06/22 03:36 03:36 03:37 04:02 Temp 38.2 38.2 Pulse 102 Resp 50 B/P (MAP) 174/86 (115) Pulse Ox 95 89 O2 Delivery Nasal Cannula Nasal Cannula O2 Flow Rate 2.00 2.00 2.00 10/06/22 10/06/22 10/06/22 10/06/22 04:19 04:48 04:53 05:37 Temp 38.9 38.9 39.0 Pulse Ox 95 O2 Delivery Nasal Cannula O2 Flow Rate 2.00 10/06/22 10/06/22 06:15 06:32 Temp 38.8 Pulse 88 Resp 36 Pulse Ox 97 O2 Flow Rate 28.00 Capillary Refill : Progress Note #1: Progress Note Potential diagnosis of sepsis, pneumonia, pulmonary embolism, myocardial infarction, congestive heart failure, electrolyte imbalance, dehydration, viral syndrome, COVID, influenza. Placed on supplemental oxygen at 2 L/min by nasal cannula as his initial O2 sat was 85% on room air. He does have a history of obstructive sleep apnea and wears CPAP at night but does not use oxygen with it. Placed on cardiac quality assurance monitor chassis and on my initial interpretation he has sinus tachycardia with a heart rate of 106. Obtain electrocardiogram to further evaluate his heart rate and rhythm. 1 view chest x-ray to look for signs of pneumonia, pulmonary vascular congestion, mass, cardiomegaly, pleural effusion. Establish peripheral IV access and send labs for complete blood count, comprehensive metabolic pro file, blood cultures, lactic acid, arterial blood gas to further evaluate his ability to oxygenate and exchange CO2, proBNP, troponin, sputum culture, urinalysis, nasal swab for COVID and influenza. Give normal saline 1 L IV fluid bolus for hydration and probable sepsis, acetaminophen 650 mg p.o. x1 for temperature of 38.2 Celsius on arrival. DuoNeb breathing treatment to help with his wheezing and shortness of breath. He has been taking cephalexin that was just started yesterday for leg infection. Will order dose of cefepime presuming that the patient has sepsis Since he has chills, fever, rigors, shortness of breath, tachypnea, hypoxia, tachycardia. Based on his presentation and similarity to when he had sepsis in February 2022 he likely will need admitted to the hospital. We will plan on discussing with hospitalist on-call for [facility], Dr. Wilson after the testing is back and once patient has had a chance to receive treatment and see his response to treatments. Progress Note #2: Time: 04:19 Progress Note On personal interpretation and review of his 1 view chest x-ray I did not appr eciate a pleural effusion. He has possible right lower lobe infiltrate. 0449 ABG on 2 L of supplemental oxygen, nasal cannula shows pH 7.38, PCO2 45, PO2 of 72 with an O2 saturation of 94%. Progress Note #3: Time: 05:04 Progress Note Complete Blood Count came back showing elevated WBC to 18,000. slight left shift with 79% Neutrophils on automated differential. He had his temperature go up to 39.2 so order for additional bag of IVF was ordered and Ibuprofen 800 mg po x 1. 0514 lab called to report his lactic acid was slightly elevated at 2.25. This would go along with the risk of his presentation for sepsis. He is maintaining his oxygen saturation 95% on the 2 L by nasal cannula. His heart rate is 98 in sinus rhythm. His blood pressure is 161/54 currently. He is still breathing about 30 to 35 breaths/min. He did feel like the breathing treatment had helped and he was breathing a little bit easier. He continues to have chills and rigors. They are slowly improving. His coagulation factors were elevated to go along with him being on Xarelto. He has a pro time of 18.2, INR of 1.5, PTT of 49. His D-dimer was negative at 0.26. Progress Note #4: Time: 05:24 Progress Note On his comprehensive metabolic profile is creatinine was slightly elevated at 1.25. He had an elevated glucose of 172. His troponin I was less than 0.3. His proBNP was just above normal at 132.4. His CRP was elevated to 0.96 which was just over 3 times normal. Awaiting swab for COVID and influenza results but otherwise his other tests are back and were indicating sepsis with respiratory distress and hypoxia. He had already been treated with cefepime. Will order a additional liter of normal saline for his sepsis. This brings him to a total of 3 liters. This would be more based off of an ideal body weight rather than actual body weight. Will then continue IVF at 150 mL/hr. 0546 Recheck of patient shows he has improved with treatment and is breathing easier but still tachypneic at 30 breaths per minute. Maintaining oxygen saturation at 95% on 2 Lpm by nmillie. Discussed with Dr. Wilson, golf professional hospitalist for [facility]. She was familiar with the patient from his admit in February 2022 for similar presentation. Reviewed his current presentation with tachypnea, Fever, hypoxia, respiratory distress. Labs and vital signs showing sepsis with WBC 18K, Lactic Acid 2.25, Hypoxia with O2 sat 85% on room air initially. Given Cefepime so far for possible respiratory infection. Since he is still tachypneic will start BiPap as he reports doing well with that in February. Based on review of RT settings he was on inspiratory pressure of 14 and expiratory pressure of 6 in February so will try those settings with FiO2 28% to be equivalent to 2 Lpm as his ABG showed he has a good pH and not retaining CO2. She did request that he be admitted to ICU, especially with plan to use BiPap. She will place queued orders and will anticipate admit after 7 am when an ICU bed becomes available in [place], per the nursing medical billing supervisor, Ashley. His Covid and Influenza Swabs were negative. Will recheck Lactic acid around 615 am. Progress Note #5: Time: 06:44 Progress Note Repeat lactic acid is now down to 1.97. Patient will continue to have lactated Ringer's at 150 mils an hour for now. He is doing well on BiPAP at 28% FiO2 and maintaining O2 saturation of 96 to 97%. His respiratory rate has improved to 22 to 24 breaths a minute. His heart rate has come down to 80 sinus rhythm and blood pressure 147/72. He is assigned ICU bed 9 and [place] and waiting on dayshift to be able to take the patient ECG Initial ECG Impression Date: October 06, 2022 Initial ECG Impression Time: 03:56 Initial ECG Rate: 104 Initial ECG Rhythm: S.Tach Initial ECG Comparisson: Unchanged (Overall appears similar to tracing from February 24, 2022) Comment On my personal interpretation and review his electrocardiogram shows sinus tachycardia with first-degree AV block and a heart rate of 104 bpm. AL interval 212 ms. He has a right bundle branch block. QT interval 323 ms with a QTc interval 384 ms. He has no acute ST elevation. Overall appears similar to tracing from February 24, 2022 Diagnostic Imaging Diagonstic Imaging: Xray Plain Films/CT/US/NM/MRI: chest Comments [facility]. [place], [place] NAME: ELENA APARICIO [facility] REC#: [id number] PT STATUS: REG ER : 1965 PHYSICIAN: NILO GALLO MD ADMIT DATE: 10/06/22/ER FS Signed Date of Exam:10/06/22 CHEST 1 VIEW AP/PA ONLY Indication: Cough and fever Portable chest 4:11 AM Heart size and pulmonary vascularity are normal. Lungs are clear. There are no effusions or pneumothoraces. IMPRESSION: No acute abnormalities in the chest Dictated by: Dictated on workstation # [id number] Dict: 10/06/2239 Trans: 10/06/22539 TCB [id number] Interpreted by: RACHEL BENEDICT MD Electronically signed by: RACHEL BENEDICT MD 10/06/22539 Reviewed: Reviewed by Me Critical Care Note Critical Care Total Time (minutes) 60 minutes Progress I spent at least 60 minutes of critical care time with the patient. Time was excluding separately billable procedures. Time was spent obtaining history from the patient and family and old medical records, ordering tests and reviewing results, ordering interventions and reviewing response, discussion with consultants, documentation of the chart. Patient is at risk of cardiovascular collapse and respiratory failure with his sepsis and respiratory distress with hypoxia. He required my immediate intervention and treatment and monitoring to help stabilize his condition. Departure Communication (Admissions) Time/Spoke to Admitting Phy: [phone] Recheck of patient shows he has improved with treatment and is breathing easier but still tachypneic at 30 breaths per minute. Maintaining oxygen saturation at 95% on 2 Lpm by n.c. Discussed with Dr. Wilson, golf professional hospitalist for [facility]. She was familiar with the patient from his admit in February 2022 for similar presentation. Reviewed his current presentation with tachypnea, Fever, hypoxia, respiratory distress. Labs and vital signs showing sepsis with WBC 18K, Lactic Acid 2.25, Hypoxia with O2 sat 85% on room air initially. Given Cefepime so far for possible respiratory infection. Since he is still tachypneic will start BiPap as he reports doing well with that in February. Based on review of RT settings he was on inspiratory pressure of 14 and expiratory pressure of 6 in February so will try those settings with FiO2 28% to be equivalent to 2 Lpm as his ABG showed he has a good pH and not retaining CO2. She did request that he be admitted to ICU, especially with plan to use BiPap. She will place queued orders and will anticipate admit after 7 am when an ICU bed becomes available in [place], per the nursing medical billing supervisor, Ashley. Impression Primary Impression: Sepsis Qualified Codes: A41.9 - Sepsis, unspecified organism; R65.20 - Severe sepsis without septic shock; J96.01 - Acute respiratory failure with hypoxia Additional Impressions: Fever in adult Respiratory distress Hypoxia Disposition: 30 STILL A PATIENT Condition: Critical Admissions Decision to Admit Reason: Admit from ER (General) Decision to Admit/Date: October 06, 2022 Time/Decision to Admit Time: 05:46 Departure-Patient Inst. Referrals: SELF,TERRA BAINS (PCP/Family) Primary Care Physician NILO GALLO MD October 06, 2022 04:01
[2022-10-06 04:47] LABS: ABG OXYGEN SATURATION 94 % (94-100); ABG PCO2 45 MMHG (35-45); ABG PH 7.38 (7.37-7.43); ABG PO2 72 MMHG (79-93); ALLENS TEST OK; INSPIRED O2 2 L; PATIENT TEMP 38.2; VENTILATOR NO
[2022-10-06] MEDS ORDERED: IBUPROFEN 800 MG (MOTRIN) TAB PO STA (04:48)
[2022-10-06 04:50] LABS: BASOPHILS # (AUTO) 0.1 10^3/uL (0.0-0.1); BASOPHILS % (AUTO) 1 % (0-10); EOSINOPHILS # (AUTO) 0.2 10^3/uL (0.0-0.3); EOSINOPHILS % (AUTO) 1 % (0-10); HEMATOCRIT 42 % (40-54); HEMOGLOBIN 13.5 g/dL (13.3-17.7); LYMPHOCYTES # (AUTO) 2.5 10^3/uL (1.0-4.0); LYMPHOCYTES % (AUTO) 14 % (12-44); MEAN CORPUSCULAR HEMOGLOBIN 27 pg (25-34); MEAN CORPUSCULAR HGB CONC 33 g/dL (32-36); MEAN CORPUSCULAR VOLUME 82 fL (80-99); MEAN PLATELET VOLUME 10.5 fL (9.0-12.2); MONOCYTES # (AUTO) 0.8 10^3/uL (0.0-1.0); MONOCYTES % (AUTO) 5 % (0-12); NEUTROPHILS # (AUTO) 14.3 10^3/uL (1.8-7.8); NEUTROPHILS % (AUTO) 79 % (42-75); PLATELET COUNT 237 10^3/uL (130-400)
[2022-10-06 05:11] LABS: PROTHROMBIN TIME PATIENT 18.2 SEC (12.2-14.7)
[2022-10-06 05:12] LABS: FIBRIN DEGRADATION PRODUCTS 0.26 UG/ML (0.00-0.49); INR 1.5 (0.8-1.4)
[2022-10-06 05:20] LABS: BILIRUBIN,TOTAL 0.5 MG/DL (0.1-1.0); BUN/CREATININE RATIO 12; CALCIUM 9.5 MG/DL (8.5-10.1); CARBON DIOXIDE 28 MMOL/L (21-32); CHLORIDE 101 MMOL/L (98-107); CREATININE SERUM 1.25 MG/DL (0.60-1.30); GFR ESTIMATED 68; GLUCOSE 172 MG/DL (70-105); POTASSIUM 3.9 MMOL/L (3.6-5.0); SODIUM 141 MMOL/L (135-145)
[2022-10-06 05:21] LABS: ALANINE AMINOTRANSFERASE 90 U/L (0-55); ALBUMIN 4.4 GM/DL (3.2-4.5); ALKALINE PHOSPHATASE 91 U/L (40-136); TOTAL PROTEIN 7.7 GM/DL (6.4-8.2)
[2022-10-06 05:28] LABS: BILIRUBIN,URINE NEGATIVE (NEGATIVE); CLARITY,URINE CLEAR; COLOR,URINE YELLOW; GLUCOSE, URINE (UA) NEGATIVE (NEGATIVE); KETONES,URINE NEGATIVE (NEGATIVE); LEUKOCYTE ESTERASE ,URINE NEGATIVE (NEGATIVE); NITRITE,URINE NEGATIVE (NEGATIVE); PROTEIN,URINE 2+ (NEGATIVE)
[2022-10-06 05:31] LABS: ATYPICAL LYMPHOCYTES 2 %; BAND NEUTROPHILS 12 %; EOSINOPHILS % (MANUAL) 2 %; LYMPHOCYTES % (MANUAL) 9 %; METAMYELOCYTES % 1 %; MONOCYTES % (MANUAL) 7 %; MYELOCYTES % 1 %; NEUTROPHILS % (MANUAL) 62 %; PLATELET ESTIMATE NORMAL; RBC MORPH NORMAL; REACTIVE LYMPHOCYTES 4 %
[2022-10-06 05:37] LABS: RBC,URINE 0-2 /HPF
[2022-10-06 05:38] LABS: BACTERIA,URINE NEGATIVE /HPF; SQUAMOUS EPITHELIAL CELL,UR RARE /HPF; WBC,URINE RARE /HPF
--- NOTE | 2022-10-06 05:41 | Diagnostic Imaging Report ---
Indication: Cough and fever Portable chest 4:11 AM Heart size and pulmonary vascularity are normal. Lungs are clear. There are no effusions or pneumothoraces. IMPRESSION: No acute abnormalities in the chest Dictated by: Dictated on workstation # [id number]
[2022-10-06] MEDS ORDERED: LACTATED RINGERS 1,000 ML IV STA (06:19)
[2022-10-06] MEDS ORDERED: CEPH500C PO (07:31)
[2022-10-06] MEDS ORDERED: RT-ALBUTEROL/IPRATROPIUM 3 ML (DUONEB) VIAL INH PRN (09:00)
[2022-10-06] MEDS ORDERED: MELATONIN 3 MG TABLET PO PRN (09:15)
[2022-10-06] MEDS ORDERED: NS IV 500 ML 500 ML IV PRN (09:15)
[2022-10-06] MEDS ORDERED: HYDROmorphone 2 MG/ML VIAL (DILAUDID) IV PRN (09:15)
[2022-10-06] MEDS ORDERED: BISACODYL 10 MG SUPP (DULCOLAX) PR PRN (09:15)
[2022-10-06] MEDS ORDERED: ONDANSETRON 4 MG (ZOFRAN) ORAL DISSOLVE TAB PO PRN (09:15)
[2022-10-06] MEDS ORDERED: polyethylene glycoL POWDER 17 GM (MIRALAX) PACK PO PRN (09:15)
[2022-10-06] MEDS ORDERED: LORazepam 0.5 MG (ATIVAN) TABLET PO PRN (09:15)
[2022-10-06] MEDS ORDERED: diphenhydrAMINE 25 MG TAB (BENADRYL) PO PRN (09:15)
[2022-10-06] MEDS ORDERED: LORazepam INJ 2 MG/ML (ATIVAN) VIAL IVP PRN (09:15)
[2022-10-06] MEDS ORDERED: ONDANSETRON 4 MG/2 ML (SDV) Z0FRAN IV PRN (09:15)
[2022-10-06] MEDS ORDERED: diphenhydrAMINE 50 MG/ML INJ (BENADRYL) IVP PRN (09:15)
[2022-10-06] MEDS ORDERED: NS IV 1000 ML 1,000 ML IV SCH (09:15)
[2022-10-06] MEDS ORDERED: ANTACID SUSP 30 ML UDC (MYLANTA) PO PRN (09:15)
[2022-10-06] MEDS ORDERED: VANCOMYCIN INJECTION 0.1 MG in NS (IVPB) 250 ML IV SCH (09:15)
[2022-10-06] MEDS ORDERED: VANCOMYCIN 2000 MG/NS 500 ML IVPB IV NR ×2 (10:00)
--- NOTE | 2022-10-06 10:37 | Consultation-Cardiology ---
HPI-Cardiology Cardiology Consultation Date of Consultation 10/06/22 Date of Admission Time Seen by Provider: 10:29 Indication: Dyspnea, hx PAF HPI Patient is a 57 y/o male with history of PAF,SIMONA, HTN, HLP. Presented to the ER with suddent onset of shortness of breath, chills, rigors, fever and body ache. Patient reports he was just started on Keflex yesterday for left leg cellulitis. He reports similar presentation in February 2022 when he was hospitalized with sepsis. Upon my evaluation, patient reports he is feeling better. Reports improvement of his dyspnea. Denies any chest pain, dizziness or lightheadedness. States that left leg has been chronically edemetous and erythematous since 2020. Denies any nonhealing wounds or claudication pain. Home Medications & Allergies Allergies: Coded Allergies: cyclobenzaprine (Verified Allergy, Mild, ITCHING, 07/02/19) lisinopril (Verified Allergy, Mild, COUGH, 07/02/19) Home Medication List Reviewed: Yes [id number] Hx Patient Social History Marital Status: Employed/Student: employed Type Used: Smokeless Tobacco 2nd Hand Smoke Exposure: No Recent Hopitalizations: No Have you traveled recently?: Yes Where was recent travel?: [place] Alcohol Use?: No Substance type: Caffeine Immunizations Up To Date Tetanus Booster (TDap): More than 5yrs Date of Influenza Vaccine: May 12, 2020 Past Medical History PAF, HTN, HLP, chronic pedal edema, SIMONA, obesity Family Medical History Family History: Cardiovascular disease 19 MOTHER Diabetes mellitus 19 FATHER Hypertension 19 FATHER 19 MOTHER G8 BROTHER Myocardial infarction 19 MOTHER Respiratory disorder 19 MOTHER Review of Systems-General Review of Systems Constitutional: chills, diaphoresis, fever, malaise, weakness EENTM: No nose congestion, No throat pain Respiratory: cough, dyspnea on exertion, phlegm, short of breath; No stridor; wheezing Cardiovascular: see HPI; No chest pain; edema; No Hx of Intervention, No synco pe, No vascular heart diseas Gastrointestinal: No abdominal pain, No nausea, No vomiting Genitourinary: No dysuria Musculoskeletal: see HPI (Generalized body aches with rigors and chills) Skin: change in color (Some erythema to the lower extremity left greater than right ) Psychiatric/Neurological: Anxiety Reviewed Test Results Reviewed Test Results Lab Laboratory Tests 10/06/22 04:09: Influenza Type A (RT-PCR) Not Detected, Influenza Type B (RT-PCR) Not Detected, SARS-CoV-2 RNA (RT-PCR) Not Detected 10/06/22 04:15: White Blood Count 18.0H, Red Blood Count 5.06, Hemoglobin 13.5, Hematocrit 42, Mean Corpuscular Volume 82, Mean Corpuscular Hemoglobin 27, Mean Corpuscular Hemoglobin Concent 33, Red Cell Distribution Width 14.4, Platelet Count 237, Mean Platelet Volume 10.5, Immature Granulocyte % (Auto) 0, Neutrophils (%) (Auto) 79H, Lymphocytes (%) (Auto) 14, Monocytes (%) (Auto) 5, Eosinophils (%) (Auto) 1, Basophils (%) (Auto) 1, Neutrophils # (Auto) 14.3H, Lymphocytes # (Auto) 2.5, Monocytes # (Auto) 0.8, Eosinophils # (Auto) 0.2, Basophils # (Auto) 0.1, Immature Granulocyte # (Auto) 0.1, Neutrophils % (Manual) 62, Lymphocytes % (Manual) 9, Monocytes % (Manual) 7, Eosinophils % (Manual) 2, Metamyelocytes % 1, Myelocytes % 1, Band Neutrophils 12, Atypical Lymphocytes 2, Reactive Lymphocytes 4, Platelet Estimate NORMAL, Blood Morphology Comment NORMAL, Prothrombin Time 18.2H, INR Comment 1.5H, Activated Partial Thromboplast Time 44H, D-Dimer 0.26, Blood Gas Puncture Site LT. RADIAL, Blood Gas Patient Temperature 38.2, Arterial Blood pH 7.38, Arterial Blood Partial Pressure CO2 45, Arterial Blood Partial Pressure O2 72L, Arterial Blood HCO3 26, Arterial Blood Total CO2 27.0, Arterial Blood Oxygen Saturation 94, Arterial Blood Base Excess 1.0, Suresh Test OK, Blood Gas Ventilator Setting NO, Blood Gas Inspired Oxygen 2 L, Sodium Level 141, Potassium Level 3.9, Chloride Level 101, Carbon Dioxide Level 28, Anion Gap 12, Blood Urea Nitrogen 15, Creatinine 1.25, Estimat Glomerular Filtration Rate 68, BUN/Creatinine Ratio 12, Glucose Level 172H, Lactic Acid Level 2.25*H, Calcium Level 9.5, Corrected Calcium 9.2, Total Bilirubin 0.5, Aspartate Amino Transf (AST/SGOT) 60H, Alanine Aminotransferase (ALT/SGPT) 90H, Alkaline Phosphatase 91, Troponin I < 0.30, C-Reactive Protein 0.96H, Pro-B-Type Natriuretic Peptide 132.4H, Total Protein 7.7, Albumin 4.4 10/06/22 04:40: Urine Color YELLOW, Urine Clarity CLEAR, Urine pH 7.0, Urine Specific [place] 1.015L, Urine Protein 2+H, Urine Glucose (UA) NEGATIVE, Urine Ketones NEGATIVE, Urine Nitrite NEGATIVE, Urine Bilirubin NEGATIVE, Urine Urobilinogen 0.2, Urine Leukocyte Esterase NEGATIVE, Urine RBC (Auto) TRACE-IH, Urine RBC 0-2, Urine WBC RARE, Urine Squamous Epithelial Cells RARE, Urine Crystals NONE, Urine Bacteria NEGATIVE, Urine Casts NONE, Urine Mucus NEGATIVE, Urine Culture Indicated NO 10/06/22 06:15: Lactic Acid Level 1.97 ECG Impression ECG Initial ECG Rhythm: Normal Sinus Physical Exam Physical Exam Vital Signs Vital Signs - First Documented 10/06/22 10/06/22 03:36 09:05 Temp 38.2 Pulse 102 Resp 50 B/P (MAP) 174/86 (115) Pulse Ox 95 O2 Delivery Nasal Cannula O2 Flow Rate 2.00 FiO2 21 Capillary Refill : Less Than 3 Seconds Height, Weight, BMI Height: 5'11.00" Weight: 318lbs. 0.0oz. 144.442014by; 52.02 BMI Method:Stated General Appearance: No Apparent Distress, WD/WN Respiratory: Chest Non Tender, Accessory Muscle Use, Decreased Breath Sounds; No Rhonci, No Stridor; Wheezing (improved wheezing from initial presentation) Cardiovascular: Regular Rate, Rhythm, Normal Peripheral Pulses Extremity: Pedal Edema, Other (Chronic venous stasis changes on the lower extremities) A/P-Cardiology Admission Diagnosis Sepsis Acute respiratory distress PAF HTN Assessment/Plan Sepsis, fever with elevated lactic acid. Patient was having significant dyspnea on arrival to the emergency room Chest x-ray was normal Patient is receiving antibiotic, IVF. Acute respiratory distress, improved. Patient reports significant improvement. Currently on room air. Peripheral edema, worsening orthopnea I will start diuresis and monitor tolerance and response 2D echo was done on October 06, 2022 showing normal LV size and systolic function, normal ejection fraction 60 to 65%, PA pressure 30 to 35 mmHg. Paroxysmal atrial fibrillation, currently in sinus rhythm. Patient had history of atrial fibrillation and has been compliant with his medication. Has been maintained on Multaq and Xarelto [id number] score 3, maintained on Xarelto. Left leg cellulitis, recently started on antibiotics as outpatient. Patient reports chronic left leg erythema and edema since 2020 and has had w/u with PCP. Hypertension, restart home blood pressure medications and continue to monitor. Diabetes mellitus, managed by primary care team COPD/obstructive sleep apnea, has been using CPAP. Mild bilateral carotid stenosis, ultrasound was done in August 2021 Obesity History of peripheral edema, chronic. Thank you for allowing us to participate in the management of Mr. Hawk. This is Jeanette Brown PA-C, as a scribe for Dr. Ellison. Patient was seen and evaluated with Jeanette, I interviewed and examined the patient, discussed the management plan and agree with the current scribed note Made few modification using Italic font Patient admitted for fever and sepsis, started septic work-up and empiric antibiotic initiated Initially was receiving IV fluid, currently having worsening dyspnea, orthopnea We will start on diuretic and monitor tolerance and response Restart home medication and monitor blood pressure. JEANETTE FULLER October 06, 2022 10:37 CAROLINE ELLISON MD October 06, 2022 15:34
--- NOTE | 2022-10-06 10:51 | History & Physical ---
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 Patient required BiPAP. ABG and labs drawn showing sepsis from pneumonia. He feels much better. I have reviewed and restarted his home medication and sent him to the floor from ICU since he is no longer requiring BiPAP. Source: patient Exam Limitations: no limitations Date Seen 10/06/22 Time Seen by a Provider: 11:00 Attending Physician Kumar Covarrubias MD PCP Admitting Physician: Fina Zaidi DO Attending Physician: Fina Zaidi DO Referring Physician Date of Admission October 06, 2022 at 08:51 Home Medications & Allergies Home Medications Reviewed patient Home Medication Reconciliation performed by pharmacy medication reconciliations manufacturing technician and/or nursing. Patients Allergies have been reviewed. Allergies Allergies Coded Allergies cyclobenzaprine (Verified Allergy, Mild, ITCHING, 07/02/19) lisinopril (Verified Allergy, Mild, COUGH, 07/02/19) Past [id number] Hx Past Med/Social Hx: Reviewed Nursing Past Med/Soc Hx, Reviewed and Corrections made Patient Social History Marrital Status: Employed/Student: employed Alcohol Use: Denies Use Smoking Status: Former Smoker Type Used: Smokeless Tobacco 2nd Hand Smoke Exposure: No Recent Hopitalizations: No Immunizations Up To Date Tetanus Booster (TDap): More than 5yrs Date of Influenza Vaccine: May 12, 2020 Seasonal Allergies Seasonal Allergies: No Past Medical History Surgeries: Gallbladder, Vasectomy Respiratory: COPD, Sleep Apnea Currently Using CPAP: No Currently Using BIPAP: Yes Cardiac: Atrial Fibrillation, High Cholesterol, Hypertension Sexually Transmitted Disease: No HIV/AIDS: No Gastrointestinal: Gastroesophageal Reflux Musculoskeletal: Arthritis Endocrine: Diabetes, Non-Insulin dep Loss of Vision: Denies Hearing Impairment: Denies History of Blood Disorders: No Adverse Reaction to Blood Malik: No (N/A) Family History Cardiovascular disease 19 MOTHER Diabetes mellitus 19 FATHER Hypertension 19 FATHER 19 MOTHER G8 BROTHER Myocardial infarction 19 MOTHER Respiratory disorder 19 MOTHER Review of Systems Constitutional: see HPI, malaise, weakness EENTM: no symptoms reported Respiratory: cough, dyspnea on exertion Cardiovascular: no symptoms reported Gastrointestinal: no symptoms reported Genitourinary: no symptoms reported Musculoskeletal: no symptoms reported Skin: no symptoms reported Psychiatric/Neurological: No Symptoms Reported All Other Systems Reviewed Negative Unless Noted: Yes Physical Exam Physical Exam Vital Signs Vital Signs - First Documented 10/06/22 10/06/22 03:36 09:05 Temp 38.2 Pulse 102 Resp 50 B/P (MAP) 174/86 (115) Pulse Ox 95 O2 Delivery Nasal Cannula O2 Flow Rate 2.00 FiO2 21 Capillary Refill : Less Than 3 Seconds Height, Weight, BMI Height: 5'11.00" Weight: 318lbs. 0.0oz. 144.746293jr; 52.02 BMI Method:Stated General Appearance: No Apparent Distress, WD/WN, Chronically ill Respiratory: Chest Non Tender, Accessory Muscle Use, Decreased Breath Sounds; No Rhonci, No Stridor; Wheezing (improved wheezing from initial presentation) Cardiovascular: Regular Rate, Rhythm, Normal Peripheral Pulses Results Results/Procedures Labs Laboratory Tests 10/06/22 04:15 Patient resulted labs reviewed. Assessment/Plan Admission Diagnosis Assessment: Sepsis from PNA - white count trending down Acute Respiratory Distress - improved - BIPAP was used only until arrival to [facility] - 98% on NC 2L Obesity Hypoventilation Syndrome Chronic alkolosis Upper Respiratory Tract infection - likely viral or related to hay exposure Sleep Apnea - CPAP at night Paroxysmal A-fib - on xarelto NINA Obese male - BMI 46 HTN Plan: Move to the floor today Discontinued methylprednisolone, doxycycline and ceftriaxone PT/OT Bipap at night Supportive care Admission Status: Inpatient Order (span 2 midnights) Reason for Inpatient Admission: resp failure FINA ZAIDI DO October 06, 2022 10:51
[2022-10-06] MEDS: inSUlin ASPART (NovoLOG) 1 UNIT/0.01 ML (CHARGE PER UNIT) SC SCH ×3 (11:49→20:39)
[2022-10-06] MEDS ORDERED: MAGN250T13 PO (12:40)
[2022-10-06] MEDS ORDERED: CARV25TA PO (12:40)
[2022-10-06] MEDS ORDERED: CEPH500T PO (12:40)
[2022-10-06] MEDS ORDERED: AMLO-251 PO (12:40)
[2022-10-06] MEDS: CEFEPIME INJECTION 1,000 MG in NS (IVPB) 50 ML IV SCH ×3 (13:35→23:48)
[2022-10-06] MEDS: ACETAMINOPHEN 325 MG TABLET PO PRN ×2 (13:41→18:36)
[2022-10-06] MEDS ORDERED: FUROSEMIDE 40 MG/4 ML INJ (LASIX) IVP ONE (15:15)
[2022-10-06] MEDS: RT-ALBUTEROL/IPRATROPIUM 3 ML (DUONEB) VIAL INH SCH ×2 (15:18→21:27)
[2022-10-06] MEDS: RIVAROXABAN 20 MG TABLET (XARELTO) PO SCH (16:54)
[2022-10-06] MEDS: MAGNESIUM OXIDE (MAG-OX)400 MG TAB PO SCH (20:38)
[2022-10-06] MEDS: MULTIVIT W/MINERALS TAB (THERAGRAN M) PO SCH (20:38)
[2022-10-06] MEDS: DRONEDARONE 400 MG TABLET PO SCH (20:38)
[2022-10-06] MEDS: LOSARTAN 25 MG (COZAAR) TAB PO SCH (20:38)
[2022-10-06] MEDS: metFORMIN 500 MG (GLUCOPHAGE) TAB PO SCH (20:38)
[2022-10-06] MEDS: amLODIPine 10 MG (NORVASC) TAB PO SCH (20:38)
[2022-10-06] MEDS: DOCUSATE SODIUM 100 MG (COLACE) CAP PO SCH (20:39)
[2022-10-06] MEDS ORDERED: RIVAROXABAN 20 MG TABLET (XARELTO) PO SCH (21:00)
[2022-10-06] MEDS ORDERED: IBUPROFEN TABLET 200 MG TAB PO PRN (21:30)
[2022-10-06] MEDS ORDERED: VANCOMYCIN 1,750 MG/NS 500 ML IVPB IV SCH ×2 (22:00)
[2022-10-07] MEDS: RT-ALBUTEROL/IPRATROPIUM 3 ML (DUONEB) VIAL INH SCH ×4 (03:47→20:51)
[2022-10-07 04:34] VITALS: BP 135/74
[2022-10-07 05:19] LABS: BASOPHILS % (AUTO) 0 % (0-10); EOSINOPHILS % (AUTO) 0 % (0-10); HEMATOCRIT 37 % (40-54); HEMOGLOBIN 11.7 g/dL (13.3-17.7); LYMPHOCYTES # (AUTO) 1.7 10^3/uL (1.0-4.0); LYMPHOCYTES % (AUTO) 11 % (12-44); MEAN CORPUSCULAR HEMOGLOBIN 26 pg (25-34); MEAN CORPUSCULAR HGB CONC 32 g/dL (32-36); MEAN CORPUSCULAR VOLUME 82 fL (80-99); MEAN PLATELET VOLUME 9.6 fL (9.0-12.2); MONOCYTES # (AUTO) 0.6 10^3/uL (0.0-1.0); MONOCYTES % (AUTO) 4 % (0-12); NEUTROPHILS % (AUTO) 84 % (42-75); PLATELET COUNT 182 10^3/uL (130-400); WHITE BLOOD COUNT 15.4 10^3/uL (4.3-11.0)
--- NOTE | 2022-10-07 05:19 | Progress Note ---
Subjective Date Seen by a Provider: Oct 07, 2022 Time Seen by a Provider: 11:00 Subjective/Events-last exam Patient doing a little better No more fever Ibuprofen added due to high fever last night Pain is controlled Used BiPAP last night made his throat sore Review of Systems General: Fatigue, Malaise Focused Exam Lactate Level 10/06/22 04:15: Lactic Acid Level 2.25*H 10/06/22 06:15: Lactic Acid Level 1.97 Time of Focused Exam: 05:31 Objective Exam Last Set of Vital Signs Vital Signs Date Time Temp Pulse Resp B/P (MAP) Pulse Ox O2 Delivery O2 Flow Rate FiO2 10/07/22 04:34 35.9 71 22 135/74 (94) 97 NIV CPAP 10/07/22 03:47 21.00 10/06/22 09:16 28 Capillary Refill : Less Than 3 Seconds I&O Intake and Output 10/06/22 23:59 Intake Total 4350 ml Output Total 0 ml Balance 4350 ml Intake Oral 1250 ml IV Total 3100 ml Output Urine Total 0 ml # Voids 6 # Bowel Movements 1 Daily Weight Change No General: Alert, Oriented X3, Cooperative, No Acute Distress Lungs: Clear to Auscultation, Normal Air Movement Heart: Regular Rate, Normal S1, Normal S2, No Murmurs Psych/Mental Status: Mental Status NL, Mood NL Results Lab Laboratory Tests 10/06/22 06:15: Lactic Acid Level 1.97 10/06/22 11:18: Glucometer 162H 10/06/22 16:03: Glucometer 189H 10/06/22 20:13: Glucometer 197H 10/07/22 04:55: 10/07/22 05:08: Glucometer 212H Assessment/Plan Assessment/Plan Assess & Plan/Chief Complaint Assessment: Sepsis from PNA - white count trending down Acute Respiratory Distress - improved - BIPAP was used only until arrival to [facility] - 98% on NC 2L Obesity Hypoventilation Syndrome Chronic alkolosis Upper Respiratory Tract infection - likely viral or related to hay exposure Sleep Apnea - CPAP at night Paroxysmal A-fib - on xarelto NINA Obese male - BMI 46 HTN Plan: Move to the floor PT/OT Bipap at night Supportive care FINA WILSON DO Oct 07, 2022 05:19
[2022-10-07 05:41] LABS: ALBUMIN 3.8 GM/DL (3.2-4.5); POTASSIUM 4.2 MMOL/L (3.6-5.0)
[2022-10-07 05:42] LABS: CALCIUM 9.3 MG/DL (8.5-10.1)
[2022-10-07 05:45] LABS: BILIRUBIN,TOTAL 0.5 MG/DL (0.1-1.0)
[2022-10-07 05:47] LABS: CREATININE SERUM 1.27 MG/DL (0.60-1.30)
[2022-10-07 05:50] LABS: MAGNESIUM 2.1 MG/DL (1.6-2.4)
[2022-10-07] MEDS ORDERED: POTASSIUM CL 10MEQ/50ML IVPB 50 ML IV SCH (06:00)
[2022-10-07] MEDS ORDERED: KCL 20 MEQ TAB (K-DUR) PO SCH (06:00)
[2022-10-07] MEDS ORDERED: MAGNESIUM 1 GM/100 ML IVPB 100 ML IV SCH (06:00)
[2022-10-07] MEDS: inSUlin ASPART (NovoLOG) 1 UNIT/0.01 ML (CHARGE PER UNIT) SC SCH ×4 (06:26→20:58)
[2022-10-07] MEDS: CEFEPIME INJECTION 1,000 MG in NS (IVPB) 50 ML IV SCH ×3 (06:26→18:23)
[2022-10-07] MEDS: TORSEMIDE 20 MG (DEMADEX) TAB PO SCH ×2 (06:27→12:29)
[2022-10-07] MEDS ORDERED: FUROSEMIDE 40 MG/4 ML INJ (LASIX) IVP SCH (07:00)
[2022-10-07 08:20] VITALS: BP 159/76
--- NOTE | 2022-10-07 08:27 | Cardiology Progress Note ---
Subjective Date Seen by Provider: Oct 07, 2022 Time Seen by Provider: 08:25 Subjective/Events-last exam Patient sitting up in chair, denies any chest pain or increased dyspnea. C/o mild sore throat this morning. Focused Exam Lactate Level 10/06/22 04:15: Lactic Acid Level 2.25*H 10/06/22 06:15: Lactic Acid Level 1.97 Time of Focused Exam: 05:31 Objective-Cardiology Exam Last Set of Vital Signs Vital Signs 10/06/22 10/07/22 10/07/22 09:16 03:47 08:20 Temp 36.5 Pulse 70 Resp 18 B/P (MAP) 159/76 (103) Pulse Ox 95 O2 Delivery Room Air O2 Flow Rate 21.00 FiO2 28 I&O Intake and Output 10/07/22 00:00 Intake Total 4350 ml Output Total 0 ml Balance 4350 ml Intake Oral 1250 ml IV Total 3100 ml Output Urine Total 0 ml # Voids 6 # Bowel Movements 1 Daily Weight Change No General: Alert, Oriented X3, Cooperative HEENT: Atraumatic, PERRLA Lungs: Clear to Auscultation, Normal Air Movement Heart: Regular Rate, Normal S1, Normal S2 Extremities: Other (+2-3 edema BLE) Skin: Other (LLE cellulitis) Neuro: Normal Speech Psych/Mental Status: Mental Status NL, Mood NL Results Lab Laboratory Tests 10/07/22 04:55 A/P-Cardiology Admission Diagnosis Sepsis Acute respiratory distress PAF HTN Assessment/Plan Sepsis, fever with elevated lactic acid. Patient was having significant dyspnea on arrival to the emergency room Chest x-ray was normal Probably secondary to cellulitis on the left lower extremity, continue on antib iotics and monitor Acute respiratory distress, improved. Patient reports significant improvement. Currently on room air. Peripheral edema, worsening orthopnea Responded well to diuresis. I will d/c IV Lasix, continue on PO torsemide 2D echo was done on October 06, 2022 showing normal LV size and systolic function, normal ejection fraction 60 to 65%, PA pressure 30 to 35 mmHg. Paroxysmal atrial fibrillation, currently in sinus rhythm. Patient had history of atrial fibrillation and has been compliant with his medication. Has been maintained on Multaq and Xarelto [id number] score 3, maintained on Xarelto. Left leg cellulitis, recently started on antibiotics as outpatient. Patient reports chronic left leg erythema and edema since 2020 and has had w/u with PCP. Hypertension, restart home blood pressure medications and continue to monitor. Diabetes mellitus, managed by primary care team COPD/obstructive sleep apnea, has been using CPAP. Mild bilateral carotid stenosis, ultrasound was done in August 2021 Obesity History of peripheral edema, chronic. Supervisory-Addendum Brief Supervisory Addendum Participated in pt care: history, MDM, physical Personally performed: exam, history, MDM Care discussed with: DEON Results interpretation: Verified all documentation Notes: Patient was seen and evaluated with Alessio, examination performed, management plan was discussed, agree with the current scribed note, I made few changes to the note using Italic font Patient was seen at bedside sitting comfortably, still having fever Having cellulitis on the left lower extremity, receiving antibiotic and torsemide Continue to monitor ALESSIO FULLER Oct 07, 2022 08:27 CAROLINE MOISE MD Oct 07, 2022 08:40
[2022-10-07] MEDS: DRONEDARONE 400 MG TABLET PO SCH ×2 (08:44→20:57)
[2022-10-07] MEDS: ASPIRIN E.C. 81 MG (ECOTRIN) TAB PO SCH (08:44)
[2022-10-07] MEDS: ALLOPURINOL 300 MG (ZYLOPRIM) TAB PO SCH (08:44)
[2022-10-07] MEDS: metFORMIN 500 MG (GLUCOPHAGE) TAB PO SCH ×2 (08:45→20:57)
[2022-10-07] MEDS: FENOFIBRATE 134 MG (LOFIBRA) CAPSULE PO SCH (08:45)
[2022-10-07] MEDS: AtorvaSTATin TABLET 10 MG TABLET PO SCH (08:45)
[2022-10-07] MEDS: CELECOXIB 100 MG (CeleBREX) CAP PO SCH (08:46)
[2022-10-07] MEDS: DOCUSATE SODIUM 100 MG (COLACE) CAP PO SCH ×2 (08:46→20:57)
[2022-10-07] MEDS ORDERED: CEPHALEXIN 250 MG (KEFLEX) CAP PO SCH (09:00)
[2022-10-07] MEDS ORDERED: TROUGH ORDER-PHARMACY XX ONE (09:00)
[2022-10-07 12:13] VITALS: BP 143/77
[2022-10-07 15:20] VITALS: BP 125/58
[2022-10-07] MEDS: RIVAROXABAN 20 MG TABLET (XARELTO) PO SCH (18:24)
[2022-10-07 20:22] VITALS: BP 121/58
[2022-10-07] MEDS: MAGNESIUM OXIDE (MAG-OX)400 MG TAB PO SCH (20:57)
[2022-10-07] MEDS: LOSARTAN 25 MG (COZAAR) TAB PO SCH (20:58)
[2022-10-07] MEDS: MULTIVIT W/MINERALS TAB (THERAGRAN M) PO SCH (20:58)
[2022-10-07] MEDS: amLODIPine 10 MG (NORVASC) TAB PO SCH (20:58)
[2022-10-07 23:50] VITALS: BP 111/57
[2022-10-08] MEDS: CEFEPIME INJECTION 1,000 MG in NS (IVPB) 50 ML IV SCH ×3 (00:28→12:08)
[2022-10-08] MEDS: RT-ALBUTEROL/IPRATROPIUM 3 ML (DUONEB) VIAL INH SCH ×2 (01:59→07:54)
[2022-10-08 03:24] VITALS: BP 116/59
[2022-10-08 06:07] LABS: BASOPHILS % (AUTO) 0 % (0-10); EOSINOPHILS % (AUTO) 0 % (0-10); HEMATOCRIT 36 % (40-54); HEMOGLOBIN 11.9 g/dL (13.3-17.7); LYMPHOCYTES # (AUTO) 2.3 10^3/uL (1.0-4.0); LYMPHOCYTES % (AUTO) 11 % (12-44); MEAN CORPUSCULAR HEMOGLOBIN 27 pg (25-34); MEAN CORPUSCULAR HGB CONC 33 g/dL (32-36); MEAN CORPUSCULAR VOLUME 82 fL (80-99); MEAN PLATELET VOLUME 10.4 fL (9.0-12.2); MONOCYTES % (AUTO) 5 % (0-12); NEUTROPHILS # (AUTO) 16.7 10^3/uL (1.8-7.8); NEUTROPHILS % (AUTO) 82 % (42-75); PLATELET COUNT 218 10^3/uL (130-400); WHITE BLOOD COUNT 20.3 10^3/uL (4.3-11.0)
[2022-10-08] MEDS: TORSEMIDE 20 MG (DEMADEX) TAB PO SCH (06:10)
[2022-10-08] MEDS: inSUlin ASPART (NovoLOG) 1 UNIT/0.01 ML (CHARGE PER UNIT) SC SCH ×2 (06:10→12:08)
[2022-10-08 06:31] LABS: ALBUMIN 3.6 GM/DL (3.2-4.5); BILIRUBIN,TOTAL 0.3 MG/DL (0.1-1.0); CALCIUM 8.9 MG/DL (8.5-10.1); CREATININE SERUM 1.47 MG/DL (0.60-1.30); MAGNESIUM 2.3 MG/DL (1.6-2.4); POTASSIUM 4.1 MMOL/L (3.6-5.0); TOTAL PROTEIN 6.9 GM/DL (6.4-8.2)
--- NOTE | 2022-10-08 08:30 | Progress Note ---
Subjective Date Seen by a Provider: Oct 08, 2022 Time Seen by a Provider: 11:00 Focused Exam Lactate Level 10/06/22 04:15: Lactic Acid Level 2.25*H 10/06/22 06:15: Lactic Acid Level 1.97 Time of Focused Exam: 05:31 Objective Exam Last Set of Vital Signs Vital Signs Date Time Temp Pulse Resp B/P (MAP) Pulse Ox O2 Delivery O2 Flow Rate FiO2 10/08/22 07:56 96 Room Air 10/08/22 03:24 36.6 82 18 116/59 (78) 21.00 10/06/22 09:16 28 Capillary Refill : Less Than 3 Seconds I&O Intake and Output 10/08/22 00:00 Intake Total 3061.5 ml Balance 3061.5 ml Intake Oral 2544 ml IV Total 517.5 ml # Voids 15 Results Lab Laboratory Tests 10/07/22 11:43: Glucometer 383H 10/07/22 15:23: Glucometer 285H 10/07/22 20:26: Glucometer 325H 10/08/22 05:19: Glucometer 284H 10/08/22 05:20: White Blood Count 20.3H, Red Blood Count 4.39, Hemoglobin 11.9L, Hematocrit 36L, Mean Corpuscular Volume 82, Mean Corpuscular Hemoglobin 27, Mean Corpuscular Hemoglobin Concent 33, Red Cell Distribution Width 14.4, Platelet Count 218, Mean Platelet Volume 10.4, Immature Granulocyte % (Auto) 1, Neutrophils (%) (Auto) 82H, Lymphocytes (%) (Auto) 11L, Monocytes (%) (Auto) 5, Eosinophils (%) (Auto) 0, Basophils (%) (Auto) 0, Neutrophils # (Auto) 16.7H, Lymphocytes # (Auto) 2.3, Monocytes # (Auto) 1.0, Eosinophils # (Auto) 0.0, Basophils # (Auto) 0.0, Immature Granulocyte # (Auto) 0.2H, Sodium Level 136, Potassium Level 4.1, Chloride Level 102, Carbon Dioxide Level 23, Anion Gap 11, Blood Urea Nitrogen 23H, Creatinine 1.47H, Estimat Glomerular Filtration Rate 56, BUN/Creatinine Ratio 16, Glucose Level 292H, Calcium Level 8.9, Corrected Calcium 9.2, Magnesium Level 2.3, Total Bilirubin 0.3, Aspartate Amino Transf (AST/SGOT) 20, Alanine Aminotransferase (ALT/SGPT) 53, Alkaline Phosphatase 65, Total Protein 6.9, Albumin 3.6 Microbiology 10/06/22 MRSA Screen - Final, Complete MRSA not isolated 10/06/22 Blood Culture - Preliminary, Resulted No growth Assessment/Plan Assessment/Plan Assess & Plan/Chief Complaint Assessment: Sepsis from PNA - white count trending down Acute Respiratory Distress - improved - BIPAP was used only until arrival to [facility] - 98% on NC 2L Obesity Hypoventilation Syndrome Chronic alkolosis Upper Respiratory Tract infection - likely viral or related to hay exposure Sleep Apnea - CPAP at night Paroxysmal A-fib - on xarelto NINA Obese male - BMI 46 HTN Plan: Move to the floor PT/OT Bipap at night Supportive care FINA WILSON DO Oct 08, 2022 08:30
[2022-10-08 08:42] VITALS: BP 120/60
[2022-10-08] MEDS: FENOFIBRATE 134 MG (LOFIBRA) CAPSULE PO SCH (09:35)
[2022-10-08] MEDS: metFORMIN 500 MG (GLUCOPHAGE) TAB PO SCH (09:35)
[2022-10-08] MEDS: CELECOXIB 100 MG (CeleBREX) CAP PO SCH (09:35)
[2022-10-08] MEDS: ASPIRIN E.C. 81 MG (ECOTRIN) TAB PO SCH (09:35)
[2022-10-08] MEDS: AtorvaSTATin TABLET 10 MG TABLET PO SCH (09:36)
[2022-10-08] MEDS: ALLOPURINOL 300 MG (ZYLOPRIM) TAB PO SCH (09:36)
[2022-10-08] MEDS: DOCUSATE SODIUM 100 MG (COLACE) CAP PO SCH (09:36)
[2022-10-08] MEDS: DRONEDARONE 400 MG TABLET PO SCH (10:01)
[2022-10-08] MEDS ORDERED: TRIAMCINOLONE 0.1% CR (KENALOG) 15 GM TUBE TOP SCH (11:45)
[2022-10-08] MEDS ORDERED: TR1C15 TOP (12:05)
[2022-10-08] MEDS ORDERED: CEFD300C3 PO (12:05)
[2022-10-08] MEDS ORDERED: DOXY100T2 PO (12:05)
[2022-10-08] MEDS ORDERED: OXC5T PO (12:05)
--- NOTE | 2022-10-08 12:06 | Discharge Summary ---
Diagnosis/Chief Complaint Date of Admission October 06, 2022 at 08:51 Date of Discharge Discharge Date: Oct 08, 2022 Discharge Diagnosis Assessment: Sepsis from PNA - white count trending down Acute Respiratory Distress - improved - BIPAP was used only until arrival to [facility] - 98% on NC 2L Obesity Hypoventilation Syndrome Chronic alkolosis Upper Respiratory Tract infection - likely viral or related to hay exposure Sleep Apnea - CPAP at night Paroxysmal A-fib - on xarelto NINA Obese male - BMI 46 HTN Plan: Move to the floor PT/OT Bipap at night Supportive care Discharge Summary Discharge Physical Examination Allergies: Coded Allergies: cyclobenzaprine (Verified Allergy, Mild, ITCHING, 07/02/19) lisinopril (Verified Allergy, Mild, COUGH, 07/02/19) Vitals & I&Os Vital Signs Date Time Temp Pulse Resp B/P (MAP) Pulse Ox O2 Delivery O2 Flow Rate FiO2 10/08/22 13:20 36.4 67 18 133/74 97 Room Air 0.00 10/06/22 09:16 28 General Appearance: Alert, Oriented X3, Cooperative Respiratory: Clear to Auscultation Cardiovascular: Regular Rate Psych/Mental Status: Mental Status NL Hospital Course Was the Problem List Reviewed?: Yes Patient had an uneventful hospital course after he was admitted for acute on chronic respiratory failure requiring BiPAP and admission to the ICU before he was found to be at baseline from a lung standpoint so he was moved down to fourth floor. Labs improved gradually he was placed on broad-spectrum biotics but chest x-ray did not reveal pneumonia. Left leg cellulitis ultimately surfaced consistent with the sepsis episode and that had improved and his blood sugars were more proved after steroids were discontinued and he was ready for discharge back to baseline and he will follow-up with close appointment with primary care provider and he was discharged on oral antibiotics. Labs (last 24 hrs) Laboratory Tests 10/06/22 04:09: Influenza Type A (RT-PCR) Not Detected, Influenza Type B (RT-PCR) Not Detected, SARS-CoV-2 RNA (RT-PCR) Not Detected 10/06/22 04:15: White Blood Count 18.0H, Red Blood Count 5.06, Hemoglobin 13.5, Hematocrit 42, Mean Corpuscular Volume 82, Mean Corpuscular Hemoglobin 27, Mean Corpuscular Hemoglobin Concent 33, Red Cell Distribution Width 14.4, Platelet Count 237, Mean Platelet Volume 10.5, Immature Granulocyte % (Auto) 0, Neutrophils (%) (Auto) 79H, Lymphocytes (%) (Auto) 14, Monocytes (%) (Auto) 5, Eosinophils (%) (Auto) 1, Basophils (%) (Auto) 1, Neutrophils # (Auto) 14.3H, Lymphocytes # (Auto) 2.5, Monocytes # (Auto) 0.8, Eosinophils # (Auto) 0.2, Basophils # (Auto) 0.1, Immature Granulocyte # (Auto) 0.1, Neutrophils % (Manual) 62, Lymphocytes % (Manual) 9, Monocytes % (Manual) 7, Eosinophils % (Manual) 2, Metamyelocytes % 1, Myelocytes % 1, Band Neutrophils 12, Atypical Lymphocytes 2, Reactive Lymphocytes 4, Platelet Estimate NORMAL, Blood Morphology Comment NORMAL, Prothrombin Time 18.2H, INR Comment 1.5H, Activated Partial Thromboplast Time 44H, D-Dimer 0.26, Blood Gas Puncture Site LT. RADIAL, Blood Gas Patient Temperature 38.2, Arterial Blood pH 7.38, Arterial Blood Partial Pressure CO2 45, Arterial Blood Partial Pressure O2 72L, Arterial Blood HCO3 26, Arterial Blood Total CO2 27.0, Arterial Blood Oxygen Saturation 94, Arterial Blood Base Excess 1.0, Suresh Test OK, Blood Gas Ventilator Setting NO, Blood Gas Inspired Oxygen 2 L, Sodium Level 141, Potassium Level 3.9, Chloride Level 101, Carbon Dioxide Level 28, Anion Gap 12, Blood Urea Nitrogen 15, Creatinine 1.25, Estimat Glomerular Filtration Rate 68, BUN/Creatinine Ratio 12, Glucose Level 172H, Lactic Acid Level 2.25*H, Calcium Level 9.5, Corrected Calcium 9.2, Total Bilirubin 0.5, Aspartate Amino Transf (AST/SGOT) 60H, Alanine Aminotransferase (ALT/SGPT) 90H, Alkaline Phosphatase 91, Troponin I < 0.30, C-Reactive Protein 0.96H, Pro-B-Type Natriuretic Peptide 132.4H, Total Protein 7.7, Albumin 4.4 10/06/22 04:40: Urine Color YELLOW, Urine Clarity CLEAR, Urine pH 7.0, Urine Specific [place] 1.015L, Urine Protein 2+H, Urine Glucose (UA) NEGATIVE, Urine Ketones NEGATIVE, Urine Nitrite NEGATIVE, Urine Bilirubin NEGATIVE, Urine Urobilinogen 0.2, Urine Leukocyte Esterase NEGATIVE, Urine RBC (Auto) TRACE-IH, Urine RBC 0-2, Urine WBC RARE, Urine Squamous Epithelial Cells RARE, Urine Crystals NONE, Urine Bacteria NEGATIVE, Urine Casts NONE, Urine Mucus NEGATIVE, Urine Culture Indicated NO 10/06/22 06:15: Lactic Acid Level 1.97 10/06/22 11:18: Glucometer 162H 10/06/22 16:03: Glucometer 189H 10/06/22 20:13: Glucometer 197H 10/07/22 04:55: White Blood Count 15.4H, Red Blood Count 4.44, Hemoglobin 11.7L, Hematocrit 37L, Mean Corpuscular Volume 82, Mean Corpuscular Hemoglobin 26, Mean Corpuscular Hemoglobin Concent 32, Red Cell Distribution Width 14.5, Platelet Count 182, Mean Platelet Volume 9.6, Immature Granulocyte % (Auto) 1, Neutrophils (%) (Aut o) 84H, Lymphocytes (%) (Auto) 11L, Monocytes (%) (Auto) 4, Eosinophils (%) (Auto) 0, Basophils (%) (Auto) 0, Neutrophils # (Auto) 13.0H, Lymphocytes # (Auto) 1.7, Monocytes # (Auto) 0.6, Eosinophils # (Auto) 0.0, Basophils # (Auto) 0.0, Immature Granulocyte # (Auto) 0.1, Sodium Level 132L, Potassium Level 4.2, Chloride Level 102, Carbon Dioxide Level 22, Anion Gap 8, Blood Urea Nitrogen 13, Creatinine 1.27, Estimat Glomerular Filtration Rate 66, BUN/Creatinine Ratio 10, Glucose Level 220H, Calcium Level 9.3, Corrected Calcium 9.5, Magnesium Level 2.1, Total Bilirubin 0.5, Aspartate Amino Transf (AST/SGOT) 39H, Alanine Aminotransferase (ALT/SGPT) 76H, Alkaline Phosphatase 68, Total Protein 7.0, Albumin 3.8 10/07/22 05:08: Glucometer 212H 10/07/22 11:43: Glucometer 383H 10/07/22 15:23: Glucometer 285H 10/07/22 20:26: Glucometer 325H 10/08/22 05:19: Glucometer 284H 10/08/22 05:20: White Blood Count 20.3H, Red Blood Count 4.39, Hemoglobin 11.9L, Hematocrit 36L, Mean Corpuscular Volume 82, Mean Corpuscular Hemoglobin 27, Mean Corpuscular Hemoglobin Concent 33, Red Cell Distribution Width 14.4, Platelet Count 218, Mean Platelet Volume 10.4, Immature Granulocyte % (Auto) 1, Neutrophils (%) (Auto) 82H, Lymphocytes (%) (Auto) 11L, Monocytes (%) (Auto) 5, Eosinophils (%) (Auto) 0, Basophils (%) (Auto) 0, Neutrophils # (Auto) 16.7H, Lymphocytes # (Auto) 2.3, Monocytes # (Auto) 1.0, Eosinophils # (Auto) 0.0, Basophils # (Auto) 0.0, Immature Granulocyte # (Auto) 0.2H, Sodium Level 136, Potassium Level 4.1, Chloride Level 102, Carbon Dioxide Level 23, Anion Gap 11, Blood Urea Nitrogen 23H, Creatinine 1.47H, Estimat Glomerular Filtration Rate 56, BUN/Creatinine Ratio 16, Glucose Level 292H, Calcium Level 8.9, Corrected Calcium 9.2, Magnesium Level 2.3, Total Bilirubin 0.3, Aspartate Amino Transf (AST/SGOT) 20, Alanine Aminotransferase (ALT/SGPT) 53, Alkaline Phosphatase 65, Total Protein 6.9, Albumin 3.6 10/08/22 10:58: Glucometer 415*H Microbiology 10/06/22 MRSA Screen - Final, Complete MRSA not isolated 10/06/22 Blood Culture - Preliminary, Resulted No growth Pending Labs Microbiology Date/Time Source Procedure Growth Status 10/06/22 10:30 Nasal MRSA Screen - Final MRSA not isolated Complete 10/06/22 04:28 Sputum Expectorated Gram Stain - Final Complete 10/06/22 04:28 Sputum Culture - Final Usual upper respiratory dean Complete 10/06/22 04:20 Peripheral Rt Forearm Blood Culture - Preliminary No growth Resulted 10/06/22 04:15 Peripheral Rt Hand Blood Culture - Preliminary Gram Positive Cocci in Cluster See Comments Resulted Laboratory Tests 10/06/22 04:09: Influenza Type A (RT-PCR) Not Detected, Influenza Type B (RT-PCR) Not Detected, SARS-CoV-2 RNA (RT-PCR) Not Detected 10/06/22 04:15: White Blood Count 18.0, Red Blood Count 5.06, Hemoglobin 13.5, Hematocrit 42, Mean Corpuscular Volume 82, Mean Corpuscular Hemoglobin 27, Mean Corpuscular Hemoglobin Concent 33, Red Cell Distribution Width 14.4, Platelet Count 237, Mean Platelet Volume 10.5, Immature Granulocyte % (Auto) 0, Neutrophils (%) (Auto) 79, Lymphocytes (%) (Auto) 14, Monocytes (%) (Auto) 5, Eosinophils (%) (Auto) 1, Basophils (%) (Auto) 1, Neutrophils # (Auto) 14.3, Lymphocytes # (Auto) 2.5, Monocytes # (Auto) 0.8, Eosinophils # (Auto) 0.2, Basophils # (Auto) 0.1, Immature Granulocyte # (Auto) 0.1, Neutrophils % (Manual) 62, Lymphocytes % (Manual) 9, Monocytes % (Manual) 7, Eosinophils % (Manual) 2, Metamyelocytes % 1, Myelocytes % 1, Band Neutrophils 12, Atypical Lymphocytes 2, Reactive Lymphocytes 4, Platelet Estimate NORMAL, Blood Morphology Comment NORMAL, Prothrombin Time 18.2, INR Comment 1.5, Activated Partial Thromboplast Time 44, D-Dimer 0.26, Blood Gas Puncture Site LT. RADIAL, Blood Gas Patient Temperature 38.2, Arterial Blood pH 7.38, Arterial Blood Partial Pressure CO2 45, Arterial Blood Partial Pressure O2 72, Arterial Blood HCO3 26, Arterial Blood Total CO2 27.0, Arterial Blood Oxygen Saturation 94, Arterial Blood Base Excess 1.0, Suresh Test OK, Blood Gas Ventilator Setting NO, Blood Gas Inspired Oxygen 2 L, Sodium Level 141, Potassium Level 3.9, Chloride Level 101, Carbon Dioxide Level 28, Anion Gap 12, Blood Urea Nitrogen 15, Creatinine 1.25, Estimat Glomerular Filtration Rate 68, BUN/Creatinine Ratio 12, Glucose Level 172, Lactic Acid Level 2.25, Calcium Level 9.5, Corrected Calcium 9.2, Total Bilirubin 0.5, Aspartate Amino Transf (AST/SGOT) 60, Alanine Aminotransferase (ALT/SGPT) 90, Alkaline Phosphatase 91, Troponin I < 0.30, C-Reactive Protein 0.96, Pro-B-Type Natriuretic Peptide 132.4, Total Protein 7.7, Albumin 4.4 10/06/22 04:40: Urine Color YELLOW, Urine Clarity CLEAR, Urine pH 7.0, Urine Specific [place] 1.015, Urine Protein 2+, Urine Glucose (UA) NEGATIVE, Urine Ketones NEGATIVE, Urine Nitrite NEGATIVE, Urine Bilirubin NEGATIVE, Urine Urobilinogen 0.2, Urine Leukocyte Esterase NEGATIVE, Urine RBC (Auto) TRACE-I, Urine RBC 0-2, Urine WBC RARE, Urine Squamous Epithelial Cells RARE, Urine Crystals NONE, Urine Bacteria NEGATIVE, Urine Casts NONE, Urine Mucus NEGATIVE, Urine Culture Indicated NO 10/06/22 06:15: Lactic Acid Level 1.97 10/06/22 11:18: Glucometer 162 10/06/22 16:03: Glucometer 189 10/06/22 20:13: Glucometer 197 10/07/22 04:55: White Blood Count 15.4, Red Blood Count 4.44, Hemoglobin 11.7, Hematocrit 37, Mean Corpuscular Volume 82, Mean Corpuscular Hemoglobin 26, Mean Corpuscular Hemoglobin Concent 32, Red Cell Distribution Width 14.5, Platelet Count 182, Mean Platelet Volume 9.6, Immature Granulocyte % (Auto) 1, Neutrophils (%) (Auto) 84, Lymphocytes (%) (Auto) 11, Monocytes (%) (Auto) 4, Eosinophils (%) (Auto) 0, Basophils (%) (Auto) 0, Neutrophils # (Auto) 13.0, Lymphocytes # (Auto) 1.7, Monocytes # (Auto) 0.6, Eosinophils # (Auto) 0.0, Basophils # (Auto) 0.0, Immature Granulocyte # (Auto) 0.1, Sodium Level 132, Potassium Level 4.2, Chloride Level 102, Carbon Dioxide Level 22, Anion Gap 8, Blood Urea Nitrogen 13, Creatinine 1.27, Estimat Glomerular Filtration Rate 66, BUN/Creatinine Ratio 10, Glucose Level 220, Calcium Level 9.3, Corrected Calcium 9.5, Magnesium Level 2.1, Total Bilirubin 0.5, Aspartate Amino Transf (AST/SGOT) 39, Alanine Aminotransferase (ALT/SGPT) 76, Alkaline Phosphatase 68, Total Protein 7.0, Albumin 3.8 10/07/22 05:08: Glucometer 212 10/07/22 11:43: Glucometer 383 10/07/22 15:23: Glucometer 285 10/07/22 20:26: Glucometer 325 10/08/22 05:19: Glucometer 284 10/08/22 05:20: White Blood Count 20.3, Red Blood Count 4.39, Hemoglobin 11.9, Hematocrit 36, Mean Corpuscular Volume 82, Mean Corpuscular Hemoglobin 27, Mean Corpuscular Hemoglobin Concent 33, Red Cell Distribution Width 14.4, Platelet Count 218, Mean Platelet Volume 10.4, Immature Granulocyte % (Auto) 1, Neutrophils (%) (Auto) 82, Lymphocytes (%) (Auto) 11, Monocytes (%) (Auto) 5, Eosinophils (%) (Auto) 0, Basophils (%) (Auto) 0, Neutrophils # (Auto) 16.7, Lymphocytes # (Auto) 2.3, Monocytes # (Auto) 1.0, Eosinophils # (Auto) 0.0, Basophils # (Auto) 0.0, Immature Granulocyte # (Auto) 0.2, Sodium Level 136, Potassium Level 4.1, Chloride Level 102, Carbon Dioxide Level 23, Anion Gap 11, Blood Urea Nitrogen 23, Creatinine 1.47, Estimat Glomerular Filtration Rate 56, BUN/Creatinine Ratio 16, Glucose Level 292, Calcium Level 8.9, Corrected Calcium 9.2, Magnesium Level 2.3, Total Bilirubin 0.3, Aspartate Amino Transf (AST/SGOT) 20, Alanine Am inotransferase (ALT/SGPT) 53, Alkaline Phosphatase 65, Total Protein 6.9, Albumin 3.6 10/08/22 10:58: Glucometer 415 Discharge Home Medications: Active Scripts Active Doxycycline Hyclate 100 Mg Tablet 100 Mg PO BID Cefdinir 300 Mg Capsule 300 Mg PO BID Triamcinolone Acetonide 0.1% Cream (Triamcinolone Acet) 0.1 % Cr 0 Gm TOP BID apply to left leg twice daily Oxyir Tablet (Oxycodone HCl) 5 Mg Tab 5 Mg PO Q4HR PRN Reported Magnesium (Magnesium Oxide) 250 Mg Tablet 500 Mg PO HS TAKES 2 (250MG) TABS Carvedilol 25 Mg Tablet 25 Mg PO BID Amlodipine Besylate 10 Mg Tablet 10 Mg PO HS Celecoxib 200 Mg Capsule 200 Mg PO DAILY Aspirin EC (Aspirin) 81 Mg Tablet.dr 81 Mg PO DAILY Metformin HCl 500 Mg Tablet 500 Mg PO BID Allopurinol 300 Mg Tablet 300 Mg PO DAILY Fenofibrate (Fenofibrate Nanocrystallized) 145 Mg Tablet 145 Mg PO DAILY Multivitamin 1 Each Tablet 1 Each PO HS Pravastatin Sodium 20 Mg Tablet 20 Mg PO DAILY Multaq (Dronedarone HCl) 400 Mg Tablet 400 Mg PO BID Xarelto (Rivaroxaban) 20 Mg Tablet 20 Mg PO HS Losartan Potassium 25 Mg Tablet 25 Mg PO HS Torsemide 20 Mg Tablet 60 Mg PO 0700,1300 TAKES 3 (20MG) TABS Instructions to patient/family Please see electronic discharge instructions given to patient. FINA WILSON DO Oct 08, 2022 12:06
[2022-10-08 12:31] VITALS: BP 133/74
[2022-10-08 13:20] VITALS: BP 133/74
== END 2022-10-08 13:20 | disposition home or self-care (01) | DRG 871 ==
LOC: EDUNIT# 03:35 → ER FS 03:37 → ICU 08:51 → 4TH 12:53
PROVIDERS: ADMIT Internal Medicine; ATTEND Internal Medicine
PROC: 5A09357 Assistance with Respiratory Ventilation, Less than 24 Consecutive Hours, Continuous Positive Airway Pressure (ICD-10-PCS; principal; 2022-10-06)
DX: A41.9 Sepsis, unspecified organism (principal); J96.21 Acute and chronic respiratory failure with hypoxia; L03.116 Cellulitis of left lower limb; E66.2 Morbid (severe) obesity with alveolar hypoventilation; Z68.43 Body mass index [BMI] 50.0-59.9, adult; N17.9 Acute kidney failure, unspecified; J06.9 Acute upper respiratory infection, unspecified; J44.9 Chronic obstructive pulmonary disease, unspecified; I48.0 Paroxysmal atrial fibrillation; I10 Essential (primary) hypertension; E78.00 Pure hypercholesterolemia, unspecified; K21.9 Gastro-esophageal reflux disease without esophagitis; E11.9 Type 2 diabetes mellitus without complications; F41.9 Anxiety disorder, unspecified; I65.23 Occlusion and stenosis of bilateral carotid arteries; I87.8 Other specified disorders of veins; F17.290 Nicotine dependence, other tobacco product, uncomplicated; M19.90 Unspecified osteoarthritis, unspecified site; Z20.822 Contact with and (suspected) exposure to COVID-19; Z79.899 Other long term (current) drug therapy; Z79.82 Long term (current) use of aspirin; Z79.84 Long term (current) use of oral hypoglycemic drugs; Z79.01 Long term (current) use of anticoagulants; Z91.09 Other allergy status, other than to drugs and biological substances
CPT/HCPCS: 36415; 71045; 80053; 81000; 82805; 82947; 83605; 83735; 83880; 84484; 85007; 85025; 85027; 85379; 85610; 85730; 86141; 87040; 87070; 87077; 87081; 87205; 87636; 93005; 93041; 93306; 94640; 94660; 94760

== ENCOUNTER 2022-12-29 11:56 | Inpatient (IN) | payer BC ==
[2022-12-29] VITALS (10 sets, daily range): BP systolic 94–180; BP diastolic 47–74
[~2022-12-29] VITALS: Ht 180 cm; Wt 156.4 kg
[~2022-12-29 11:56] MED LIST changes: +CARV25TA PO; +CEPH500C PO; +CEPH500T PO; +DOXY100T2 PO; +MAGN250T13 PO; +OXC5T PO; +TR1C15 TOP
[2022-12-29] MEDS ORDERED: AZITHROMYCIN INJECTION 500 MG in NS (IVPB) 250 ML 250 ML IV ONE ×2 (12:15→16:00)
[2022-12-29] MEDS ORDERED: cefTRIAXone IV/IM 1,000 MG in NS (IVPB) 50 ML 50 ML IV ONE (12:15)
[2022-12-29 12:27] LABS: BASOPHILS # (AUTO) 0.1 10^3/uL (0.0-0.1); BASOPHILS % (AUTO) 0 % (0-10); EOSINOPHILS % (AUTO) 0 % (0-10); HEMATOCRIT 37 % (40-54); HEMOGLOBIN 12.2 g/dL (13.3-17.7); LYMPHOCYTES # (AUTO) 1.6 10^3/uL (1.0-4.0); LYMPHOCYTES % (AUTO) 7 % (12-44); MEAN CORPUSCULAR HEMOGLOBIN 27 pg (25-34); MEAN CORPUSCULAR HGB CONC 33 g/dL (32-36); MEAN CORPUSCULAR VOLUME 81 fL (80-99); MEAN PLATELET VOLUME 9.5 fL (9.0-12.2); MONOCYTES # (AUTO) 0.9 10^3/uL (0.0-1.0); MONOCYTES % (AUTO) 4 % (0-12); NEUTROPHILS # (AUTO) 19.9 10^3/uL (1.8-7.8); NEUTROPHILS % (AUTO) 88 % (42-75); PLATELET COUNT 212 10^3/uL (130-400); WHITE BLOOD COUNT 22.7 10^3/uL (4.3-11.0)
[2022-12-29] MEDS ORDERED: fentaNYL INJECTION 100 MCG/2 ML VIAL IVP ONE (12:30)
[2022-12-29 12:58] LABS: CARBON DIOXIDE 23 MMOL/L (21-32); CHLORIDE 96 MMOL/L (98-107); POTASSIUM 3.8 MMOL/L (3.6-5.0); SODIUM 133 MMOL/L (135-145)
[2022-12-29 12:59] LABS: ALANINE AMINOTRANSFERASE 69 U/L (0-55); ALBUMIN 4.1 GM/DL (3.2-4.5); ALKALINE PHOSPHATASE 77 U/L (40-136); BILIRUBIN,TOTAL 0.6 MG/DL (0.1-1.0); BUN/CREATININE RATIO 9; CALCIUM 9.4 MG/DL (8.5-10.1); CREATININE SERUM 1.39 MG/DL (0.60-1.30); GFR ESTIMATED 59; GLUCOSE 249 MG/DL (70-105); TOTAL PROTEIN 7.1 GM/DL (6.4-8.2)
[2022-12-29 13:00] LABS: ABG BASE EXCESS 3.3 MMOL/L (-2.5-2.5); ABG OXYGEN SATURATION 93 % (94-100); ABG PCO2 41 MMHG (35-45); ABG PH 7.44 (7.37-7.43); ABG PO2 66 MMHG (79-93); ABG TCO2 29.1 MMOL/L (21.0-31.0); INSPIRED O2 2L
[2022-12-29] MEDS ORDERED: NS IV 1000 ML 1,000 ML IV SCH (13:00)
[2022-12-29 13:01] LABS: PATIENT TEMP 39.3; VENTILATOR NO
--- NOTE | 2022-12-29 13:06 | ED Respiratory ---
General Chief Complaint: Respiratory Problems Stated Complaint: SOB Nursing Triage Note: Patient has presented to ER with cc of shortness of breath that started about 0600 this morning. He reports that he has been baling hay and he believes the hay has caused to be short of breath. Source: patient Exam Limitations: no limitations History of Present Illness Date Seen by Provider: Dec 29, 2022 Time Seen by Provider: 11:59 Initial Comments 57-year-old male presents to the emergency department today for shortness of breath. Symptoms started about 6:00 this morning. He has been baling hay and believes that this is causative. He has had 1 similar episode where he was ultimately told he had a fungal infection in his lungs from baling hay. He denies any fevers but is febrile upon arrival. No real coughing. No sick contacts. He does have significant swelling in his left lower extremity. He states he had this last time he was here with similar events. He believes today might be worse than it has been in the past. Is also warm to the touch per his report. He has no other respiratory or cardiac history. All other systems reviewed and negative except documented per HPI. Voice recognition software was used to help create this chart Allergies and Home Medications Allergies Coded Allergies: cyclobenzaprine (Verified Allergy, Mild, ITCHING, 07/02/19) lisinopril (Verified Allergy, Mild, COUGH, 07/02/19) Patient Home Medication List Home Medication List Reviewed: Yes Allopurinol (Allopurinol) 300 Mg Tablet, 300 MG PO DAILY, (Reported) Entered as Reported by: HILDA SALGADO on 02/24/22 1335 Amlodipine Besylate (Amlodipine Besylate) 10 Mg Tablet, 10 MG PO HS, (Reported) Entered as Reported by: HILDA SALGADO on 10/06/22 1240 Aspirin (Aspirin EC) 81 Mg Tablet.dr, 81 MG PO DAILY, (Reported) Entered as Reported by: HILDA SALGADO on 02/24/22 1335 Carvedilol (Carvedilol) 25 Mg Tablet, 25 MG PO BID, (Reported) Entered as Reported by: HILDA SALGADO on 10/06/22 1240 Cefdinir (Cefdinir) 300 Mg Capsule, 300 MG PO BID Prescribed by: FINA WILSON on 10/08/22 1205 Celecoxib (Celecoxib) 200 Mg Capsule, 200 MG PO DAILY, (Reported) Entered as Reported by: HILDA SALGADO on 02/24/22 133 Doxycycline Hyclate (Doxycycline Hyclate) 100 Mg Tablet, 100 MG PO BID Prescribed by: FINA WILSON on 10/08/22 120 Dronedarone HCl (Multaq) 400 Mg Tablet, 400 MG PO BID, (Reported) Entered as Reported by: SUHA RIOS on 02/24/22 032 Fenofibrate Nanocrystallized (Fenofibrate) 145 Mg Tablet, 145 MG PO DAILY, (Reported) Entered as Reported by: HILDA SALGADO on 02/24/22 133 Losartan Potassium (Losartan Potassium) 25 Mg Tablet, 25 MG PO HS, (Reported) Entered as Reported by: SUHA RIOS on 02/24/22324 Magnesium Oxide (Magnesium) 250 Mg Tablet, 500 MG PO HS, (Reported) Entered as Reported by: HILDA SALGADO on 10/06/22 1240 Metformin HCl (Metformin HCl) 500 Mg Tablet, 500 MG PO BID, (Reported) Entered as Reported by: HILDA SALGADO on 02/24/221334 Multivitamin (Multivitamin) 1 Each Tablet, 1 EACH PO HS, (Reported) Entered as Reported by: HILDA SALGADO on 02/24/221334 Oxycodone Hcl (Oxyir Tablet) 5 Mg Tab, 5 MG PO Q4HR PRN for PAIN-SEE DOSE INSTRUCTIONS Prescribed by: FINA WILSON on 10/08/22 120 Pravastatin Sodium (Pravastatin Sodium) 20 Mg Tablet, 20 MG PO DAILY, (Reported) Entered as Reported by: SUHA RIOS on 02/24/22 0404 Rivaroxaban (Xarelto) 20 Mg Tablet, 20 MG PO HS, (Reported) Entered as Reported by: SUHA RIOS on 02/24/22 032 Torsemide (Torsemide) 20 Mg Tablet, 60 MG PO 0700,1300, (Reported) Entered as Reported by: LAMONTE WHITTAKER on 07/02/19 1552 Triamcinolone Acet (Triamcinolone Acetonide 0.1% Cream) 0.1 % Cr, 0 GM TOP BID Prescribed by: FINA WILSON on 10/08/22 120 Review of Systems Review of Systems Constitutional: see HPI Past Mjvmjkm-Wukxvd-Vawsoj Hx Patient Social History Tobacco Use?: Yes Use of E-Cig and/or Vaping dev: No Substance use?: No Alcohol Use?: No Pt feels they are or have been: No Immunizations Up To Date Tetanus Booster (TDap): More than 5yrs First/Initial COVID19 Vaccinat: Unvaccinated Seasonal Allergies Seasonal Allergies: No Past Medical History Surgery/Hospitalization HX: Paroxysmal atrial fibrillation, hypertension, high cholesterol, obstructive sleep apnea, cholecystectomy, vasectomy, GERD, diabetes mellitus without long-term use of insulin, chronic peripheral edema on Lasix Surgeries: Yes (3 neck surgeries, SHOULDER, ) Gallbladder, Vasectomy Respiratory: Yes Sleep Apnea Currently Using CPAP: No Currently Using BIPAP: Yes Cardiac: Yes (PASSED STRESS TEST 2018) Atrial Fibrillation, High Cholesterol, Hypertension Neurological: No Sexually Transmitted Disease: No HIV/AIDS: No Genitourinary: No Gastrointestinal: Yes Gastroesophageal Reflux Musculoskeletal: Yes Arthritis Endocrine: Yes Diabetes, Non-Insulin dep HEENT: No Loss of Vision: Denies Hearing Impairment: Denies Cancer: No Psychosocial: No Integumentary: No Blood Disorders: No Adverse Reaction/Blood Tranf: No (N/A) Family Medical History Cardiovascular disease 19 MOTHER Diabetes mellitus 19 FATHER Hypertension 19 FATHER 19 MOTHER G8 BROTHER Myocardial infarction 19 MOTHER Respiratory disorder 19 MOTHER Physical Exam Vital Signs - First Documented 12/29/22 12:11 Temp 39.3 Pulse 102 Resp 36 B/P (MAP) 154/74 (100) Pulse Ox 92 O2 Delivery Room Air FiO2 92 Capillary Refill : Height: 5'11.00" Weight: 318lbs. 0.0oz. 144.573253pn; 54.00 BMI Method:Stated General Appearance: WD/WN, mild distress (Increased work of breathing) HEENT: normal ENT inspection, pharynx normal Neck: non-tender, full range of motion, supple, normal inspection Respiratory: lungs clear, normal breath sounds, other (Increased work of breathing with retractions) Cardiovascular: no murmur, tachycardia Gastrointestinal: normal bowel sounds, non tender, soft Extremities: other (Significant swelling left lower extremity. There is a small punctate scab type area in the anterior lower rice, ankle. There is hyperemia, erythema and warmth to the touch in this area extending proximally to about the level of the knee. Neurovascular motor and sensory intact. It is tender to palpation.) Neurologic/Psychiatric: alert, oriented x 3 Skin: other (Left leg findings as described above) Focused Exam Lactate Level 12/29/22 12:06: Lactic Acid Level 3.97*H 12/29/22 14:10: Lactic Acid Level 2.93*H Lactic Acid Level Laboratory Tests Test 12/29/22 12:06 12/29/22 14:10 Lactic Acid Level 3.97 MMOL/L (0.50-2.00) *H 2.93 MMOL/L (0.50-2.00) *H Progress/Results/Core Measures Suspected Sepsis SIRS Temperature: Pulse: 102 Respiratory Rate: 36 Laboratory Tests 12/29/22 12:06: White Blood Count 22.7H Blood Pressure 154 /74 Mean: 100 12/29/22 12:06: Lactic Acid Level 3.97*H 12/29/22 14:10: Lactic Acid Level 2.93*H Laboratory Tests 12/29/22 12:06: Creatinine 1.39H, Platelet Count 212, Total Bilirubin 0.6 Results/Orders Lab Results Laboratory Tests Test 12/29/22 12:06 12/29/22 12:17 12/29/22 12:45 12/29/22 13:09 Range/Units White Blood Count 22.7 H 4.3-11.0 10^3/uL Red Blood Count 4.59 4.30-5.52 10^6/uL Hemoglobin 12.2 L 13.3-17.7 g/dL Hematocrit 37 L 40-54 % Mean Corpuscular Volume 81 80-99 fL Mean Corpuscular Hemoglobin 27 25-34 pg Mean Corpuscular Hemoglobin Concent 33 32-36 g/dL Red Cell Distribution Width 13.8 10.0-14.5 % Platelet Count 212 130-400 10^3/uL Mean Platelet Volume 9.5 9.0-12.2 fL Immature Granulocyte % (Auto) 1 % Neutrophils (%) (Auto) 88 H 42-75 % Lymphocytes (%) (Auto) 7 L 12-44 % Monocytes (%) (Auto) 4 0-12 % Eosinophils (%) (Auto) 0 0-10 % Basophils (%) (Auto) 0 0-10 % Neutrophils # (Auto) 19.9 H 1.8-7.8 10^3/uL Lymphocytes # (Auto) 1.6 1.0-4.0 10^3/uL Monocytes # (Auto) 0.9 0.0-1.0 10^3/uL Eosinophils # (Auto) 0.0 0.0-0.3 10^3/uL Basophils # (Auto) 0.1 0.0-0.1 10^3/uL Immature Granulocyte # (Auto) 0.2 H 0.0-0.1 10^3/uL Sodium Level 133 L 135-145 MMOL/L Potassium Level 3.8 3.6-5.0 MMOL/L Chloride Level 96 L 98-107 MMOL/L Carbon Dioxide Level 23 21-32 MMOL/L Anion Gap 14 5-14 MMOL/L Blood Urea Nitrogen 13 7-18 MG/DL Creatinine 1.39 H 0.60-1.30 MG/DL Estimat Glomerular Filtration Rate 59 BUN/Creatinine Ratio 9 Glucose Level 249 H 70-105 MG/DL Lactic Acid Level 3.97 *H 0.50-2.00 MMOL/L Calcium Level 9.4 8.5-10.1 MG/DL Corrected Calcium 9.3 8.5-10.1 MG/DL Total Bilirubin 0.6 0.1-1.0 MG/DL Aspartate Amino Transf (AST/SGOT) 52 H 5-34 U/L Alanine Aminotransferase (ALT/SGPT) 69 H 0-55 U/L Alkaline Phosphatase 77 40-136 U/L Troponin I < 0.30 <0.30 NG/ML Total Protein 7.1 6.4-8.2 GM/DL Albumin 4.1 3.2-4.5 GM/DL SARS-CoV-2 RNA (RT-PCR) Not Detected Not Detecte Blood Gas Puncture Site L wrist Blood Gas Patient Temperature 39.3 Arterial Blood pH 7.44 H 7.37-7.43 Arterial Blood Partial Pressure CO2 41 35-45 MMHG Arterial Blood Partial Pressure O2 66 L 79-93 MMHG Arterial Blood HCO3 28 H 23-27 MMOL/L Arterial Blood Total CO2 29.1 21.0-31.0 MMOL/L Arterial Blood Oxygen Saturation 93 L 94-100 % Arterial Blood Base Excess 3.3 H -2.5-2.5 MMOL/L Suresh Test Blood Gas Ventilator Setting NO Blood Gas Inspired Oxygen 2L Urine Color YELLOW Urine Clarity CLEAR Urine pH 5.5 5-9 Urine Specific [place] 1.010 L 1.016-1.022 Urine Protein NEGATIVE NEGATIVE Urine Glucose (UA) NEGATIVE NEGATIVE Urine Ketones NEGATIVE NEGATIVE Urine Nitrite NEGATIVE NEGATIVE Urine Bilirubin NEGATIVE NEGATIVE Urine Urobilinogen 0.2 < = 1.0 MG/DL Urine Leukocyte Esterase NEGATIVE NEGATIVE Urine RBC (Auto) 1+ H NEGATIVE Urine RBC 10-25 H /HPF Urine WBC NONE /HPF Urine Crystals NONE /LPF Urine Bacteria NEGATIVE /HPF Urine Casts NONE /LPF Urine Mucus SMALL H /LPF Urine Culture Indicated CULTURE PENDING Test 12/29/22 14:10 Range/Units Lactic Acid Level 2.93 *H 0.50-2.00 MMOL/L My Orders Orders - RAMIREZ RAO DO Cbc With Automated Diff (12/29/22 12:07) Comprehensive Metabolic Panel (12/29/22 12:07) Blood Culture (12/29/22 12:07) Urinalysis (12/29/22 12:07) Urine Culture (12/29/22 12:07) Chest 1 View Ap/Pa Only (12/29/22 12:07) Ed Iv/Invasive Line Start (12/29/22 12:07) Ekg Tracing (12/29/22 12:07) Vital Signs Adult Sepsis Patie Q15M (12/29/22 12:07) O2 (12/29/22 12:07) Remove Rings In Anticipation O (12/29/22 12:07) Lactic Acid Analyzer (12/29/22 12:07) Ceftriaxone Iv/Im (Ceftriaxone Iv/Im) (12/29/22 12:15) Azithromycin Injection (Azithromycin Inj (12/29/22 12:15) Troponin I Fs (12/29/22 12:07) Covid 19 Inhouse Test (12/29/22 12:09) Ct Angio Chest W (12/29/22 12:09) Fentanyl Injection (Fentanyl Injection (12/29/22 12:30) Arterial Blood Gas (12/29/22 12:40) Ns Iv 1000 Ml (Ns Iv 1000 Ml) (12/29/22 13:00) Iohexol Injection (Omnipaque 350 Mg/Ml 1 (12/29/22 13:15) Received Contrast (Hold Metformin- Contr (12/29/22 13:15) Ns (Ivpb) 100 Ml (Sodium Chloride 0.9% 1 (12/29/22 13:15) Acetaminophen Tablet (Acetaminophen Ta (12/29/22 13:30) Ondansetron Injection (Ondansetron Inj (12/29/22 14:00) Ed Admission (Communication) (12/29/22 14:07) Medications Given in ED Vital Signs/I&O 12/29/22 12/29/22 12/29/22 12:11 12:11 14:36 Temp 39.3 39.4 Pulse 102 91 Resp 36 24 B/P (MAP) 154/74 (100) 111/68 Pulse Ox 92 92 95 O2 Delivery Room Air Room Air Room Air FiO2 92 12/29/22 23:59 Intake Total 50 ml Balance 50 ml Capillary Refill : Blood Pressure Mean: 100 Critical Care Note Critical Care Total Time (minutes) 60 Departure Communication (Admissions) The patient is initially hypoxic but otherwise hemodynamically stable. He has mild to moderate respiratory distress which improved with oxygen alone. His chest x-ray is clear. I did CT angiography to rule out PE given his significant left lower extremity swelling and redness. Unfortunately ultrasound is not available here today. CT angiography is negative. There is no focal obvious pneumonias or effusions, lung masses or other acute pulmonary abnormalities. His EKG is nonischemic his troponin is negative. He does have significant elevation of his white blood cell count with a left shift. I think his left leg likely has cellulitis and he may have pneumonitis from baling hay versus viral or bacterial pneumonia that has yet to manifest on imaging. Gave him Zithromax and Rocephin as he does meet the definition of sepsis. His lactic acid is significantly elevated. He is given IV fluids but does not meet criteria for 30 cc/kg bolus at this time. He will be admitted to cardiac stepdown. Dr. Wilson accepts the patient in admission. Impression Primary Impression: Respiratory failure Qualified Codes: J96.01 - Acute respiratory failure with hypoxia Additional Impression: Left leg swelling Disposition: 30 STILL A PATIENT Condition: Stable Departure-Patient Inst. Referrals: SELF,TERRA BAINS (PCP) Primary Care Physician RAMIREZ RAO DO Dec 29, 2022 13:06
[2022-12-29] MEDS ORDERED: IOHEXOL 350 MG/ML 100 ML (OMNIPAQUE 350) VIAL IV ONE (13:15)
[2022-12-29] MEDS ORDERED: HOLD METFORMIN - RECEIVED CONTRAST 20 ML VIAL IV SCH (13:15)
[2022-12-29] MEDS ORDERED: NS 100 ML (IVPB) BAG IV ONE (13:15)
[2022-12-29 13:19] LABS: BILIRUBIN,URINE NEGATIVE (NEGATIVE); CLARITY,URINE CLEAR; COLOR,URINE YELLOW; GLUCOSE, URINE (UA) NEGATIVE (NEGATIVE); KETONES,URINE NEGATIVE (NEGATIVE); LEUKOCYTE ESTERASE ,URINE NEGATIVE (NEGATIVE); NITRITE,URINE NEGATIVE (NEGATIVE); PH,URINE 5.5 (5-9); PROTEIN,URINE NEGATIVE (NEGATIVE)
[2022-12-29 13:24] LABS: BACTERIA,URINE NEGATIVE /HPF
[2022-12-29] MEDS ORDERED: ACETAMINOPHEN 500 MG TABLET PO ONE (13:30)
--- NOTE | 2022-12-29 13:38 | Diagnostic Imaging Report ---
INDICATION: Acute-onset shortness of breath. COMPARISON: Exam compared with radiograph of 10/06/2012. FINDINGS: Upper limits heart size and mild prominence of the venous structures is unchanged from prior. No focal consolidation or brie edema. No effusion or pneumothorax. IMPRESSION: Stable chest. Dictated by: Dictated on workstation # [id number]
--- NOTE | 2022-12-29 13:45 | Diagnostic Imaging Report ---
PROCEDURE: CT angiography of the chest with contrast. TECHNIQUE: Multiple contiguous axial images were obtained through the chest after uneventful bolus administration of intravenous contrast. 3D reconstructed CTA MIP acquisitions were also performed. Auto Exposure Controls were utilized during the CT exam to meet ALARA standards for radiation dose reduction. INDICATION: Dyspnea, swelling. COMPARISON: 02/24/2022. FINDINGS: Right paratracheal lymph nodes appear slightly less prominent than the prior examination. In particular, dominant right paratracheal lymph node measures 1.3 cm in short dimension when previously this measured 1.7 cm when measuring in the similar plane and dimension. No new adenopathy within the chest. Bilateral gynecomastia. No aneurysmal dilatation of the thoracic aorta. The heart is within normal limits in size. No significant pericardial effusion. No significant pleural effusion. The trachea is patent. No pneumothorax. The lungs are clear when accounting for respiratory motion and artifact. The pulmonary arteries are not optimally evaluated secondary to respiratory motion. No central pulmonary embolus. Majority of the segmental pulmonary arteries also appear unremarkable. Some of the segmental pulmonary arteries and nearly all of the subsegmental pulmonary arteries are not well evaluated secondary to respiratory motion. Cholecystectomy. The liver and spleen appear enlarged. Visualized upper abdomen is otherwise unremarkable. Scattered osseous degenerative changes without acute osseous abnormality. IMPRESSION: No definite pulmonary embolus within the limits of the exam, though segmental and subsegmental pulmonary arteries are not optimally evaluated with subsegmental pulmonary arteries unable to be evaluated on this examination. Hepatosplenomegaly. Improved right paratracheal adenopathy, of uncertain etiology. Dictated by: Dictated on workstation # [id number]
[2022-12-29] MEDS ORDERED: ONDANSETRON INJECTION 4 MG/2 ML (SDV) IVP ONE (14:00)
[2022-12-29] MEDS ORDERED: ENOXAPARIN 100 MG/1 ML SYRINGE SC SCH (16:00)
[2022-12-29] MEDS ORDERED: ACETAMINOPHEN 325 MG TABLET PO PRN (16:00)
[2022-12-29] MEDS ORDERED: diphenhydrAMINE INJ 50 MG/ML VIAL IVP PRN (16:00)
[2022-12-29] MEDS ORDERED: MELATONIN 3 MG TABLET PO PRN (16:00)
[2022-12-29] MEDS ORDERED: diphenhydrAMINE 25 MG TABLET PO PRN (16:00)
[2022-12-29] MEDS ORDERED: BISACODYL 10 MG SUPPOSITORY PR PRN (16:00)
[2022-12-29] MEDS ORDERED: cefTRIAXone IV/IM 1,000 MG in NS (IVPB) 50 ML 50 ML IV SCH (16:00)
[2022-12-29] MEDS ORDERED: oxyCODONE IMMEDIATE RELEASE 5 MG TABLET PO PRN (16:00)
[2022-12-29] MEDS ORDERED: ONDANSETRON 4 MG ORAL DISSOLVE TABLET PO PRN (16:00)
[2022-12-29] MEDS ORDERED: ANTACID SUSPENSION 30 ML UDC PO PRN (16:00)
[2022-12-29] MEDS ORDERED: LACTULOSE SYRUP 10GM/15ML 30ML UDC PO PRN (16:00)
[2022-12-29] MEDS ORDERED: ONDANSETRON INJECTION 4 MG/2 ML (SDV) IV PRN (16:00)
[2022-12-29] MEDS ORDERED: ENOXAPARIN 300 MG/3 ML MULTI-DOSE VIAL SQ SCH (16:30)
[2022-12-29] MEDS: inSUlin ASPART 1 UNIT/0.01 ML (PER UNIT) SC SCH ×2 (16:47→21:49)
--- NOTE | 2022-12-29 17:28 | Diagnostic Imaging Report ---
PROCEDURE: US left lower extremity venous. TECHNIQUE: Multiple real-time grayscale images were obtained over the left lower extremity in various projections. Additional duplex Doppler and color Doppler images were also obtained. INDICATION: Left leg swelling. COMPARISON: None available. FINDINGS: Normal flow, compression, and augmentation within the visualized deep venous structures of the left lower extremity. However, the deep venous structures in the left calf are not optimally visualized secondary to patient body habitus. IMPRESSION: No evidence of deep venous thrombosis within the left lower extremity within the limits of the exam. Dictated by: Dictated on workstation # [id number]
[2022-12-29] MEDS: dexAMETHasone INJ 4 MG/ML SDV IV SCH (21:48)
[2022-12-29] MEDS: DOCUSATE SODIUM 100 MG CAPSULE PO SCH (21:48)
[2022-12-30] VITALS (7 sets, daily range): BP systolic 111–163; BP diastolic 55–84
[2022-12-30 04:49] LABS: BASOPHILS % (AUTO) 0 % (0-10); EOSINOPHILS % (AUTO) 0 % (0-10); HEMATOCRIT 36 % (40-54); HEMOGLOBIN 11.6 g/dL (13.3-17.7); LYMPHOCYTES # (AUTO) 1.8 10^3/uL (1.0-4.0); LYMPHOCYTES % (AUTO) 8 % (12-44); MEAN CORPUSCULAR HEMOGLOBIN 27 pg (25-34); MEAN CORPUSCULAR HGB CONC 33 g/dL (32-36); MEAN CORPUSCULAR VOLUME 81 fL (80-99); MEAN PLATELET VOLUME 10.6 fL (9.0-12.2); MONOCYTES # (AUTO) 0.9 10^3/uL (0.0-1.0); MONOCYTES % (AUTO) 4 % (0-12); NEUTROPHILS # (AUTO) 18.5 10^3/uL (1.8-7.8); NEUTROPHILS % (AUTO) 86 % (42-75); PLATELET COUNT 259 10^3/uL (130-400); WHITE BLOOD COUNT 21.4 10^3/uL (4.3-11.0)
[2022-12-30 05:12] LABS: ALBUMIN 3.7 GM/DL (3.2-4.5); BILIRUBIN,TOTAL 0.5 MG/DL (0.1-1.0); CALCIUM 8.8 MG/DL (8.5-10.1); CREATININE SERUM 1.62 MG/DL (0.60-1.30); POTASSIUM 3.8 MMOL/L (3.6-5.0); TOTAL PROTEIN 6.9 GM/DL (6.4-8.2)
[2022-12-30 05:19] LABS: BAND NEUTROPHILS 19 %; BASOPHILS % (MANUAL) 0 %; EOSINOPHILS % (MANUAL) 0 %; LYMPHOCYTES % (MANUAL) 5 %; MONOCYTES % (MANUAL) 2 %; NEUTROPHILS % (MANUAL) 70 %; REACTIVE LYMPHOCYTES 4 %
[2022-12-30 05:20] LABS: RBC MORPH NORMAL
[2022-12-30] MEDS: inSUlin ASPART 1 UNIT/0.01 ML (PER UNIT) SC SCH ×4 (05:33→19:41)
[2022-12-30] MEDS ORDERED: ENOXAPARIN 60 MG/0.6 ML SYRINGE SC SCH (06:00)
[2022-12-30] MEDS: DOCUSATE SODIUM 100 MG CAPSULE PO SCH ×2 (08:02→19:42)
[2022-12-30] MEDS: AZITHROMYCIN 250 MG TABLET PO SCH (08:04)
[2022-12-30] MEDS: dexAMETHasone INJ 4 MG/ML SDV IV SCH ×2 (08:04→19:42)
[2022-12-30] MEDS ORDERED: RT-ALBUINH INH (09:46)
[2022-12-30] MEDS ORDERED: TR1C15 TP (09:46)
[2022-12-30] MEDS ORDERED: DRON400T6 PO (09:46)
[2022-12-30] MEDS ORDERED: TRM50T PO (10:56)
[2022-12-30] MEDS: cefTRIAXone IV/IM 1,000 MG in NS (IVPB) 50 ML 50 ML IV SCH (11:18)
[2022-12-30] MEDS ORDERED: RT-ALBUTEROL HFA 8.5 GM INHALER IH PRN (11:30)
[2022-12-30] MEDS ORDERED: TRIAMCINOLONE 0.1% CR (KENALOG) 15 GM TUBE TP PRN (11:30)
--- NOTE | 2022-12-30 12:10 | History & Physical ---
BECCA BULLOCK 12/30/22 1210: History of Present Illness History of Present Illness Reason for visit/HPI [place] is a 57 year old male with a past medical history of atrial fibrillation, HTN, obstructive sleep apnea,and diabetes dependent on insulin. He came into the ED yesterday morning with shortness of breath when he was baling hay. This morning when I spoke to him he says he is feeling well and denies nausea, vomiting, headache, chest pain, shortness of breath. Date of Admission Dec 29, 2022 at 15:35 Date Seen by a Provider: Dec 30, 2022 Time Seen by a Provider: 11:30 I consulted on this patient on 12/30/22 12:04 Attending Physician Satish,Kumar BAINS Admitting Physician Admitting Physician: Ana Rosa Wilson DO Attending Physician: Ana Rosa Wilson DO Consult Allergies and Home Medications Allergies Coded Allergies: cyclobenzaprine (Verified Allergy, Mild, ITCHING, 07/02/19) lisinopril (Verified Allergy, Mild, COUGH, 07/02/19) Patient Home Medication List Home Medication List Reviewed: Yes Albuterol Sulfate (Ventolin Hfa) 1 Puff Puff, 1-2 PUFF INH Q6H PRN for SHORTNESS OF BREATH, (Reported) Entered as Reported by: AGUSTINA DOUGLAS on 12/30/22 0946 Last Action: Continued Allopurinol (Allopurinol) 300 Mg Tablet, 300 MG PO DAILY, (Reported) Entered as Reported by: HILDA SALGADO on 02/24/221334 Last Action: Continued Amlodipine Besylate (Amlodipine Besylate) 10 Mg Tablet, 10 MG PO HS, (Reported) Entered as Reported by: HILDA SALGADO on 10/06/22 124 Last Action: Continued Aspirin (Aspirin EC) 81 Mg Tablet.dr, 81 MG PO DAILY, (Reported) Entered as Reported by: HILDA SALGADO on 02/24/221334 Last Action: Continued Carvedilol (Carvedilol) 25 Mg Tablet, 25 MG PO BID, (Reported) Entered as Reported by: HILDA SALGADO on 10/06/22 124 Last Action: Converted Celecoxib (Celecoxib) 200 Mg Capsule, 200 MG PO DAILY, (Reported) Entered as Reported by: HILDA SALGADO on 10/19/22 1335 Last Action: Held Dronedarone HCl (Multaq) 400 Mg Tablet, 400 MG PO BID, (Reported) Entered as Reported by: AGUSTINA DOUGLAS on 12/30/22 0946 Last Action: Continued Fenofibrate Nanocrystallized (Fenofibrate) 145 Mg Tablet, 145 MG PO DAILY, (Reported) Entered as Reported by: HILDA SALGADO on 02/24/221334 Last Action: Converted Losartan Potassium (Losartan Potassium) 25 Mg Tablet, 25 MG PO HS, (Reported) Entered as Reported by: SUHA RIOS on 02/24/22 032 Last Action: Continued Magnesium Oxide (Magnesium) 250 Mg Tablet, 500 MG PO HS, (Reported) Entered as Reported by: HILDA SALGADO on 10/06/22 1240 Last Action: Converted Metformin HCl (Metformin HCl) 500 Mg Tablet, 500 MG PO BID, (Reported) Entered as Reported by: HILDA SALGADO on 02/24/221334 Last Action: Continued Multivitamin (Multivitamin) 1 Each Tablet, 1 EACH PO HS, (Reported) Entered as Reported by: HILDA SALGADO on 02/24/221334 Last Action: Converted Pravastatin Sodium (Pravastatin Sodium) 20 Mg Tablet, 20 MG PO DAILY, (Reported) Entered as Reported by: SUHA RIOS on 02/24/22 0404 Last Action: Converted Rivaroxaban (Xarelto) 20 Mg Tablet, 20 MG PO HS, (Reported) Entered as Reported by: SUHA RIOS on 02/24/22324 Last Action: Continued Torsemide (Torsemide) 20 Mg Tablet, 60 MG PO BID, (Reported) Entered as Reported by: LAMONTE WHITTAKER on 07/02/19 1552 Last Action: Converted Tramadol HCl (Tramadol HCl) 50 Mg Tablet, 50 MG PO BID PRN for PAIN-MODERATE (5- 7), (Reported) Entered as Reported by: AGUSTINA DOUGLAS on 12/30/22 1056 Last Action: Continued Triamcinolone Acet (Triamcinolone Acetonide 0.1% Cream) 0.1 % Cr, 1 APPLIC TP BID PRN for ITCHING, (Reported) Entered as Reported by: AGUSTINA DOUGLAS on 12/30/22 0946 Last Action: Continued Discontinued Medications Cefdinir (Cefdinir) 300 Mg Capsule, 300 MG PO BID Discontinued Reason: No Longer Taking Prescribed by: ANA ROSA WILSON on 10/08/221204 Last Action: Discontinued Doxycycline Hyclate (Doxycycline Hyclate) 100 Mg Tablet, 100 MG PO BID Discontinued Reason: No Longer Taking Prescribed by: ANA ROSA WILSON on 10/08/221204 Last Action: Discontinued Dronedarone HCl (Multaq) 400 Mg Tablet, 400 MG PO BID, (Reported) Discontinued Reason: Duplicate Order Entered as Reported by: SUHA RIOS on 02/24/22 0325 Last Action: Discontinued Oxycodone Hcl (Oxyir Tablet) 5 Mg Tab, 5 MG PO Q4HR PRN for PAIN-SEE DOSE INSTRUCTIONS Discontinued Reason: No Longer Taking Prescribed by: ANA ROSA WILSON on 10/08/221205 Last Action: Discontinued Triamcinolone Acet (Triamcinolone Acetonide 0.1% Cream) 0.1 % Cr, 0 GM TOP BID Discontinued Reason: Duplicate Order Prescribed by: ANA ROSA WILSON on 10/08/221204 Last Action: Discontinued Past Awwizqf-Aamhzf-Onencc Hx Patient Social History Tobacco Use?: Yes Smokeless type used: Chew Smokeless Tobacco Frequency: Current Everyday User Use of E-Cig and/or Vaping dev: No Substance use?: No Alcohol Use?: No Pt feels they are or have been: No Immunizations Up To Date Date of Influenza Vaccine: May 12, 2020 First/Initial COVID19 Vaccinat: Unvaccinated Tetanus Booster (TDap): Less Than 5 Years Hepatitis A: No Hepatitis B: No Seasonal Allergies Seasonal Allergies: No Current Status Advance Directives: No Communicates: Verbally Primary Language: Vietnamese Preferred Spoken Language: Vietnamese Is interpretation needed?: No Sensory deficits: Vision impairment Implanted or Applied Medical D: Orthopedic hardware Past Medical History Surgeries: Gallbladder, Vasectomy Sleep Apnea Currently Using CPAP: No Currently Using BIPAP: Yes Atrial Fibrillation, High Cholesterol, Hypertension Sexually Transmitted Disease: No HIV/AIDS: No Gastroesophageal Reflux Arthritis Diabetes, Non-Insulin dep Loss of Vision: Denies Hearing Impairment: Denies Blood Disorders: No Adverse Reaction/Blood Tranf: No (N/A) Family Medical History Cardiovascular disease 19 MOTHER Diabetes mellitus 19 FATHER Hypertension 19 FATHER 19 MOTHER G8 BROTHER Myocardial infarction 19 MOTHER Respiratory disorder 19 MOTHER Review of Systems Constitutional: no symptoms reported, see HPI EENTM: no symptoms reported Respiratory: no symptoms reported, see HPI Cardiovascular: see HPI, edema Gastrointestinal: no symptoms reported, see HPI Skin: change in color Physical Exam Vital Signs Vital Signs - First Documented 12/29/22 12/29/22 12:11 15:38 Temp 39.3 Pulse 102 Resp 36 B/P (MAP) 154/74 (100) Pulse Ox 92 O2 Delivery Room Air O2 Flow Rate 2.00 FiO2 92 Capillary Refill : Height, Weight, BMI Height: 5'11.00" Weight: 318lbs. 0.0oz. 144.890254uc; 49.47 BMI Method:Stated General Appearance: No Apparent Distress, WD/WN Neck: Normal Inspection, Supple Respiratory: Lungs Clear, Normal Breath Sounds, No Accessory Muscle Use, No Respiratory Distress Cardiovascular: Regular Rate, Rhythm, No Murmur, Normal Peripheral Pulses Extremity: Calf Tenderness (tenderness to palpation of posterior left lower leg), Swelling Skin: Warm/Dry, Erythema (erythema of left lower leg that spans from above ankle up to just below the knee. well demarcated) Assessment/Plan Assessment and Plan Assessment and Plan - Respiratory distress > steroid and antibiotic therapy to cover possible pneumonitis/pneumonia > Respiratory function improved this morning, no acute distress - Sepsis > possibly secondary to lower leg infection from wound present on leg > wound care on board > continue antibiotic therapy with Zithromax and Rocephin - Acute kidney injury > Upward Cr trend 1.39-->1.62 > continue to trend Cr - Hypertension > Continue ambulatory medications - Diabetes > Sliding scale protocol - Atrial fibrillation > continue ambulatory medications Clinical Quality Measures DVT/VTE Risk/Contraindication: Contraindications-Mechi: Other *list below* Other: poss dvt ANA ROSA WILSON DO 12/31/22 0434: History of Present Illness History of Present Illness Reason for visit/HPI Chief complaint: Acute respiratory failure with fever with left lower lower leg cellulitis HPI: This is a 57-year-old male known to me from prior admission who presented to the ER with fever and acute respiratory failure after bailing moldy hay. He was also noted to have severe left lower extremity cellulitis. He has had recurrent cellulitis of the left leg since he injured it 2 years ago. Wound care will see the wound on her left lower leg. Currently he is doing much better and does not require the oxygen so he will be moved downstairs to fourth floor. Allergies and Home Medications Allergies Coded Allergies: cyclobenzaprine (Verified Allergy, Mild, ITCHING, 07/02/19) lisinopril (Verified Allergy, Mild, COUGH, 07/02/19) Patient Home Medication List Albuterol Sulfate (Ventolin Hfa) 1 Puff Puff, 1-2 PUFF INH Q6H PRN for SHORTNESS OF BREATH, (Reported) Entered as Reported by: AGUSTINA DOUGLAS on 12/30/22945 Last Action: Continued Allopurinol (Allopurinol) 300 Mg Tablet, 300 MG PO DAILY, (Reported) Entered as Reported by: HILDA SALGADO on 02/24/221334 Last Action: Continued Amlodipine Besylate (Amlodipine Besylate) 10 Mg Tablet, 10 MG PO HS, (Reported) Entered as Reported by: HILDA SALGADO on 10/06/221239 Last Action: Continued Aspirin (Aspirin EC) 81 Mg Tablet.dr, 81 MG PO DAILY, (Reported) Entered as Reported by: HILDA SALGADO on 02/24/221334 Last Action: Continued Carvedilol (Carvedilol) 25 Mg Tablet, 25 MG PO BID, (Reported) Entered as Reported by: HILDA SALGADO on 10/06/221239 Last Action: Converted Celecoxib (Celecoxib) 200 Mg Capsule, 200 MG PO DAILY, (Reported) Entered as Reported by: HILDA SALGADO on 02/24/221334 Last Action: Held Dronedarone HCl (Multaq) 400 Mg Tablet, 400 MG PO BID, (Reported) Entered as Reported by: AGUSTINA DOUGLAS on 12/30/22945 Last Action: Continued Fenofibrate Nanocrystallized (Fenofibrate) 145 Mg Tablet, 145 MG PO DAILY, (Reported) Entered as Reported by: HILDA SALGADO on 02/24/221334 Last Action: Converted Losartan Potassium (Losartan Potassium) 25 Mg Tablet, 25 MG PO HS, (Reported) Entered as Reported by: SUHA RIOS on 02/24/22 8335 Last Action: Continued Magnesium Oxide (Magnesium) 250 Mg Tablet, 500 MG PO HS, (Reported) Entered as Reported by: HILDA SALGADO on 10/06/221239 Last Action: Converted Metformin HCl (Metformin HCl) 500 Mg Tablet, 500 MG PO BID, (Reported) Entered as Reported by: HILDA SALGADO on 02/24/22 1335 Last Action: Continued Multivitamin (Multivitamin) 1 Each Tablet, 1 EACH PO HS, (Reported) Entered as Reported by: HILDA SALGADO on 02/24/22 1335 Last Action: Converted Pravastatin Sodium (Pravastatin Sodium) 20 Mg Tablet, 20 MG PO DAILY, (Reported) Entered as Reported by: SUHA RIOS on 02/24/22 0404 Last Action: Converted Rivaroxaban (Xarelto) 20 Mg Tablet, 20 MG PO HS, (Reported) Entered as Reported by: SUHA RIOS on 02/24/22 032 Last Action: Continued Torsemide (Torsemide) 20 Mg Tablet, 60 MG PO BID, (Reported) Entered as Reported by: LAMONTE WHITTAKER on 07/02/19 1552 Last Action: Converted Tramadol HCl (Tramadol HCl) 50 Mg Tablet, 50 MG PO BID PRN for PAIN-MODERATE (5- 7), (Reported) Entered as Reported by: AGUSTINA DOUGLAS on 12/30/22 1056 Last Action: Continued Triamcinolone Acet (Triamcinolone Acetonide 0.1% Cream) 0.1 % Cr, 1 APPLIC TP BID PRN for ITCHING, (Reported) Entered as Reported by: AGUSTINA DOUGLAS on 12/30/22 0946 Last Action: Continued Discontinued Medications Cefdinir (Cefdinir) 300 Mg Capsule, 300 MG PO BID Discontinued Reason: No Longer Taking Prescribed by: ANA ROSA WILSON on 10/08/221204 Last Action: Discontinued Doxycycline Hyclate (Doxycycline Hyclate) 100 Mg Tablet, 100 MG PO BID Discontinued Reason: No Longer Taking Prescribed by: ANA ROSA WILSON on 10/08/221204 Last Action: Discontinued Dronedarone HCl (Multaq) 400 Mg Tablet, 400 MG PO BID, (Reported) Discontinued Reason: Duplicate Order Entered as Reported by: SUHA RIOS on 02/24/22324 Last Action: Discontinued Oxycodone Hcl (Oxyir Tablet) 5 Mg Tab, 5 MG PO Q4HR PRN for PAIN-SEE DOSE INSTRUCTIONS Discontinued Reason: No Longer Taking Prescribed by: ANA ROSA WILSON on 6/2/23 1206 Last Action: Discontinued Triamcinolone Acet (Triamcinolone Acetonide 0.1% Cream) 0.1 % Cr, 0 GM TOP BID Discontinued Reason: Duplicate Order Prescribed by: ANA ROSA WILSON on 10/08/225 Last Action: Discontinued Past Jmvvwmp-Nkcrdy-Mgshih Hx Patient Social History Marrital Status: Employed/Student: employed Smoking Status: Never a Smoker Past Medical History Atrial Fibrillation, Hypertension Family Medical History Cardiovascular disease 19 MOTHER Diabetes mellitus 19 FATHER Hypertension 19 FATHER 19 MOTHER G8 BROTHER Myocardial infarction 19 MOTHER Respiratory disorder 19 MOTHER Review of Systems Constitutional: see HPI, fever, malaise, weakness Physical Exam General Appearance: No Apparent Distress, WD/WN, Chronically ill, Obese Respiratory: No Respiratory Distress, Accessory Muscle Use, Decreased Breath Sounds, Wheezing Cardiovascular: Regular Rate, Rhythm Assessment/Plan Assessment and Plan Acute respiratory failure with left lower leg cellulitis Plan: Moved to fourth floor Consult Dr. Ellison Problems: (1) Respiratory failure Qualifiers: Qualified Codes: J96.01 - Acute respiratory failure with hypoxia (2) Fever in adult Status: Acute (3) Sepsis Status: Acute (4) Left leg swelling (5) Hypoxia Status: Acute (6) Abrasion, left lower leg, initial encounter Status: Acute Admission Diagnosis Admission Status: Inpatient Order (span 2 midnights) Reason for Inpatient Admission: Respiratory failure with left lower leg cellulitis Supervisory-Addendum Brief Verification & Attestation Participated in pt care: history, MDM, physical Personally performed: exam, history, MDM, supervision of care Care discussed with: Medical Student Procedures: n/a Results interpretation: Verified all documentation Verification and Attestation of Medical Student E/M Service A medical student performed and documented this service in my presence. I reviewed and verified all information documented by the medical student and made modifications to such information, when appropriate. I personally performed the physical exam and medical decision making. Ana Rosa Wilson, Dec 31, 2022,04:34 BECCA BULLOCK Dec 30, 2022 12:10 ANA ROSA WILSON DO Dec 31, 2022 04:34
--- NOTE | 2022-12-30 14:42 | Wound Care Assessment ---
Wound Care Assessment Date Seen by Provider: Dec 30, 2022 Time Seen by Provider: 12:00 Chief Complaint LLE swelling and ulcer HPI This 57 year old gentleman was admitted to the hospital with respiratory distress and LE edema. 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 He is morbidly obese with chronic lymphdeme and hyperpigmentation. He has a small opening that is weeping to anterior rice and signs of bullous venous stasis. Review of Systems Pulmonary: Dyspnea Cardiovascular: Edema Exam Vital Signs Date Time Temp Pulse Resp B/P (MAP) Pulse Ox O2 Delivery O2 Flow Rate FiO2 12/30/22 13:00 94 12/30/22 11:17 36.8 18 158/84 (108) 97 Room Air 12/30/22 04:00 21.00 12/29/22 19:12 21 Capillary Refill : General Appearance: no apparent distress, obese HEENT: other (normal hearing) Neck: full range of motion Respiratory: no respiratory distress, no accessory muscle use Extremities: pedal edema Neurologic/Psychiatric: alert, normal mood/affect, oriented x 3 Skin Character: bullous, erythema Wound assessment: 0.1x1x0.1cm. The epithelialization is none. There is no tunneling or undermining. Drainag is large and serosanguinous. Granulation is none. Necrotic is none. Margins flat Results Laboratory Tests 12/29/22 16:34: Glucometer 193H 12/29/22 17:10: Lactic Acid Level 1.84 12/29/22 21:36: Glucometer 192H 12/30/22 04:20: White Blood Count 21.4H, Red Blood Count 4.37, Hemoglobin 11.6L, Hematocrit 36L, Mean Corpuscular Volume 81, Mean Corpuscular Hemoglobin 27, Mean Corpuscular Hemoglobin Concent 33, Red Cell Distribution Width 14.0, Platelet Count 259, Mean Platelet Volume 10.6, Immature Granulocyte % (Auto) 1, Neutrophils (%) (Auto) 86H, Lymphocytes (%) (Auto) 8L, Monocytes (%) (Auto) 4, Eosinophils (%) (Auto) 0, Basophils (%) (Auto) 0, Neutrophils # (Auto) 18.5H, Lymphocytes # (Auto) 1.8, Monocytes # (Auto) 0.9, Eosinophils # (Auto) 0.0, Basophils # (Auto) 0.0, Immature Granulocyte # (Auto) 0.2H, Neutrophils % (Manual) 70, Lymphocytes % (Manual) 5, Monocytes % (Manual) 2, Eosinophils % (Manual) 0, Basophils % (Manual) 0, Band Neutrophils 19, Reactive Lymphocytes 4, Blood Morphology Comment NORMAL, Sodium Level 133L, Potassium Level 3.8, Chloride Level 100, Carbon Dioxide Level 24, Anion Gap 9, Blood Urea Nitrogen 16, Creatinine 1.62H, Estimat Glomerular Filtration Rate 50, BUN/Creatinine Ratio 10, Glucose Level 160H, Calcium Level 8.8, Corrected Calcium 9.0, Total Bilirubin 0.5, Aspartate Amino Transf (AST/SGOT) 34, Alanine Aminotransferase (ALT/SGPT) 55, Alkaline Phosphatase 65, Total Protein 6.9, Albumin 3.7 12/30/22 11:05: Glucometer 176H Assessment/Plan/Dx Assessment: 1. Non-pressure ulcer L. anterior calf 2. Venous stasis with inflammation 3. Obesity related lymphedema 4. Possible cellulitis (vs. inflammation) Plan: 1. Cleanse daily and dress with silver alginate, barrier and BFD. Elevation recommended 2. Compression indicated per PCP as outpatient 3. Weight loss advisable 4. Patient currently on antibiotics. USMAN FUCHS MD Dec 30, 2022 14:42
--- NOTE | 2022-12-30 16:39 | Consultation-Cardiology ---
HPI-Cardiology Cardiology Consultation Date of Consultation 12/30/22 Date of Admission Time Seen by Provider: 12:00 Indication: Shortness of breath HPI 57-year-old gentleman with history of paroxysmal atrial fibrillation, reported that he was mowing hay and became increasingly short of breath, diaphoretic. Patient was admitted and noted to have leukocytosis, so far work-up has been negative, for the past 2 days he had recurrent ulcer on his left leg. He denied any chest pain. No syncope. Home Medications & Allergies Allergies: Coded Allergies: cyclobenzaprine (Verified Allergy, Mild, ITCHING, 07/02/19) lisinopril (Verified Allergy, Mild, COUGH, 07/02/19) Home Medication List Reviewed: Yes OWY-Bugdzs-Hcjobm Hx Patient Social History Marital Status: Employed/Student: employed Type Used: Smokeless Tobacco 2nd Hand Smoke Exposure: No Recent Hopitalizations: No Alcohol Use?: No Immunizations Up To Date Tetanus Booster (TDap): More than 5yrs Date of Influenza Vaccine: May 12, 2020 Past Medical History Discussed below Family Medical History Significant Family History: Heart Disease Family History: Cardiovascular disease 19 MOTHER Diabetes mellitus 19 FATHER Hypertension 19 FATHER 19 MOTHER G8 BROTHER Myocardial infarction 19 MOTHER Respiratory disorder 19 MOTHER Review of Systems-General Review of Systems Constitutional: no symptoms reported, see HPI EENTM: no symptoms reported Respiratory: no symptoms reported, see HPI, dyspnea on exertion, short of breath Cardiovascular: see HPI, edema Gastrointestinal: no symptoms reported, see HPI Genitourinary: no symptoms reported, see HPI Musculoskeletal: no symptoms reported, see HPI Skin: change in color Psychiatric/Neurological: No Symptoms Reported, See HPI Reviewed Test Results Reviewed Test Results Lab Laboratory Tests Test 12/29/22 17:10 12/29/22 21:36 12/30/22 04:20 12/30/22 11:05 Range/Units Lactic Acid Level 1.84 0.50-2.00 MMOL/L Glucometer 192 H 176 H 70-110 MG/DL White Blood Count 21.4 H 4.3-11.0 10^3/uL Red Blood Count 4.37 4.30-5.52 10^6/uL Hemoglobin 11.6 L 13.3-17.7 g/dL Hematocrit 36 L 40-54 % Mean Corpuscular Volume 81 80-99 fL Mean Corpuscular Hemoglobin 27 25-34 pg Mean Corpuscular Hemoglobin Concent 33 32-36 g/dL Red Cell Distribution Width 14.0 10.0-14.5 % Platelet Count 259 130-400 10^3/uL Mean Platelet Volume 10.6 9.0-12.2 fL Immature Granulocyte % (Auto) 1 % Neutrophils (%) (Auto) 86 H 42-75 % Lymphocytes (%) (Auto) 8 L 12-44 % Monocytes (%) (Auto) 4 0-12 % Eosinophils (%) (Auto) 0 0-10 % Basophils (%) (Auto) 0 0-10 % Neutrophils # (Auto) 18.5 H 1.8-7.8 10^3/uL Lymphocytes # (Auto) 1.8 1.0-4.0 10^3/uL Monocytes # (Auto) 0.9 0.0-1.0 10^3/uL Eosinophils # (Auto) 0.0 0.0-0.3 10^3/uL Basophils # (Auto) 0.0 0.0-0.1 10^3/uL Immature Granulocyte # (Auto) 0.2 H 0.0-0.1 10^3/uL Neutrophils % (Manual) 70 % Lymphocytes % (Manual) 5 % Monocytes % (Manual) 2 % Eosinophils % (Manual) 0 % Basophils % (Manual) 0 % Band Neutrophils 19 % Reactive Lymphocytes 4 % Blood Morphology Comment NORMAL Sodium Level 133 L 135-145 MMOL/L Potassium Level 3.8 3.6-5.0 MMOL/L Chloride Level 100 98-107 MMOL/L Carbon Dioxide Level 24 21-32 MMOL/L Anion Gap 9 5-14 MMOL/L Blood Urea Nitrogen 16 7-18 MG/DL Creatinine 1.62 H 0.60-1.30 MG/DL Estimat Glomerular Filtration Rate 50 BUN/Creatinine Ratio 10 Glucose Level 160 H 70-105 MG/DL Calcium Level 8.8 8.5-10.1 MG/DL Corrected Calcium 9.0 8.5-10.1 MG/DL Total Bilirubin 0.5 0.1-1.0 MG/DL Aspartate Amino Transf (AST/SGOT) 34 5-34 U/L Alanine Aminotransferase (ALT/SGPT) 55 0-55 U/L Alkaline Phosphatase 65 40-136 U/L Total Protein 6.9 6.4-8.2 GM/DL Albumin 3.7 3.2-4.5 GM/DL Test 12/30/22 16:14 Range/Units Glucometer 170 H 70-110 MG/DL Physical Exam Physical Exam Vital Signs Vital Signs - First Documented 12/29/22 12/29/22 12:11 15:38 Temp 39.3 Pulse 102 Resp 36 B/P (MAP) 154/74 (100) Pulse Ox 92 O2 Delivery Room Air O2 Flow Rate 2.00 FiO2 92 Capillary Refill : Height, Weight, BMI Height: 5'11.00" Weight: 318lbs. 0.0oz. 144.539607xj; 49.47 BMI Method:Stated General Appearance: No Apparent Distress, WD/WN Neck: Normal Inspection, Supple Respiratory: Lungs Clear, Normal Breath Sounds, No Accessory Muscle Use, No Respiratory Distress Cardiovascular: Regular Rate, Rhythm, No Murmur, Normal Peripheral Pulses Extremity: Calf Tenderness (tenderness to palpation of posterior left lower leg), Swelling Skin: Warm/Dry, Erythema (erythema of left lower leg that spans from above ankle up to just below the knee. well demarcated) A/P-Cardiology Admission Diagnosis Sepsis Leukocytosis Paroxysmal atrial fibrillation Hypertension Assessment/Plan Sepsis, leukocytosis Patient had significant dyspnea in the emergency room Still having leukocytosis, receiving antibiotics. Status post acute respiratory insufficiency Reporting significant improvement Continue with diuretics and monitor as an outpatient 2D echo was done on October 06, 2022 showing normal LV size and systolic function, normal ejection fraction 60 to 65%, PA pressure 30 to 35 mmHg. Paroxysmal atrial fibrillation, currently in sinus rhythm. Patient had history of atrial fibrillation and has been compliant with his medication. Has been maintained on Multaq and Xarelto [id number] score 3, maintained on Xarelto. Left leg cellulitis, recently started on antibiotics as outpatient. Patient reports chronic left leg erythema and edema since 2020 on and off, wound is back in his leg Seen by Dr Harris Hypertension, restart home blood pressure medications and continue to monitor. Diabetes mellitus, managed by primary care team COPD/obstructive sleep apnea, has been using CPAP. Mild bilateral carotid stenosis, ultrasound was done in August 2021 Obesity History of peripheral edema, chronic. Clinical Quality Measures DVT/VTE Risk/Contraindication: Contraindications-Mechi: Other *list below* Other: poss dvt CAROLINE MOISE MD Dec 30, 2022 16:39
[2022-12-30] MEDS ORDERED: TORSEMIDE 10 MG (DEMADEX) TABLET PO SCH (17:00)
[2022-12-30] MEDS ORDERED: RIVAROXABAN 20 MG TABLET PO SCH (18:00)
[2022-12-30] MEDS: carvediloL 12.5 MG TABLET PO SCH (19:41)
[2022-12-30] MEDS: DRONEDARONE 400 MG TABLET PO SCH (19:41)
[2022-12-30] MEDS ORDERED: amLODIPine 10 MG TABLET PO SCH (21:00)
[2022-12-30] MEDS ORDERED: LOSARTAN 25 MG TABLET PO SCH (21:00)
[2022-12-30] MEDS ORDERED: NON-FORMULARY MEDICATION 1 EA EA (Magnesium Oxide (Magnesium) 500 MG) PO SCH (21:00)
[2022-12-30] MEDS ORDERED: THERAPEUTIC MULTIVITAMIN W/MINERALS TABLET PO SCH (21:00)
[2022-12-30] MEDS ORDERED: MAGNESIUM OXIDE 400 MG TABLET PO SCH (21:00)
[2022-12-30] MEDS ORDERED: TORSEMIDE 60 MG PO SCH (21:00)
[2022-12-31 01:12] VITALS: BP 114/53
[2022-12-31 04:33] VITALS: BP 106/58
[2022-12-31 06:00] LABS: BASOPHILS % (AUTO) 0 % (0-10); EOSINOPHILS % (AUTO) 0 % (0-10); HEMATOCRIT 34 % (40-54); LYMPHOCYTES # (AUTO) 1.7 10^3/uL (1.0-4.0); LYMPHOCYTES % (AUTO) 10 % (12-44); MEAN CORPUSCULAR HEMOGLOBIN 26 pg (25-34); MEAN CORPUSCULAR HGB CONC 32 g/dL (32-36); MEAN CORPUSCULAR VOLUME 82 fL (80-99); MEAN PLATELET VOLUME 10.1 fL (9.0-12.2); MONOCYTES # (AUTO) 1.2 10^3/uL (0.0-1.0); MONOCYTES % (AUTO) 7 % (0-12); NEUTROPHILS % (AUTO) 83 % (42-75); PLATELET COUNT 192 10^3/uL (130-400)
[2022-12-31] MEDS: TORSEMIDE 10 MG (DEMADEX) TABLET PO SCH ×2 (06:06→12:03)
[2022-12-31] MEDS: inSUlin ASPART 1 UNIT/0.01 ML (PER UNIT) SC SCH ×2 (06:06→12:02)
[2022-12-31 06:09] LABS: ALBUMIN 3.4 GM/DL (3.2-4.5)
[2022-12-31 06:11] LABS: TOTAL PROTEIN 6.7 GM/DL (6.4-8.2)
[2022-12-31 06:13] LABS: BILIRUBIN,TOTAL 0.3 MG/DL (0.1-1.0)
[2022-12-31 06:15] LABS: CREATININE SERUM 1.09 MG/DL (0.60-1.30)
[2022-12-31 07:31] VITALS: BP 118/59
[2022-12-31] MEDS ORDERED: NON-FORMULARY MEDICATION 1 EA EA (Fenofibrate Nanocrystallized (Fenofibrate) 145 MG) PO SCH (09:00)
[2022-12-31] MEDS ORDERED: ALLOPURINOL 300 MG TABLET PO SCH (09:00)
[2022-12-31] MEDS ORDERED: ASPIRIN enteric coated 81MG TABLET PO SCH (09:00)
[2022-12-31] MEDS ORDERED: NON-FORMULARY MEDICATION 1 EA EA (Pravastatin Sodium 20 MG) PO SCH (09:00)
[2022-12-31] MEDS ORDERED: FENOFIBRATE, Micronized 134 MG CAPSULE PO SCH (09:00)
[2022-12-31] MEDS: dexAMETHasone INJ 4 MG/ML SDV IV SCH (09:06)
[2022-12-31] MEDS: DOCUSATE SODIUM 100 MG CAPSULE PO SCH (09:06)
[2022-12-31] MEDS: AZITHROMYCIN 250 MG TABLET PO SCH (09:06)
[2022-12-31] MEDS: carvediloL 12.5 MG TABLET PO SCH (09:07)
[2022-12-31] MEDS: DRONEDARONE 400 MG TABLET PO SCH (09:07)
--- NOTE | 2022-12-31 11:03 | Cardiology Progress Note ---
Subjective Date Seen by Provider: Dec 31, 2022 Time Seen by Provider: 11:00 Subjective/Events-last exam Patient is sitting in a chair, feeling better. Focused Exam Lactate Level 12/29/22 12:06: Lactic Acid Level 3.97*H 12/29/22 14:10: Lactic Acid Level 2.93*H 12/29/22 17:10: Lactic Acid Level 1.84 Objective-Cardiology Exam Last Set of Vital Signs Vital Signs 12/29/22 12/31/22 12/31/22 19:12 06:57 07:31 Temp 36.4 Pulse 66 Resp 16 B/P (MAP) 118/59 (78) Pulse Ox 96 O2 Delivery Room Air O2 Flow Rate 0.00 FiO2 21 I&O Intake and Output 12/31/22 00:00 Intake Total 2682 ml Output Total 1007 ml Balance 1675 ml Intake Oral 2632 ml IV Total 50 ml Output Urine Total 1007 ml # Voids 1 General: Alert, Oriented X3, Cooperative HEENT: Atraumatic, PERRLA Neck: Supple, No JVD, No Thyromegaly Lungs: Clear to Auscultation, Normal Air Movement Heart: Regular Rate, Normal S1, Normal S2, No Murmurs Abdomen: Normal Bowel Sounds, Soft, No Tenderness, No Hepatosplenomegaly, No Masses Extremities: No Clubbing, No Cyanosis, Normal Pulses, No Tenderness/Swelling, Other (Left leg edema) Skin: No Rashes, No Breakdown, No Significant Lesion Neuro: Normal Gait, Normal Speech, Strength at 5/5 X4 Ext, Normal Tone, Sensation Intact Psych/Mental Status: Mental Status NL, Mood NL Results Lab Laboratory Tests 12/31/22 05:50 A/P-Cardiology Admission Diagnosis Sepsis Leukocytosis Paroxysmal atrial fibrillation Hypertension Assessment/Plan Sepsis, leukocytosis Better at this time Patient had significant dyspnea in the emergency room Still having leukocytosis, receiving antibiotics. Status post acute respiratory insufficiency Reporting significant improvement Continue with diuretics and monitor as an outpatient 2D echo was done on October 06, 2022 showing normal LV size and systolic function, normal ejection fraction 60 to 65%, PA pressure 30 to 35 mmHg. Paroxysmal atrial fibrillation, currently in sinus rhythm. Patient had history of atrial fibrillation and has been compliant with his medic ation. Has been maintained on Multaq and Xarelto [id number] score 3, maintained on Xarelto. Left leg cellulitis, recently started on antibiotics as outpatient. Patient reports chronic left leg erythema and edema since 2020 on and off, wound is back in his leg Seen by Dr Harris Hypertension, restart home blood pressure medications and continue to monitor. Diabetes mellitus, managed by primary care team COPD/obstructive sleep apnea, has been using CPAP. Mild bilateral carotid stenosis, ultrasound was done in August 2021 Obesity History of peripheral edema, chronic. CAROLINE MOISE MD Dec 31, 2022 11:03
[2022-12-31 11:54] VITALS: BP 101/52
[2022-12-31] MEDS: cefTRIAXone IV/IM 1,000 MG in NS (IVPB) 50 ML 50 ML IV SCH (12:02)
[2022-12-31] MEDS ORDERED: AMOX1TAB12 PO (12:25)
--- NOTE | 2022-12-31 12:26 | Discharge Summary ---
Diagnosis/Chief Complaint Date of Admission Dec 29, 2022 at 15:35 Date of Discharge Discharge Date: Dec 31, 2022 Discharge Diagnosis - Respiratory distress > steroid and antibiotic therapy to cover possible pneumonitis/pneumonia > Respiratory function improved this morning, no acute distress - Sepsis > possibly secondary to lower leg infection from wound present on leg > wound care on board > continue antibiotic therapy with Zithromax and Rocephin - Acute kidney injury > Upward Cr trend 1.39-->1.62 > continue to trend Cr - Hypertension > Continue ambulatory medications - Diabetes > Sliding scale protocol - Atrial fibrillation > continue ambulatory medications Reason Hospital Visit Chief complaint: Acute respiratory failure with fever with left lower lower leg cellulitis HPI: This is a 57-year-old male known to me from prior admission who presented to the ER with fever and acute respiratory failure after bailing moldy hay. He was also noted to have severe left lower extremity cellulitis. He has had recurrent cellulitis of the left leg since he injured it 2 years ago. Wound care will see the wound on her left lower leg. Currently he is doing much better and does not require the oxygen so he will be moved downstairs to fourth floor. Discharge Summary Discharge Physical Examination Allergies: Coded Allergies: cyclobenzaprine (Verified Allergy, Mild, ITCHING, 07/02/19) lisinopril (Verified Allergy, Mild, COUGH, 07/02/19) Vitals & I&Os Vital Signs Date Time Temp Pulse Resp B/P (MAP) Pulse Ox O2 Delivery O2 Flow Rate FiO2 12/31/22 13:30 36.5 73 16 101/52 96 Room Air 0.00 92 General Appearance: Alert, Oriented X3, Cooperative Respiratory: Clear to Auscultation Cardiovascular: Regular Rate Skin: Other (Resolving left leg cellulitis) Psych/Mental Status: Mental Status NL Hospital Course Was the Problem List Reviewed?: Yes Hospital Course: 57 y/o male presented to the ED with SOB and left lower extremity swelling around a small wound. He has a history of Paroxysmal afib, chronic peripheral edema, HTN, high cholesterol, obstructive sleep apnea, GERD, diabetes and gout. 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 No clots were found. Patient said his episode started while he was baling hay on the morning of his admission and a similar incidence had occurred before. He denied any chest pain, abdominal pain or nausea and vomiting, but was febrile when he arrived to the ED. He was found to have leukocytosis. Sepsis protocol was initiated and patient was put on ceftriaxone on 12/30/22. On 12/31/22 Patient was afebrile and left lower extremity swelling had decreased. He was able to ambulate without any assistance and had no difficulty breathing or pain. Stated he had normal urination and bowel movements. Patient was discharged with augmentin on 12/31/22. [facility] Labs (last 24 hrs) Laboratory Tests 12/29/22 12:06: White Blood Count 22.7H, Red Blood Count 4.59, Hemoglobin 12.2L, Hematocrit 37L, Mean Corpuscular Volume 81, Mean Corpuscular Hemoglobin 27, Mean Corpuscular Hemoglobin Concent 33, Red Cell Distribution Width 13.8, Platelet Count 212, Mean Platelet Volume 9.5, Immature Granulocyte % (Auto) 1, Neutrophils (%) (Auto) 88H, Lymphocytes (%) (Auto) 7L, Monocytes (%) (Auto) 4, Eosinophils (%) (Auto) 0, Basophils (%) (Auto) 0, Neutrophils # (Auto) 19.9H, Lymphocytes # (Auto) 1.6, Monocytes # (Auto) 0.9, Eosinophils # (Auto) 0.0, Basophils # (Auto) 0.1, Immature Granulocyte # (Auto) 0.2H, Sodium Level 133L, Potassium Level 3.8, Chloride Level 96L, Carbon Dioxide Level 23, Anion Gap 14, Blood Urea Nitrogen 13, Creatinine 1.39H, Estimat Glomerular Filtration Rate 59, BUN/Creatinine Ratio 9, Glucose Level 249H, Lactic Acid Level 3.97*H, Calcium Level 9.4, Corrected Calcium 9.3, Total Bilirubin 0.6, Aspartate Amino Transf (AST/SGOT) 52H, Alanine Aminotransferase (ALT/SGPT) 69H, Alkaline Phosphatase 77, Troponin I < 0.30, Total Protein 7.1, Albumin 4.1 12/29/22 12:17: SARS-CoV-2 RNA (RT-PCR) Not Detected 12/29/22 12:45: Blood Gas Puncture Site L wrist, Blood Gas Patient Temperature 39.3, Arterial Blood pH 7.44H, Arterial Blood Partial Pressure CO2 41, Arterial Blood Partial Pressure O2 66L, Arterial Blood HCO3 28H, Arterial Blood Total CO2 29.1, Arterial Blood Oxygen Saturation 93L, Arterial Blood Base Excess 3.3H, Suresh Test , Blood Gas Ventilator Setting NO, Blood Gas Inspired Oxygen 2L 12/29/22 13:09: Urine Color YELLOW, Urine Clarity CLEAR, Urine pH 5.5, Urine Specific [place] 1.010L, Urine Protein NEGATIVE, Urine Glucose (UA) NEGATIVE, Urine Ketones NEGATIVE, Urine Nitrite NEGATIVE, Urine Bilirubin NEGATIVE, Urine Urobilinogen 0.2, Urine Leukocyte Esterase NEGATIVE, Urine RBC (Auto) 1+H, Urine RBC 10-25H, Urine WBC NONE, Urine Crystals NONE, Urine Bacteria NEGATIVE, Urine Casts NONE, Urine Mucus SMALLH, Urine Culture Indicated CULTURE PENDING 12/29/22 14:10: Lactic Acid Level 2.93*H 12/29/22 16:34: Glucometer 193H 12/29/22 17:10: Lactic Acid Level 1.84 12/29/22 21:36: Glucometer 192H 12/30/22 04:20: White Blood Count 21.4H, Red Blood Count 4.37, Hemoglobin 11.6L, Hematocrit 36L, Mean Corpuscular Volume 81, Mean Corpuscular Hemoglobin 27, Mean Corpuscular Hemoglobin Concent 33, Red Cell Distribution Width 14.0, Platelet Count 259, Mean Platelet Volume 10.6, Immature Granulocyte % (Auto) 1, Neutrophils (%) (Auto) 86H, Lymphocytes (%) (Auto) 8L, Monocytes (%) (Auto) 4, Eosinophils (%) (Auto) 0, Basophils (%) (Auto) 0, Neutrophils # (Auto) 18.5H, Lymphocytes # (Auto) 1.8, Monocytes # (Auto) 0.9, Eosinophils # (Auto) 0.0, Basophils # (Auto) 0.0, Immature Granulocyte # (Auto) 0.2H, Neutrophils % (Manual) 70, Lymphocytes % (Manual) 5, Monocytes % (Manual) 2, Eosinophils % (Manual) 0, Basophils % (Manual) 0, Band Neutrophils 19, Reactive Lymphocytes 4, Blood Morphology Comment NORMAL, Sodium Level 133L, Potassium Level 3.8, Chloride Level 100, Carbon Dioxide Level 24, Anion Gap 9, Blood Urea Nitrogen 16, Creatinine 1.62H, Estimat Glomerular Filtration Rate 50, BUN/Creatinine Ratio 10, Glucose Level 160H, Calcium Level 8.8, Corrected Calcium 9.0, Total Bilirubin 0.5, Aspartate Amino Transf (AST/SGOT) 34, Alanine Aminotransferase (ALT/SGPT) 55, Alkaline Phosphatase 65, Total Protein 6.9, Albumin 3.7 12/30/22 11:05: Glucometer 176H 12/30/22 16:14: Glucometer 170H 12/30/22 19:28: Glucometer 211H 12/31/22 05:50: White Blood Count 17.0H, Red Blood Count 4.17L, Hemoglobin 11.0L, Hematocrit 34L , Mean Corpuscular Volume 82, Mean Corpuscular Hemoglobin 26, Mean Corpuscular Hemoglobin Concent 32, Red Cell Distribution Width 14.1, Platelet Count 192, Me an Platelet Volume 10.1, Immature Granulocyte % (Auto) 1, Neutrophils (%) (Auto) 83H, Lymphocytes (%) (Auto) 10L, Monocytes (%) (Auto) 7, Eosinophils (%) (Auto) 0, Basophils (%) (Auto) 0, Neutrophils # (Auto) 14.0H, Lymphocytes # (Auto) 1.7, Monocytes # (Auto) 1.2H, Eosinophils # (Auto) 0.0, Basophils # (Auto) 0.0, Immature Granulocyte # (Auto) 0.1, Sodium Level 135, Potassium Level 4.0, Chloride Level 103, Carbon Dioxide Level 25, Anion Gap 7, Blood Urea Nitrogen 14, Creatinine 1.09, Estimat Glomerular Filtration Rate 80, BUN/Creatinine Ratio 13, Glucose Level 233H, Calcium Level 9.0, Corrected Calcium 9.5, Total Bilirubin 0.3, Aspartate Amino Transf (AST/SGOT) 23, Alanine Aminotransferase (ALT/SGPT) 45, Alkaline Phosphatase 58, Total Protein 6.7, Albumin 3.4 12/31/22 05:51: Glucometer 233H 12/31/22 10:39: Glucometer 346H Microbiology 12/29/22 Urine Culture - Final, Complete Growth Consistent 12/29/22 Blood Culture - Preliminary, Resulted No growth Pending Labs Microbiology Date/Time Source Procedure Growth Status 12/29/22 13:09 Urine Clean Catch Urine Culture - Final Growth Consistent Complete 12/29/22 12:15 Peripheral Lt Ac Blood Culture - Preliminary No growth Resulted 12/29/22 12:06 Peripheral Lt Ac Blood Culture - Preliminary No growth Resulted Laboratory Tests 12/29/22 12:06: White Blood Count 22.7, Red Blood Count 4.59, Hemoglobin 12.2, Hematocrit 37, Mean Corpuscular Volume 81, Mean Corpuscular Hemoglobin 27, Mean Corpuscular Hemoglobin Concent 33, Red Cell Distribution Width 13.8, Platelet Count 212, Mean Platelet Volume 9.5, Immature Granulocyte % (Auto) 1, Neutrophils (%) (Auto) 88, Lymphocytes (%) (Auto) 7, Monocytes (%) (Auto) 4, Eosinophils (%) (Auto) 0, Basophils (%) (Auto) 0, Neutrophils # (Auto) 19.9, Lymphocytes # (Auto) 1.6, Monocytes # (Auto) 0.9, Eosinophils # (Auto) 0.0, Basophils # (Auto) 0.1, Immature Granulocyte # (Auto) 0.2, Sodium Level 133, Potassium Level 3.8, Chloride Level 96, Carbon Dioxide Level 23, Anion Gap 14, Blood Urea Nitrogen 13, Creatinine 1.39, Estimat Glomerular Filtration Rate 59, BUN/Creatinine Ratio 9, Glucose Level 249, Lactic Acid Level 3.97, Calcium Level 9.4, Corrected Calcium 9.3, Total Bilirubin 0.6, Aspartate Amino Transf (AST/SGOT) 52, Alanine Aminotransferase (ALT/SGPT) 69, Alkaline Phosphatase 77, Troponin I < 0.30, Total Protein 7.1, Albumin 4.1 12/29/22 12:17: SARS-CoV-2 RNA (RT-PCR) Not Detected 12/29/22 12:45: Blood Gas Puncture Site L wrist, Blood Gas Patient Temperature 39.3, Arterial Blood pH 7.44, Arterial Blood Partial Pressure CO2 41, Arterial Blood Partial Pressure O2 66, Arterial Blood HCO3 28, Arterial Blood Total CO2 29.1, Arterial Blood Oxygen Saturation 93, Arterial Blood Base Excess 3.3, Suresh Test , Blood Gas Ventilator Setting NO, Blood Gas Inspired Oxygen 2L 12/29/22 13:09: Urine Color YELLOW, Urine Clarity CLEAR, Urine pH 5.5, Urine Specific [place] 1.010, Urine Protein NEGATIVE, Urine Glucose (UA) NEGATIVE, Urine Ketones NEGATIVE, Urine Nitrite NEGATIVE, Urine Bilirubin NEGATIVE, Urine Urobilinogen 0.2, Urine Leukocyte Esterase NEGATIVE, Urine RBC (Auto) 1+, Urine RBC 10-25, Urine WBC NONE, Urine Crystals NONE, Urine Bacteria NEGATIVE, Urine Casts NONE, Urine Mucus SMALL, Urine Culture Indicated CULTURE PENDING 12/29/22 14:10: Lactic Acid Level 2.93 12/29/22 16:34: Glucometer 193 12/29/22 17:10: Lactic Acid Level 1.84 12/29/22 21:36: Glucometer 192 12/30/22 04:20: White Blood Count 21.4, Red Blood Count 4.37, Hemoglobin 11.6, Hematocrit 36, Mean Corpuscular Volume 81, Mean Corpuscular Hemoglobin 27, Mean Corpuscular Hemoglobin Concent 33, Red Cell Distribution Width 14.0, Platelet Count 259, Mean Platelet Volume 10.6, Immature Granulocyte % (Auto) 1, Neutrophils (%) (Auto) 86, Lymphocytes (%) (Auto) 8, Monocytes (%) (Auto) 4, Eosinophils (%) (Auto) 0, Basophils (%) (Auto) 0, Neutrophils # (Auto) 18.5, Lymphocytes # (Auto) 1.8, Monocytes # (Auto) 0.9, Eosinophils # (Auto) 0.0, Basophils # (Auto) 0.0, Immature Granulocyte # (Auto) 0.2, Neutrophils % (Manual) 70, Lymphocytes % (Manual) 5, Monocytes % (Manual) 2, Eosinophils % (Manual) 0, Basophils % (Manual) 0, Band Neutrophils 19, Reactive Lymphocytes 4, Blood Morphology Comment NORMAL, Sodium Level 133, Potassium Level 3.8, Chloride Level 100, Carbon Dioxide Level 24, Anion Gap 9, Blood Urea Nitrogen 16, Creatinine 1.62, Estimat Glomerular Filtration Rate 50, BUN/Creatinine Ratio 10, Glucose Level 160, Calcium Level 8.8, Corrected Calcium 9.0, Total Bilirubin 0.5, Aspartate Amino Transf (AST/SGOT) 34, Alanine Aminotransferase (ALT/SGPT) 55, Alkaline Phosphatase 65, Total Protein 6.9, Albumin 3.7 12/30/22 11:05: Glucometer 176 12/30/22 16:14: Glucometer 170 12/30/22 19:28: Glucometer 211 12/31/22 05:50: White Blood Count 17.0, Red Blood Count 4.17, Hemoglobin 11.0, Hematocrit 34, Mean Corpuscular Volume 82, Mean Corpuscular Hemoglobin 26, Mean Corpuscular Hemoglobin Concent 32, Red Cell Distribution Width 14.1, Platelet Count 192, Mean Platelet Volume 10.1, Immature Granulocyte % (Auto) 1, Neutrophils (%) (Auto) 83, Lymphocytes (%) (Auto) 10, Monocytes (%) (Auto) 7, Eosinophils (%) (Auto) 0, Basophils (%) (Auto) 0, Neutrophils # (Auto) 14.0, Lymphocytes # (Auto) 1.7, Monocytes # (Auto) 1.2, Eosinophils # (Auto) 0.0, Basophils # (Auto) 0.0, Immature Granulocyte # (Auto) 0.1, Sodium Level 135, Potassium Level 4.0, Chloride Level 103, Carbon Dioxide Level 25, Anion Gap 7, Blood Urea Nitrogen 14, Creatinine 1.09, Estimat Glomerular Filtration Rate 80, BUN/Creatinine Ratio 13, Glucose Level 233, Calcium Level 9.0, Corrected Calcium 9.5, Total Bilirubin 0.3, Aspartate Amino Transf (AST/SGOT) 23, Alanine Aminotransferase (ALT/SGPT) 45, Alkaline Phosphatase 58, Total Protein 6.7, Albumin 3.4 12/31/22 05:51: Glucometer 233 12/31/22 10:39: Glucometer 346 Discharge Home Medications: Active Scripts Active Amox Tr-K Clv 875-125 mg Tab (Amoxicillin/Potassium Clav) 875 Mg-125 Mg Tablet 1 Each PO BID Reported Tramadol HCl 50 Mg Tablet 50 Mg PO BID PRN Ventolin Hfa (Albuterol Sulfate) 1 Puff Puff 1-2 Puff INH Q6H PRN Triamcinolone Acetonide 0.1% Cream (Triamcinolone Acet) 0.1 % Cr 1 Applic TP BID PRN Multaq (Dronedarone HCl) 400 Mg Tablet 400 Mg PO BID Magnesium (Magnesium Oxide) 250 Mg Tablet 500 Mg PO HS TAKES 2 (250MG) TABS Carvedilol 25 Mg Tablet 25 Mg PO BID Amlodipine Besylate 10 Mg Tablet 10 Mg PO HS Celecoxib 200 Mg Capsule 200 Mg PO DAILY Aspirin EC (Aspirin) 81 Mg Tablet.dr 81 Mg PO DAILY Metformin HCl 500 Mg Tablet 500 Mg PO BID Allopurinol 300 Mg Tablet 300 Mg PO DAILY Fenofibrate (Fenofibrate Nanocrystallized) 145 Mg Tablet 145 Mg PO DAILY Multivitamin 1 Each Tablet 1 Each PO HS Pravastatin Sodium 20 Mg Tablet 20 Mg PO DAILY Xarelto (Rivaroxaban) 20 Mg Tablet 20 Mg PO HS Losartan Potassium 25 Mg Tablet 25 Mg PO HS Torsemide 20 Mg Tablet 60 Mg PO BID TAKES 3 (20MG) TABS Instructions to patient/family Please see electronic discharge instructions given to patient. Diagnosis/Problems Diagnosis/Problems (1) Respiratory failure Qualifiers: Qualified Codes: J96.01 - Acute respiratory failure with hypoxia (2) Fever in adult Status: Acute (3) Sepsis Status: Acute (4) Left leg swelling (5) Hypoxia Status: Acute (6) Abrasion, left lower leg, initial encounter Status: Acute Clinical Quality Measures DVT/VTE Risk/Contraindication: Contraindications-Mechi: Other *list below* Other: poss dvt FINA WILSON DO Dec 31, 2022 12:26
[2022-12-31 13:30] VITALS: BP 101/52
--- NOTE | 2022-12-31 14:00 | Progress Note ---
[facility] 12/31/22 1400: Progress Note Hospital Course: 57 y/o male presented to the ED with SOB and left lower extremity swelling around a small wound. He has a history of Paroxysmal afib, chronic peripheral edema, HTN, high cholesterol, obstructive sleep apnea, GERD, diabetes and gout. 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 No clots were found. Yary rausch said his episode started while he was baling hay on the morning of his admission and a similar incidence had occurred before. He denied any chest pain, abdominal pain or nausea and vomiting, but was febrile when he arrived to the ED. He was found to have leukocytosis. Sepsis protocol was initiated and patient was put on ceftriaxone on 12/30/22. On 12/31/22 Patient was afebrile and left lower extremity swelling had decreased. He was able to ambulate without any assistance and had no difficulty breathing or pain. Stated he had normal urination and bowel movements. Patient was discharged with augmentin on 12/31/22. ANA ROSA WILSON DO 12/31/222051: Supervisory-Addendum Brief Verification & Attestation Participated in pt care: history, MDM, physical Personally performed: exam, history, MDM, supervision of care Care discussed with: Medical Student Procedures: n/a Results interpretation: Verified all documentation Verification and Attestation of Medical Student E/M Service A medical student performed and documented this service in my presence. I reviewed and verified all information documented by the medical student and made modifications to such information, when appropriate. I personally performed the physical exam and medical decision making. Ana Rosa Wilson Dec 31, 2022,20:51 [facility] Dec 31, 2022 14:00 ANA ROSA WILSON DO Dec 31, 2022 20:52
[2022-12-31] MEDS ORDERED: metFORMIN 500 MG TABLET PO SCH (21:00)
== END 2022-12-31 13:30 | disposition home or self-care (01) | DRG 871 ==
LOC: EDUNIT# 11:56 → ER FS 11:57 → CSD 15:35 → 4TH 12-30 15:34
PROVIDERS: ADMIT Internal Medicine; ATTEND Internal Medicine
PROC: 5A09357 Assistance with Respiratory Ventilation, Less than 24 Consecutive Hours, Continuous Positive Airway Pressure (ICD-10-PCS; principal; 2022-12-29)
DX: A41.9 Sepsis, unspecified organism (principal); J18.9 Pneumonia, unspecified organism; J96.01 Acute respiratory failure with hypoxia; N17.9 Acute kidney failure, unspecified; Z68.42 Body mass index [BMI] 45.0-49.9, adult; L03.116 Cellulitis of left lower limb; L97.229 Non-pressure chronic ulcer of left calf with unspecified severity; E66.01 Morbid (severe) obesity due to excess calories; Z20.822 Contact with and (suspected) exposure to COVID-19; K21.9 Gastro-esophageal reflux disease without esophagitis; E11.9 Type 2 diabetes mellitus without complications; I48.0 Paroxysmal atrial fibrillation; I10 Essential (primary) hypertension; G47.33 Obstructive sleep apnea (adult) (pediatric); E78.00 Pure hypercholesterolemia, unspecified; I87.8 Other specified disorders of veins; I65.23 Occlusion and stenosis of bilateral carotid arteries; R60.0 Localized edema; M10.9 Gout, unspecified; H54.7 Unspecified visual loss; F17.220 Nicotine dependence, chewing tobacco, uncomplicated; M19.90 Unspecified osteoarthritis, unspecified site; Z79.84 Long term (current) use of oral hypoglycemic drugs; Z79.01 Long term (current) use of anticoagulants; Z79.82 Long term (current) use of aspirin
CPT/HCPCS: 36415; 71045; 71275; 80053; 81000; 82805; 82947; 83605; 84484; 85007; 85025; 85027; 87040; 87088; 87636; 93005; 94660; 94760; Q9967

== ENCOUNTER → 2023-03-07 | Outpatient (CLI) | payer BC ==
[~2023-03-07] MED LIST changes: +AMOX1TAB12 PO; +CATHETER FLUSH 10 ML SYR IVP PRN; -CELE-63 PO; +CELE-91 PO; +REGADENOSON 0.4 MG/5 ML SYR IV ONE; +RT-ALBUINH INH; +TR1C15 TP; +TRM50T PO
[2023-03-07 09:32] VITALS: BP 176/91
--- NOTE | 2023-03-07 16:27 | Cardiology Stress Test Report ---
Stress Test Report Date of Procedure/Referring: Date of Procedure: Mar 07, 2023 PCP Kumar Covarrubias MD Admitting Physician Admitting Physician: Attending Physician: Jeanette Ingram Baseline Heart Rate: 68 Baseline Blood Pressure: Blood Pressure Systolic: 176 Blood Pressure Diastolic: 91 Baseline Vitals Vital Signs Date Time Temp Pulse Resp B/P (MAP) Pulse Ox O2 Delivery O2 Flow Rate FiO2 03/07/23 09:32 68 176/91 (119) 97 Baseline EKG: Baseline EKG: RBBB Summary After explaining the procedure to the patient, he signed a consent and then brought to the stress nuclear laboratory. Patient received 0.4 mg Lexiscan for stress test, ECG, heart rate and blood pressure were monitored continuously. Resting and stress dose of radio tracer were injected, imaging was acquired and reviewed in short axis, horizontal long axis and vertical long axis views. TID: 1.1 SSS: 0 SDS: 0 EF: 55 Patient tolerated Lexiscan well Baseline right bundle branch block persisted during test Patchy uptake with poor quality SPECT images, overall there is no significant ischemia or infarction noted on SPECT images Normal left ventricular size, ejection fraction 55% Copy Copies To 1: KUMAR COVARRBUIAS MD, BASHAR J MD Mar 07, 2023 16:27
== END ==
LOC: CARD 07:40
PROVIDERS: ATTEND Physician Assistant
DX: I48.0 Paroxysmal atrial fibrillation (principal)
CPT/HCPCS: 78452; 93017